=== PATIENT | male | born 1965 | race Caucasian/White ===

== ENCOUNTER 2016-12-14 00:31 | Emergency (ER) | payer OTHER ==
[~2016-12-14] VITALS: Ht 170.2 cm; Wt 64.7 kg
[2016-12-14 00:33] VITALS: BP 107/71; PULSE 71; TEMP 36.8; O2SAT 96; Ht 170.2 cm; Wt 64.7 kg
[2016-12-14] MEDS ORDERED: KETOROLAC TROMETHAMINE 60 MG/2 ML VIAL IM STA (00:43)
--- NOTE | 2016-12-14 01:30 | EMERGENCY ROOM VISIT NOTE ---
History First contact with patient: 00:35 Chief Complaint: BACK PAIN Stated Complaint: BACK MUSCLE History of Present Illness The patient is a 51 year old male who presents to the Emergency Room with complaints of low back pain described as aching, ranging in severity 8 out of 10 that radiates to his right side. He does a lot of lifting yesterday. Movement makes it worse, nothing makes it better. Patient does smoke and has COPD. Patient denies chest pain, dyspnea, fever, chills, nausea, vomiting, diarrhea, abdominal pain, leg pain or weakness, inability to walk, fever, chills , IV drug abuse. No trauma to the back. Review of Systems See HPI for pertinent positives & negatives. A total of 10 systems reviewed and were otherwise negative. Past Medical/Surgical History Medical Problems: (1) Asthma (2) Broken ribs (3) Low back pain (4) Lower back pain (5) Sacral contusion Surgical Problems: (1) History of hernia repair COPD Family History Diabetes mellitus Social History Smoking Status: Current Every Day Smoker Alcohol Use: occasionally Drug Use: none Marital Status: Housing Status: lives with significant other Occupation Status: unemployed Current/Historical Medications No Active Prescriptions or Reported Meds Allergies Coded Allergies: No Known Allergies (Unverified , 12/14/16) Physical Exam Vital Signs Date Time Temp Pulse Resp B/P Pulse Ox O2 Delivery O2 Flow Rate FiO2 12/14/16 00:33 36.8 71 18 107/71 96 Room Air Physical Exam VITALS: Vitals are noted on the nurse's note and reviewed by myself. Vital signs stable. GENERAL: Pleasant male, in no acute distress, nondiaphoretic, well-developed well-nourished. SKIN: Capillary reflex less than 2 seconds. HEENT: Normocephalic. PERRLA. EOMI. Nares patent. Mucous membranes moist. Neck is supple without nuchal rigidity. HEART: Regular rate and rhythm LUNGS: Mild diffuse end expiratory wheezes, without rales or rhonchi. No retractions or accessory muscle use. ABDOMEN: Positive bowel sounds x 4. Normal tympanic percussion. Soft, nontender, without masses or organomegaly. Leyva sign negative. No guarding or rebound tenderness. MUSCULOSKELETAL: No gross musculoskeletal defects. No thoracic tenderness on exam. Mid lumbar tenderness on exam easily reproducing symptoms. Straight leg raise. Patient can walk on toes and heels. 5 out of 5 strength throughout NEURO: Patient was alert and oriented to person place and time. Normal sensation to light and sharp touch. Deep tendon reflexes 2+, patella bilaterally. No focal neurological deficits. Medical Decision & Procedures Medications Administered Medications (Trade) Dose Ordered Sig/Jf Route Start Time Stop Time Status Last Admin Dose Admin Ketorolac Tromethamine (Toradol Inj) 60 mg NOW STAT IM 12/14/16 00:43 12/14/16 00:44 DC 12/14/16 00:43 60 MG ED Course Prior records/ancillary studies reviewed. Triage Nursing notes reviewed. Additional history obtained from []. The patient's history was concerning for back pain. Differential diagnosis: Etiologies such as musculoskeletal, disc herniation, fracture, aortic disease, metastatic disease, cord compression, discitis, infection, renal colic, gastrointestinal, acute exacerbation of chronic back pain, sciatica, cauda equina, as well as others were entertained. Physical findings: As above. No focal neurologic findings noted. [] ER treatment provided: [] On reassessment the patient felt better. Diagnostics interpreted by me: The labs revealed [] Imaging studies: CT L SPINE: No fracture or malalignment. Left far lateral disc protrusion (lateral aspect of the neural foramina) at L3- 4 with mild to moderate narrowing of the left neural foramen and may be touching the exiting nerve root. No significant central canal narrowing. Somewhat limited by motion. There may be may be trace left perinephric stranding. No renal obstruction. Radiologist: Km Mcpherson M.D. This appears to be consistent with []. The patient's physical examination and detailed history did not reveal any red flags for back pain such as those listed in the differential diagnosis. Therefore advanced diagnostics and consultations were felt to be unwarranted. By the evaluation outlined above emergent etiologies such as fracture, aortic disease, metastatic disease, infection, renal colic, gastrointestinal, cord compression, cauda equina, as well as others were deemed relatively unlikely. The pt informed about the findings as listed above. All questions were answered and pleased with the treatment. Return instructions were outlined and the patient was discharged in stable condition. Outpatient prescription management: Oxy IR 5mg 1-2 po Q4 hrs prn Referral: The patient was referred back to primary care physician for follow-up in 2 to 3 days for a recheck of the current condition. Medical Decision as above Impression Primary Impression: Lumbar strain Departure Information Dispostion Home / Self-Care Condition GOOD Prescriptions No Active Prescriptions or Reported Meds Referrals No Doctor, Assigned (PCP) Patient Instructions My [facility] Additional Instructions DO NOT drive, drink alcohol, operate machinery, or perform dangerous activities today. You were given medications in the ER that can affect your ability to safely function or operate a vehicle. Oxycodone (OxyIR) 5mg: Take 1-2 pills every four hours for breakthrough pain. Avoid alcohol, operating machinery or dangerous equipment, working on ladders or roofs, DRIVING, or situations where being under the influence may be dangerous. It is recommended to use an btsb-qhc-tfkyrxv stool softener such as Colace, 100mg twice daily while taking this medication to avoid constipation. Ibuprofen(Motrin, Advil) may be used for fever or pain. Use 600mg every six hours as needed. Take with food. Avoid using more than 2400mg in a 24 hour period. Do not use 2400mg per day for more than three consecutive days without physician direction. Prolonged inappropriate use can lead to stomach upset or ulcers. This medication can be taken if you need to drive, work, or perform activities which may be dangerous when taking narcotic pain medication. (AND/OR) Acetaminophen(Tylenol) may be used for fever or pain. Use 1000mg every six hours as needed. Avoid using more than 3000mg in a 24 hour period. This medication can be taken if you need to drive, work, or perform activities which may be dangerous when taking narcotic pain medication. Rest and avoid heavy lifting until your symptoms resolve and then gradually return to full activity. A good rule of thumb is if it hurts your back to perform a certain activity, then it should be avoided until you are healthy again. A heating pad, warm compresses, or a hot shower may help with tight muscles and can be done several times a day as needed. Continue current medications. Return to the ER immediately for any numbness, tingling, severe pain, loss of control of your bowels or bladder, inability to walk, or as needed. Follow up with your primary care physician/orthopedics spine within 3-5 days for a recheck of your current condition. Problem Qualifiers Primary Impression: Lumbar strain Encounter type: initial encounter Qualified Codes: S39.012A - Strain of muscle, fascia and tendon of lower back, initial encounter
[2016-12-14] MEDS ORDERED: OXYC1TAB3 PO (01:32)
[2016-12-14] MEDS ORDERED: OXYCODONE IR HOME PACK PO ONE (01:45)
--- NOTE | 2016-12-14 07:30 | DIAGNOSTIC IMAGING REPORT ---
CT SCAN OF THE LUMBAR SPINE WITHOUT IV CONTRAST CLINICAL HISTORY: Low back pain. Lifting injury. COMPARISON STUDY: Radiographs of lumbar spine dated 05/22/2016. TECHNIQUE: CT scan of lumbar spine is performed from the lower thoracic spine to the sacrum. Images are reviewed in the axial, sagittal, and coronal planes. IV contrast was not administered for this examination. CT DOSE: 618.77 mGy.cm FINDINGS: The skeletal structures are well mineralized. There is no evidence of fracture or malalignment. Vertebral body height and alignment are maintained. The transverse and spinous processes are intact. There is no spondylolysis. No lytic or blastic lesions are seen. Small anterior osteophytes are seen throughout. The disc spaces are preserved. The central canal appears patent. No large disc herniation is seen. Minimal disc bulge is noted at L4-L5 and L5-S1. There is left lateral disc bulge at L3-L4 which causes mild subarticular stenosis. No significant neural foraminal stenosis is appreciated. The paraspinous soft tissues are within normal limits. There is minimal atherosclerotic calcification of the abdominal aorta. The visualized sacrum and bony pelvis are intact. IMPRESSION: No acute bony abnormality is seen involving the lumbar spine. Electronically signed by: Chris Soni M.D. 12/14/2016 7:29 AM Dictated Date/Time: 12/14/2016 7:23 AM
== END 2016-12-14 01:39 | disposition home or self-care (01) ==
LOC: C.EDB 00:31
DX: S39.012A Strain of muscle, fascia and tendon of lower back, initial encounter (principal); J44.9 Chronic obstructive pulmonary disease, unspecified; J45.909 Unspecified asthma, uncomplicated; F17.200 Nicotine dependence, unspecified, uncomplicated; Z83.3 Family history of diabetes mellitus; X50.0XXA Overexertion from strenuous movement or load, initial encounter; Y99.8 Other external cause status

== ENCOUNTER 2017-02-12 22:41 | Emergency (ER) | payer OTHER ==
[~2017-02-12] VITALS: Ht 170.2 cm; Wt 63.7 kg
[~2017-02-12 22:41] MED LIST: OXYC1TAB3 PO
[2017-02-12 22:51] VITALS: TEMP 36.4; Ht 170.2 cm; Wt 63.7 kg
[2017-02-12] MEDS ORDERED: TRAMADOL HCL 50 MG HOME PACK PO ONE (23:45)
[2017-02-12] MEDS ORDERED: TRAM-10 PO (23:53)
[2017-02-12] MEDS ORDERED: PRED50TA PO (23:53)
--- NOTE | 2017-02-12 23:54 | EMERGENCY ROOM VISIT NOTE ---
ED Visit Note First contact with patient: 23:04 Chief Complaint: Low Back Pain, Fell on LEFT Hip/Tailbone History of Present Illness: Patient is a 51-year-old male who presents to the emergency Department this evening for evaluation of his low back pain. He reports a history of chronic low back pain issues. He reports that while outside in his yard, he slipped in the grass causing him to fall and landing on a rock. He reports immediate pain. He is tried ibuprofen and Tylenol without relief of symptoms. He denies any numbness or tingling into the distal tremor. He reports no loss of control bowel/bladder saddle anesthesia. The patient rates his current discomfort as an 8/10. He denies abdominal pain, hematuria, or dysuria. Medications: Reviewed and discussed with the patient. Allergies: No known allergies. PMH: No pertinent past medical history. SHx: Patient is a 51-year-old male who lives locally. ROS: All pertinent positive and negative review of systems are appropriately documented in the History of Present Illness. Physical Exam: VITAL SIGNS - Vital signs and nursing notes were reviewed. GENERAL - 51-year-old male appearing his stated age and in noticeable discomfort throughout the exam. NECK - FROM of the cervical spine. ABDOMEN - Abdominal contour flat without pulsations or visible masses. BS normoactive all four quadrants. No tenderness, palpable masses, hepatosplenomegaly, or ascites noted. MUSCULOSKELETAL - ROM of the lumbar spine region was subjectively limited secondary to patient discomfort. Pt was seated on the exam table. Pt made semi- guarded movements when asked to change position. No step-off deformities were palpated down the thoracolumbar spines. Moderate subjective Tenderness to Palpation experienced at the level of the LEFT sided lumbar paraspinal muscle distribution. No reproducible tenderness to palpation across the iliac spine. NEUROLOGIC - REFLEXES: +3/4 patellar reflexes B/L. SENSORY: Spinothalamic tract was found to be intact with ability to discriminate sharp versus dull sensation at the level of hip joint down do the great toe. No sensory defects of the dorsal column were appreciated utilizing light touch for evaluation. CEREBELLAR: Pt able to perform rapid alternating movements of the feet. EXTREMITIES - Range of Motion - No tremors, ticks, or fasciculations of the lower extremities noticed during inspection. Pt had +5/5 strength appreciated bilaterally in the lower extremities against examiner's resistance. VASCULAR - Capillary refill of the great toe was brisk. No mottling or blanching of the extremities present. +3/5 dorsalis pedis pulses palpated bilaterally. IMAGING: X-ray of the lumbar spine was obtained and reviewed by myself. No acute fractures, dislocations, or subluxations appreciated per my interpretation. Radiologist's impression unavailable at the time of dictation. ED Course: Patient was seen and evaluate by myself. Previous emergency department visit notes were reviewed. The patient has been seen in multiple occasions for pain related complaints, particularly of his lumbar spine. He does complain a recent fall, however his exam is not consistent with any new or recent trauma. X-ray demonstrates no acute fractures. The patient was provided Ultram for home as well as prednisone. He'll follow-up with his primary care provider for continued management. He will return for any changing/worsening symptoms. Patient discharged home in good condition. In the evaluation and treatment of this patient the following differential diagnoses were considered: Cauda equina syndrome, discitis, HNP, sciatica, epidural abscess, psoas abscess, musculoskeletal strain, lumbar fracture, lumbar dislocation, lumbar subluxation, spondylolisthesis, spondylosis, or compression fracture. Impression: Fall, Lumbar Contusion Discharge Instructions: You have been treated in the Emergency Department for Back Pain. You have received pain medicine in the emergency department which impairs your ability to operate a vehicle. It is illegal for you to drive after receiving these medicines. You have been prescribed Ultram to be used for pain control. You cannot drive or consume alcohol while on this medicine. This medicine should only be used for pain that cannot be controlled with evwd-jhd-cpuhbbt pain medicines. You have been prescribed Prednisone 50 mg to be taken orally once a day for the next 4 days. This is an anti-inflammatory medicine to be used to help minimize your symptoms. You should take the COMPLETE course of the medication. For pain control, you can use the following hzjw-cqt-jpysgrb medicines (if >12 yo): - Regular strength (325mg/tab) Tylenol (acetaminophen) 2 tabs every 4-6 hours as needed. Do not exceed 12 tablets in a 24 hour period. Avoid taking more than 4 grams (4000 mg) of Tylenol per day. This includes any other sources of acetaminophen you may take on a regular basis. - Regular strength (200 mg/tab) Advil (ibuprofen) 1-2 tabs every 4-6 hours as needed. Do not exceed a dose of 3200 mg per day. If this is an acute injury, ice can be applied to the area of pain for the first 3 days to help decrease pain and inflammation. After the first 3 days, a heating pad can be used over the area for continued soothing relief. You should schedule a follow-up appointment in 2-3 days with your Primary Care Provider for further evaluation and treatment of your back pain. Return to the Emergency Department if your current symptoms worsen despite treatment course outlined above, or if you develop any of the following symptoms : intractable pain despite aforementioned treatment course, loss of control of your bowel or bladder, numbness or tingling in your groin, or development of a fever. Problem List Medical Problems: (1) Asthma Status: Chronic (2) Broken ribs Status: Resolved (3) Low back pain Status: Resolved (4) Lower back pain Status: Resolved (5) Sacral contusion Status: Resolved Surgical Problems: (1) History of hernia repair Status: Resolved Current/Historical Medications Scheduled Prednisone (Prednisone), 50 MG PO DAILY Scheduled PRN Tramadol (Ultram), 1-2 TAB PO Q4H PRN for Pain Allergies Coded Allergies: No Known Allergies (Unverified , 02/12/17) Vital Signs Date Time Temp Pulse Resp B/P Pulse Ox O2 Delivery O2 Flow Rate FiO2 02/13/17 00:02 75 18 114/81 95 02/12/17 22:51 36.4 79 19 112/63 96 Room Air Medications Administered Medications (Trade) Dose Ordered Sig/Jf Route Start Time Stop Time Status Last Admin Dose Admin Prednisone (PredniSONE TAB) 60 mg NOW STAT PO 02/12/17 23:45 02/12/17 23:46 DC 02/12/17 23:51 60 MG Tramadol HCl (Ultram Home Pack) 1 homepack UD ONCE PO 02/12/17 23:45 02/12/17 23:46 DC 02/12/17 23:51 1 HOMEPACK Departure Information Impression Primary Impression: Low back pain Additional Impression: Lumbar contusion Dispostion Home / Self-Care Condition GOOD Prescriptions Tramadol (Ultram) 50 Mg Tab 1-2 TAB PO Q4H Y for Pain, #10 TAB For Initial Treatment Prov: Pablo ShafferNIKKIE 02/12/17 Prednisone (Prednisone) 50 Mg Tab 50 MG PO DAILY for 4 Days, #4 TAB Prov: Pablo Shaffer PA-C 02/12/17 Referrals No Doctor, Assigned (PCP) Patient Instructions My [facility] Additional Instructions You have been treated in the Emergency Department for Back Pain. You have received pain medicine in the emergency department which impairs your ability to operate a vehicle. It is illegal for you to drive after receiving these medicines. You have been prescribed Ultram to be used for pain control. You cannot drive or consume alcohol while on this medicine. This medicine should only be used for pain that cannot be controlled with rkpe-nze-pqnvifz pain medicines. You have been prescribed Prednisone 50 mg to be taken orally once a day for the next 4 days. This is an anti-inflammatory medicine to be used to help minimize your symptoms. You should take the COMPLETE course of the medication. For pain control, you can use the following sxzc-lrw-srbuhvh medicines (if >12 yo): - Regular strength (325mg/tab) Tylenol (acetaminophen) 2 tabs every 4-6 hours as needed. Do not exceed 12 tablets in a 24 hour period. Avoid taking more than 4 grams (4000 mg) of Tylenol per day. This includes any other sources of acetaminophen you may take on a regular basis. - Regular strength (200 mg/tab) Advil (ibuprofen) 1-2 tabs every 4-6 hours as needed. Do not exceed a dose of 3200 mg per day. If this is an acute injury, ice can be applied to the area of pain for the first 3 days to help decrease pain and inflammation. After the first 3 days, a heating pad can be used over the area for continued soothing relief. You should schedule a follow-up appointment in 2-3 days with your Primary Care Provider for further evaluation and treatment of your back pain. Return to the Emergency Department if your current symptoms worsen despite treatment course outlined above, or if you develop any of the following symptoms : intractable pain despite aforementioned treatment course, loss of control of your bowel or bladder, numbness or tingling in your groin, or development of a fever. Problem Qualifiers Primary Impression: Low back pain Chronicity: acute Back pain laterality: left Sciatica presence: without sciatica Qualified Codes: M54.5 - Low back pain Additional Impression: Lumbar contusion Encounter type: initial encounter Qualified Codes: S30.0XXA - Contusion of lower back and pelvis, initial encounter
[2017-02-13 00:02] VITALS: BP 114/81; PULSE 75; O2SAT 95
--- NOTE | 2017-02-13 07:21 | DIAGNOSTIC IMAGING REPORT ---
LUMBAR SPINE 5 VIEWS CLINICAL HISTORY: Chronic low back pain. FINDINGS: 5 views of the lumbar spine are compared to study dated 05/22/2016. The skeletal structures are well mineralized. There is no radiographic evidence of fracture or malalignment. Vertebral body height and alignment are maintained. Small anterior osteophytes are seen throughout. Mild spinal curvature is positional. The transverse and spinous processes are intact. There is no evidence of spondylolysis. The intervertebral disc spaces are well-maintained. Mild degenerative endplate sclerosis seen at L1-L2. The visualized bony pelvis appears intact. There is a nonobstructed abdominal bowel gas pattern. IMPRESSION: No acute bony abnormality is seen involving the lumbosacral spine. Electronically signed by: Chris Soni M.D. 02/13/2017 7:19 AM Dictated Date/Time: 02/13/2017 7:18 AM
== END 2017-02-13 00:03 | disposition home or self-care (01) ==
LOC: C.EDB 22:43 → C.EDC 02-13 00:03
DX: S30.0XXA Contusion of lower back and pelvis, initial encounter (principal); W01.0XXA Fall on same level from slipping, tripping and stumbling without subsequent striking against object, initial encounter

== ENCOUNTER 2017-02-20 21:02 | Emergency (ER) | payer OTHER ==
[~2017-02-20] VITALS: Ht 170.2 cm; Wt 62.1 kg
[~2017-02-20 21:02] MED LIST changes: -OXYC1TAB3 PO; +TRAM-10 PO
[2017-02-20 21:14] VITALS: TEMP 36.5; Ht 170.2 cm; Wt 62.1 kg
--- NOTE | 2017-02-20 21:37 | EMERGENCY ROOM VISIT NOTE ---
ED Visit Note First contact with patient: 21:20 CHIEF COMPLAINT: Tick in the left axilla HISTORY OF PRESENT ILLNESS: 51-year-old white male who noticed a tick embedded in the left axillary area this afternoon. They did not attempt to remove it. He believes that has been on for less than 24 hours. REVIEW OF SYSTEMS: Review of systems as per HPI. All other systems reviewed were negative. At least 6 systems reviewed. PMH: Electronic medical records are reviewed and summarized as above/below. See Problem List. SOCIAL HISTORY: Patient lives at home. Smoker. PHYSICAL EXAM: Vital signs are stable. There is an intact tick in the left axilla. There is a small zone of inflammation around it. EMERGENCY DEPARTMENT COURSE: The intact tick was removed with the Tick Twister device. Bacitracin was applied. Patient was instructed as below. There is no indication for antibiotic prophylaxis for Lyme testing. DISCHARGE INSTRUCTIONS & TREATMENT: Keep antibiotic ointment on bite site for 2 days. Use Ibuprofen or Tylenol as needed for pain/discomfort. Watch for signs of infection; increasing redness and swelling, pus like drainage or fevers. Follow up with family physician for continued care and treatment; rashes, bullet lesion, muscle or joint pain or any signs of infection. Problem List Medical Problems: (1) Asthma Status: Chronic (2) Back strain Status: Resolved (3) Broken ribs Status: Resolved (4) Chronic Obstructive Pulmonary Disease, Unspecified Status: Chronic (5) Exacerbation of chronic back pain Status: Chronic (6) Heart disease Status: Chronic (7) Hypertension Status: Chronic (8) Low back pain Status: Resolved (9) Lower back pain Status: Resolved (10) Lumbago Status: Chronic (11) Lumbar contusion Status: Resolved (12) Lumbar strain Status: Resolved (13) Lumbar strain Status: Resolved (14) Sacral contusion Status: Resolved (15) Strain of shoulder, right Status: Resolved Surgical Problems: (1) History of hernia repair Status: Resolved Current/Historical Medications No Active Prescriptions or Reported Meds Allergies Coded Allergies: No Known Allergies (Unverified , 02/12/17) Vital Signs Date Time Temp Pulse Resp B/P Pulse Ox O2 Delivery O2 Flow Rate FiO2 02/20/17 21:47 80 20 107/64 93 02/20/17 21:14 36.5 75 16 99/62 94 Room Air Departure Information Impression Primary Impression: Tick bite Prescriptions No Active Prescriptions or Reported Meds Referrals No Doctor, Assigned (PCP) Patient Instructions My [facility] Additional Instructions Use Ibuprofen or Tylenol as needed for pain/discomfort. Follow up with family physician for continued care and treatment; rashes, bullet lesion, muscle or joint pain. Watch for signs of infection; increasing redness and swelling, pus like drainage or fevers. Keep antibiotic ointment on the site for 2-3 days. Return to the ED for signs of infection.
[2017-02-20 21:47] VITALS: BP 107/64; PULSE 80; O2SAT 93
== END 2017-02-20 21:48 | disposition home or self-care (01) ==
LOC: C.EDB 21:05 → C.EDD 21:48
DX: S40.862A Insect bite (nonvenomous) of left upper arm, initial encounter (principal); W57.XXXA Bitten or stung by nonvenomous insect and other nonvenomous arthropods, initial encounter; J45.909 Unspecified asthma, uncomplicated; J44.9 Chronic obstructive pulmonary disease, unspecified; M54.5 Low back pain; G89.29 Other chronic pain; I10 Essential (primary) hypertension; F17.210 Nicotine dependence, cigarettes, uncomplicated; I51.9 Heart disease, unspecified

== ENCOUNTER 2017-02-26 12:56 | Emergency (ER) | payer OTHER ==
[~2017-02-26] VITALS: Ht 170.2 cm; Wt 65.0 kg
[2017-02-26 12:59] VITALS: TEMP 36.5; Ht 170.2 cm; Wt 65.0 kg
[2017-02-26] MEDS ORDERED: ONDANSETRON 4MG OD TAB PO STA (13:43)
[2017-02-26] MEDS ORDERED: KETOROLAC TROMETHAMINE 60 MG/2 ML VIAL IM STA (13:43)
[2017-02-26] MEDS ORDERED: HYDROmorphone INJ 1 MG/ML SYR IM STA (13:43)
[2017-02-26] MEDS ORDERED: CYCLOBENZAPRINE HCL 10 MG TAB PO STA (13:43)
[2017-02-26] MEDS ORDERED: CYCL10TA6 PO (14:39)
[2017-02-26] MEDS ORDERED: OXYC1TAB3 PO (14:39)
--- NOTE | 2017-02-26 14:40 | EMERGENCY ROOM VISIT NOTE ---
ED Visit Note First contact with patient: 13:21 CHIEF COMPLAINT: Left low back pain 2 days HISTORY OF PRESENT ILLNESS: Patient is a 51-year-old white male who presents emergency department for evaluation of left low back pain. He states his symptoms started yesterday after he had been shoveling stone at work the day prior. He does have a history of low back pain. He complains of pain in the left low back that radiates toward the buttocks. It is worse with movement. He is having difficulty getting comfortable. He is unable to stand upright due to the discomfort. He states that the pain was tolerable yesterday, but worsened today and he presently rates it a 10/10. He took Tylenol for his discomfort yesterday without relief. He denies any bowel or bladder incontinence or saddle anesthesias. No numbness, tingling or weakness radiating into the legs. Patient reportedly sustained a fall a couple weeks ago for which she was evaluated here and had negative x-rays, otherwise denies any recent direct trauma. REVIEW OF SYSTEMS: Review of systems as per HPI. All other systems reviewed were negative. At least 6 systems reviewed. PMH: Electronic medical records are reviewed and summarized as above/below. See Problem List. Patient was seen by myself. Therefore a tick removal. SOCIAL HISTORY: Patient lives at home with his . Employed.. PHYSICAL EXAM: Vital Signs: Reviewed Nurse's notes. CONSTITUTIONAL: Patient is a and uncomfortable-appearing 61-year-old white male who is awake and alert and sitting upright on the gurney, leaning to the right on a pillow. There is significant discomfort with position changes. CARDIOVASCULAR: Regular rate and rhythm, with normal S1 and S2, no murmur or gallop or rub is heard. No carotid bruits auscultated. No JVD. Peripheral pulses easily palpable. RESPIRATORY: Breath sounds equal and clear to auscultation without wheezes, rales, or rhonchi heard. Full and equal chest expansion without accessory muscle use or retractions. ABDOMEN: Bowel sounds are present. Abdomen is soft, nontender and nondistended. INTEGUMENTARY: No lesions or rash, normal skin turgor. LYMPH: No lymphadenopathy. SPINE: Examination of the patient's back does not demonstrate any ecchymosis, abrasions or outward signs of trauma. No erythema, increased warmth or induration. Patient has no midline discomfort to palpation over the lumbar spinous processes, has reproducible discomfort in the left paraspinous musculature. There is no pain over the SI joint or the sciatic notch. He has increased pain with range of motion including rotation and flexion. EXTREMITIES: Leg lengths are symmetrical. Negative logroll bilaterally. Normal strength including dorsi-flexion and plantar flexion of the great toes and ankles and flexion and extension of the knees and flexion of the hips. Negative bilateral straight leg raise testing. Lower extremity DTRs are equal and symmetrical bilaterally. Distal pulses are easily palpable. Sensation light touch is intact over the lower extremities bilaterally. EMERGENCY DEPARTMENT COURSE: The patient was seen and evaluated as above. Old records are reviewed. Patient was here for a back injury at the beginning of month when he had fallen. He had radiographs at that time. Patient's mechanism of injury is not consistent with trauma and therefore was not felt that any additional radiographs were indicated at this time. Patient was medicated with Zofran 4 mg ODT, Flexeril 10 mg orally, Dilaudid 1 mg IM and Toradol 60 mg IM. He was observed for over 30 minutes, and reassess. He felt more comfortable, still rated his pain a 6 out of 10. He felt well enough to be discharged home. He was given a short course of Flexeril and oxycodone to use for pain. His is driving. He was encouraged to follow-up with his primary care provider for further care and evaluation of his back pain if his symptoms are not improving. MEDICAL DECISION MAKING: I do not suspect acute compression syndrome, cauda equina, diskitis, epidural abscess, hematoma or neurovascular compromise. Patient was reviewed in the [facility] Prescription Drug Monitoring Program, and there were no red flags noted. Problem List Medical Problems: (1) Asthma Status: Chronic (2) Back strain Status: Resolved (3) Broken ribs Status: Resolved (4) Chronic Obstructive Pulmonary Disease, Unspecified Status: Chronic (5) Exacerbation of chronic back pain Status: Chronic (6) Heart disease Status: Chronic (7) Hypertension Status: Chronic (8) Low back pain Status: Resolved (9) Lower back pain Status: Resolved (10) Lumbago Status: Chronic (11) Lumbar contusion Status: Resolved (12) Lumbar strain Status: Resolved (13) Lumbar strain Status: Resolved (14) Sacral contusion Status: Resolved (15) Strain of shoulder, right Status: Resolved (16) Tick bite Status: Resolved Surgical Problems: (1) History of hernia repair Status: Resolved Current/Historical Medications Scheduled PRN Cyclobenzaprine Hcl (Flexeril), 10 MG PO TID PRN for Muscle Spasms Oxycodone Immediate Rel Tab (Roxicodone Ir), 1-2 TAB PO Q4H PRN for Severe Pain Allergies Coded Allergies: No Known Allergies (Unverified , 02/26/17) Vital Signs Date Time Temp Pulse Resp B/P Pulse Ox O2 Delivery O2 Flow Rate FiO2 02/26/17 14:55 50 18 103/66 98 Room Air 02/26/17 12:59 36.5 90 18 113/69 94 Room Air Medications Administered Medications (Trade) Dose Ordered Sig/Jf Route Start Time Stop Time Status Last Admin Dose Admin Ketorolac Tromethamine (Toradol Inj) 60 mg NOW STAT IM 02/26/17 13:43 02/26/17 13:44 DC 02/26/17 14:00 60 MG Hydromorphone HCl (Dilaudid Inj) 1 mg NOW STAT IM 02/26/17 13:43 02/26/17 13:44 DC 02/26/17 14:00 1 MG Ondansetron HCl (Zofran Odt) 4 mg NOW STAT PO 02/26/17 13:43 02/26/17 13:44 DC 02/26/17 14:00 4 MG Cyclobenzaprine HCl (Flexeril Tab) 10 mg NOW STAT PO 02/26/17 13:43 02/26/17 13:44 DC 02/26/17 14:00 10 MG Departure Information Impression Primary Impression: Lumbar strain Prescriptions Cyclobenzaprine Hcl (FLEXERIL) 10 Mg Tab 10 MG PO TID Y for Muscle Spasms, #30 TAB Prov: Yaquelin Green PA 02/26/17 Oxycodone Immediate Rel Tab (ROXICODONE IR) 5 Mg Tab 1-2 TAB PO Q4H Y for Severe Pain, #25 TAB For Initial Treatment Prov: Yaquelin Green PA 02/26/17 Referrals No Doctor, Assigned (PCP) Patient Instructions My [facility] Additional Instructions DO NOT drive, drink alcohol, operate machinery, or perform dangerous activities today. You were given medications in the ER that can affect your ability to safely function or operate a vehicle. Oxycodone (OxyIR) 5mg: Take 1-2 pills every four hours for breakthrough pain. Avoid alcohol, operating machinery or dangerous equipment, working on ladders or roofs, DRIVING, or situations where being under the influence may be dangerous. It is recommended to use an [id number] stool softener such as Colace, 100mg twice daily while taking this medication to avoid constipation. Cyclobenzaprine (Flexeril) 10 mg: Take 1 pills 3 times daily as needed for muscle spasms.. Avoid alcohol, operating machinery or dangerous equipment, working on ladders or roofs, DRIVING, or situations where being under the influence may be dangerous. Ibuprofen(Motrin, Advil) may be used for fever or pain. Use 600mg every six hours as needed. Take with food. Avoid using more than 2400mg in a 24 hour period. Do not use 2400mg per day for more than three consecutive days without physician direction. Prolonged inappropriate use can lead to stomach upset or ulcers. This medication can be taken if you need to drive, work, or perform activities which may be dangerous when taking narcotic pain medication. (AND/OR) Acetaminophen(Tylenol) may be used for fever or pain. Use 1000mg every six hours as needed. Avoid using more than 3000mg in a 24 hour period. This medication can be taken if you need to drive, work, or perform activities which may be dangerous when taking narcotic pain medication. Rest and avoid heavy lifting until your symptoms resolve and then gradually return to full activity. A good rule of thumb is if it hurts your back to perform a certain activity, then it should be avoided until you are healthy again. A heating pad, warm compresses, or a hot shower may help with tight muscles and can be done several times a day as needed. Continue current medications. Return to the ER immediately for any numbness, tingling, severe pain, loss of control of your bowels or bladder, inability to walk, or as needed. Follow up with your primary care physician within 3-5 days for a recheck of your current condition.
[2017-02-26 14:55] VITALS: BP 103/66; PULSE 50; O2SAT 98
== END 2017-02-26 14:55 | disposition home or self-care (01) ==
LOC: C.EDB 12:57 → C.EDC 14:55
DX: S39.012A Strain of muscle, fascia and tendon of lower back, initial encounter (principal); X50.9XXA Other and unspecified overexertion or strenuous movements or postures, initial encounter; G89.29 Other chronic pain; M54.5 Low back pain; J45.909 Unspecified asthma, uncomplicated; J44.9 Chronic obstructive pulmonary disease, unspecified; I10 Essential (primary) hypertension

== ENCOUNTER 2017-06-08 14:52 | Emergency (ER) | payer OTHER ==
[~2017-06-08] VITALS: Ht 170.2 cm; Wt 65.7 kg
[~2017-06-08 14:52] MED LIST changes: +OXYC1TAB3 PO; -TRAM-10 PO
[2017-06-08 14:56] VITALS: TEMP 36.5; Ht 170.2 cm; Wt 65.7 kg
[2017-06-08] MEDS ORDERED: HYDROCODONE/ACETAMOPHEN 5/325MG TAB PO STA (15:08)
[2017-06-08] MEDS ORDERED: HYDR-4383 PO (15:23)
--- NOTE | 2017-06-08 15:24 | EMERGENCY ROOM VISIT NOTE ---
History Report prepared by Brayan: Melissa Noyola Under the Supervision of: Dr. Aramis Williamson M.D. First contact with patient: 14:59 Chief Complaint: BACK PAIN Stated Complaint: BACK PAIN History of Present Illness The patient is a 51 year old male who presents to the Emergency Room with complaints of worsening back pain starting last week. He has had an MRI which showed that he has a pinched nerve in his spine and a disc. He ran out of his Vicodin 10 mg last week and is having a lot of pain. He was taking 1 Vicodin a day. He is following with pain management next week for more pain medications. He was sent to the ED for pain medications in the meantime. He denies getting any prescriptions recently. He denies any new back injury, loss of bladder or bowel control, or weakness in the legs. The patient is on steroids. Source of History: patient Onset: last week Position: back Quality: other (pain) Timing: worsening Modifying Factors (Relieving): narcotics Associated Symptoms: No weakness Note: Pt denies back injury, loss of bowel or bladder control. Review of Systems See HPI for pertinent positives & negatives. A total of 6 systems reviewed and were otherwise negative. Past Medical & Surgical Medical Problems: (1) Asthma (2) Back strain (3) Broken ribs (4) Chronic Obstructive Pulmonary Disease, Unspecified (5) Exacerbation of chronic back pain (6) Heart disease (7) Hypertension (8) Low back pain (9) Lower back pain (10) Lumbago (11) Lumbar contusion (12) Lumbar strain (13) Lumbar strain (14) Sacral contusion (15) Strain of shoulder, right (16) Tick bite Surgical Problems: (1) History of hernia repair Family History Diabetes mellitus Social History Smoking Status: Current Every Day Smoker Alcohol Use: occasionally Drug Use: none Marital Status: Housing Status: lives with significant other Occupation Status: unemployed Current/Historical Medications Scheduled PRN Hydrocodone/Acetaminophen ([place] 10/325 Tab), 1 TAB PO Q6H PRN for Pain Allergies Coded Allergies: No Known Allergies (Unverified , 06/08/17) Physical Exam Vital Signs Date Time Temp Pulse Resp B/P (MAP) Pulse Ox O2 Delivery O2 Flow Rate FiO2 06/08/17 15:31 63 18 103/63 97 06/08/17 14:56 36.5 70 18 117/68 99 Room Air Physical Exam GENERAL: Patient is uncomfortable appearing and in mild distress. HEENT: No acute trauma, normocephalic atraumatic, mucous membranes moist, no nasal congestion, no scleral icterus. NECK: No stridor, no adenopathy, no meningismus, trachea is midline. LUNGS: No dyspnea. Clear to auscultation and equal bilaterally. No wheeze, no rhonchi. HEART: Regular rate and rhythm. No murmurs, rubs, gallops appreciated. BACK: No midline tenderness, no CVA tenderness EXTREMITIES: Normal motion all extremities, no cyanosis, no edema. NEUROLOGIC: Alert and oriented, no acute motor or sensory deficits, no focal weakness, cranial nerves grossly intact. SKIN: No rash, no jaundice, no diaphoresis. Medical Decision & Procedures Medications Administered Medications (Trade) Dose Ordered Sig/Jf Route Start Time Stop Time Status Last Admin Dose Admin Acetaminophen/ Hydrocodone Bitart ([place] 5/325 Tab) 2 tab NOW STAT PO 06/08/17 15:08 06/08/17 15:09 DC 06/08/17 15:30 2 TAB ED Course 1502: The patient was evaluated in room A12B. A complete history and physical exam was performed. 1508: Hydrocodone Bitart/Acetaminophen 2 tab PO. 1510: I reevaluated the patient. I discussed results and discharge instructions : He verbalized understanding and agreement. The patient is ready for discharge. Medical Decision Differential: Musculoskeletal, Disc Herniation, Fracture, Cord Compression, Discitis, Infectious, Aortic Pathology, Renal Colic, UTI/Pyelonephritis, Acute Exacerbation of Chronic Pain, Sciatica, Cauda Equina, amongst other pathologies entertained. 51 yr old male with low back pain s/p injury a few months ago. Pain worsened since running out of pain medications recently. No-one will write him them until seen by pain management per patient. Exam consistent with uncomfortable male though no acute neuro deficits. Already with MRI imaging as outpatient. He is only using one norco daily and I think in this case it is reasonable to take him at his word and treat his discomfort. Reviewed need to in future discuss pain medications with pcp/spine/painmanagement. RTED at any time if worsening or other concerns. [place] Drug [place] Search Results: patient reviewed within database Drug Monitoring Findings: Patient had a prescription for 30 tabs of Vicodin 10 mg filled on April 25. Medication Reconcilliation Current Medication List: was personally reviewed by me Blood Pressure Screening Patient's blood pressure: Normal blood pressure Blood pressure disposition: Did not require urgent referral Impression Primary Impression: Lumbar back pain Scribe Attestation The scribe's documentation has been prepared under my direction and personally reviewed by me in its entirety. I confirm that the note above accurately reflects all work, treatment, procedures, and medical decision making performed by me. Departure Information Dispostion Home / Self-Care Prescriptions Hydrocodone/Acetaminophen ([place] 10/325 Tab) 1 Tab Tab 1 TAB PO Q6H Y for Pain, #20 TAB Prov: Aramis Williamson M.D. 06/08/17 Referrals Primary Care Provider Patient Instructions ED Low Back Pain Injury, My [facility] Additional Instructions You have received a narcotic pain medication prescription. These medications may cause drowsiness and should not be used with other sedative medications. Do not drive, drink alcohol, perform dangerous activities, nor make important decisions after taking these medications. penitentiary use or inappropriate use may lead to addiction. You must follow up with your Primary Provider, Back Specialists or Pain management for further pain control. Return immediately if leg weakness, loss of bowel/bladder control or other concerns. Problem Qualifiers Primary Impression: Lumbar back pain Chronicity: acute Back pain laterality: bilateral Sciatica presence: without sciatica Qualified Codes: M54.5 - Low back pain
[2017-06-08 15:31] VITALS: BP 103/63; PULSE 63; O2SAT 97
== END 2017-06-08 15:34 | disposition home or self-care (01) ==
LOC: C.EDB 14:53 → C.EDA 15:34
DX: M54.5 Low back pain (principal); J45.909 Unspecified asthma, uncomplicated; J44.9 Chronic obstructive pulmonary disease, unspecified; I11.9 Hypertensive heart disease without heart failure; Z83.3 Family history of diabetes mellitus; F17.210 Nicotine dependence, cigarettes, uncomplicated; Z79.52 Long term (current) use of systemic steroids

== ENCOUNTER 2017-06-30 20:59 | Emergency (ER) | payer OTHER ==
[~2017-06-30] VITALS: Ht 170.2 cm; Wt 63.1 kg
[~2017-06-30 20:59] MED LIST changes: +HYDR-4383 PO; -OXYC1TAB3 PO
[2017-06-30 21:07] VITALS: BP 118/78; PULSE 65; TEMP 36.7; O2SAT 95; Ht 170.2 cm; Wt 63.1 kg
[2017-06-30] MEDS ORDERED: VNTHFA/IN INH (21:25)
[2017-06-30] MEDS ORDERED: ACET-1256 PO (21:25)
[2017-06-30] MEDS ORDERED: OXYCODONE IR HOME PACK PO STA (21:43)
[2017-06-30] MEDS ORDERED: FLEXERIL HOME PACK 10 MG VIAL PO STA (21:43)
[2017-06-30] MEDS ORDERED: OXYC1TAB3 PO (21:45)
--- NOTE | 2017-06-30 21:46 | EMERGENCY ROOM VISIT NOTE ---
History First contact with patient: 21:27 Chief Complaint: GROIN PAIN Stated Complaint: STRETCHED GROIN History of Present Illness The patient is a 51 year old male who presents to the Emergency Room via private vehicle with complaints of "stretch groin". The patient states that earlier today he was exiting his truck, when he stepped down and his foot started to slip causing him to do essentially a split. He states that since then he has had pain in the groin region. He points to the space between the scrotum and the thigh as a location of pain on the bilateral legs that he rates as an 8/10. He states it's worse with movement or standing. Pain is better with sitting. He denies any abdominal pain, testicular or penile pain. He has urinated since the event without difficulty. No blood. Review of Systems A complete 6-point Review of Systems was discussed with the patient, with pertinent positives and negatives listed in the History of Present Illness. All remaining Review of Systems questions can be considered negative unless otherwise specified. Past Medical/Surgical History Medical Problems: (1) Asthma (2) Back strain (3) Broken ribs (4) Chronic Obstructive Pulmonary Disease, Unspecified (5) Exacerbation of chronic back pain (6) Heart disease (7) Hypertension (8) Low back pain (9) Lower back pain (10) Lumbago (11) Lumbar contusion (12) Lumbar strain (13) Lumbar strain (14) Sacral contusion (15) Strain of shoulder, right (16) Tick bite Surgical Problems: (1) History of hernia repair Family History Diabetes mellitus Social History Smoking Status: Current Every Day Smoker Alcohol Use: occasionally Drug Use: none Marital Status: Housing Status: lives with significant other Occupation Status: unemployed Current/Historical Medications Scheduled PRN Acetaminophen (Tylenol), 1,000 MG PO Q6 PRN for Pain Albuterol Hfa (Ventolin Hfa), 2 PUFFS INH Q6H PRN for SOB/Wheezing Oxycodone Ir (Roxicodone Ir), 1-2 TAB PO Q4H PRN for Pain Physical Exam Vital Signs Date Time Temp Pulse Resp B/P (MAP) Pulse Ox O2 Delivery O2 Flow Rate FiO2 06/30/17 21:07 36.7 65 18 118/78 95 Room Air Physical Exam VITAL SIGNS - Vital signs and nursing notes were reviewed. Patient is afebrile , normotensive, non-tachycardic and saturating well on room air 95%. GENERAL -51-year-old male appearing older than his stated age who is in no acute distress. Communicates well with provider and answers questions appropriately. SKIN - Without rashes. No petechial rashes. The skin between the scrotum and the thighs unremarkable. The integument is intact. ABDOMEN - Abdominal contour without pulsations or visible masses. BS normoactive all four quadrants. No tenderness, palpable masses, hepatosplenomegaly, or ascites noted. EXTREMITIES - No clubbing or peripheral cyanosis. No pretibial edema present. The groin region is tender to palpation at the aspect of the thighs but not in the testicular or genital region. This is consistent with a groin strain. +5/ 5 strength noted in UE/LE bilaterally. Medical Decision & Procedures Medications Administered Medications (Trade) Dose Ordered Sig/Jf Route Start Time Stop Time Status Last Admin Dose Admin Cyclobenzaprine HCl (FLEXERIL 10MG Home Pack) 1 homepack UD STAT PO 06/30/17 21:43 06/30/17 21:46 DC 06/30/17 21:43 1 HOMEPACK Oxycodone HCl (Roxicodone Immediate Rel 5MG Home Pack) 1 homepack UD STAT PO 06/30/17 21:43 06/30/17 21:47 DC 06/30/17 21:43 1 HOMEPACK Medical Decision Patient was seen and evaluated as above. He presents to us today with groin pain. On examination it is been identified that there appears to be no emergent process, there is no abdominal pain, testicular or genital pain. The pain is at the medial and superior aspects of each thigh at the location of the groin. I suspect a strain/sprain of this region and believe that follow-up with a family doctor is appropriate. I do not suspect or palpate any rolled muscle or evidence of detachment. No evidence of scrotal involvement. He'll be given a short course of pain medication and a home pack for muscle relaxers. He is to return with worsening. He was educated upon worrisome symptoms which to return, had questions answered prior to discharge, and was discharged home in good condition. In evaluation treatment this patient following differential diagnoses were entertained: Strain, sprain, testicular disruption, penile disruption, among others. [place] Search Results: patient reviewed within database, no issues identified Impression Primary Impression: Strain of groin Departure Information Dispostion Home / Self-Care Condition GOOD Prescriptions Oxycodone Ir (Roxicodone Ir) 5 Mg Tab 1-2 TAB PO Q4H Y for Pain, #15 TAB For Initial Treatment Prov: Benton Rodas PA-C 06/30/17 Referrals No Doctor, Assigned (PCP) Patient Instructions My [facility] Additional Instructions You have been treated in the Emergency Department for groin pain. You have received pain medicine in the emergency department which impairs your ability to operate a vehicle. It is illegal for you to drive after receiving these medicines. You have been prescribed Oxy IR to be used for pain control. This is a narcotic medication. You cannot drive or consume alcohol while on this medicine. This medicine should only be used for pain that cannot be controlled with over-the- counter pain medicines. If this is a recent injury (<24 hrs), ice can be applied to the area of pain for the first 3 days to help decrease pain and inflammation. Ice massages can be performed by freezing water in a paper cup, peeling back the cup to expose the ice and then massaging over the affected area. Please call your family doctor to schedule follow-up as soon as possible. Be cautious with your movements until resolution of your pain. Return to the Emergency Department if your current symptoms worsen despite treatment course outlined above.
== END 2017-06-30 21:55 | disposition home or self-care (01) ==
LOC: C.EDB 21:00 → C.EDD 21:55
DX: S76.219A Strain of adductor muscle, fascia and tendon of unspecified thigh, initial encounter (principal); X58.XXXA Exposure to other specified factors, initial encounter; J45.909 Unspecified asthma, uncomplicated; J44.9 Chronic obstructive pulmonary disease, unspecified; I51.9 Heart disease, unspecified; I10 Essential (primary) hypertension; Z83.3 Family history of diabetes mellitus; F17.200 Nicotine dependence, unspecified, uncomplicated

== ENCOUNTER 2017-07-24 12:39 | Emergency (ER) | payer OTHER ==
[~2017-07-24] VITALS: Ht 170.2 cm; Wt 60.3 kg
[~2017-07-24 12:39] MED LIST changes: +ACET-1256 PO; -HYDR-4383 PO; +OXYC1TAB3 PO; +VNTHFA/IN INH
[2017-07-24 12:53] VITALS: TEMP 36.6; Ht 170.2 cm; Wt 60.3 kg
[2017-07-24] MEDS ORDERED: METHYLPREDNISOLONE 125 MG VIAL IV STA (13:11)
[2017-07-24] MEDS ORDERED: ALBUT/IPRATROP 3MG/0.5MG NEB 3 ML VIAL INH ONE (13:15)
[2017-07-24 13:51] LABS: BASO % 0.4 %; BASO ABS # 0.04 K/uL (0-0.2); COMPLETE YES; EOS % 0.9 %; HEMATOCRIT 47.2 % (42-52); IG% 0.2 %; LYMPH % 19.9 %; LYMPH ABS # 2.03 K/uL (1.2-3.4); MEAN CELL VOLUME 90.6 fL (80-100); MEAN CORPUSCULAR HEMOGLOBIN 31.7 pg (25-34); MEAN PLATELET VOLUME 10.5 fL (7.4-10.4); MONO % 6.9 %; NEUT % 71.7 %; PLATELET COUNT 334 K/uL (130-400); RED BLOOD COUNT 5.21 M/uL (4.7-6.1)
--- NOTE | 2017-07-24 13:52 | DIAGNOSTIC IMAGING REPORT ---
CHEST 2 VIEWS ROUTINE CLINICAL HISTORY: SOB, cough dyspnea COMPARISON STUDY: No previous studies for comparison. FINDINGS: Mild emphysematous change. No acute infiltrate. Also old right-sided rib fractures. IMPRESSION: Emphysematous change. No acute infiltrate. The above report was generated using voice recognition software. It may contain grammatical, syntax or spelling errors. Electronically signed by: Tim Leroy M.D. 07/24/2017 1:50 PM Dictated Date/Time: 07/24/2017 1:50 PM
[2017-07-24 14:09] LABS: ALT/SGPT 19 U/L (12-78); AST/SGOT 18 U/L (15-37); BLOOD UREA NITROGEN 12 mg/dl (7-18); BUN/CREATININE RATIO 14.3 (10-20); CALCIUM 9.5 mg/dl (8.5-10.1); CARBON DIOXIDE 28 mmol/L (21-32); CHLORIDE 105 mmol/L (98-107); CREATININE 0.81 mg/dl (0.60-1.40); GLUCOSE 111 mg/dl (70-99); SODIUM 141 mmol/L (136-145)
[2017-07-24 14:13] LABS: ALB/GLOB RATIO 1.1 (0.9-2); ALKALINE PHOSPHATASE 75 U/L (45-117)
[2017-07-24] MEDS ORDERED: PRED50TA PO (14:28)
[2017-07-24 14:41] VITALS: BP 144/74; PULSE 76; O2SAT 96
--- NOTE | 2017-07-24 15:42 | EMERGENCY ROOM VISIT NOTE ---
History First contact with patient: 13:06 Chief Complaint: SHORTNESS OF BREATH Stated Complaint: CANT BREATHE RIGHT Nursing Triage Summary: Patient reports cough for a week with increasing shortness of breath that is worsening over the past few days History of Present Illness The patient is a 51 year old male who presents to the Emergency Room with complaints of persistent cough over the past week. The patient states that he has not had fever or chills. He does not have distinct chest pain. He states that activity worsens his cough. The patient is a chronic tobacco user, smoking greater than one pack per day. He is not having lightheadedness, dizziness, abdominal pain, or dyspnea on exertion. His cough does make him short of breath. No recent travel history. He rates his discomfort a 9/10. Review of Systems More than 10 systems were reviewed and otherwise negative with the exception of history of present illness. Past Medical/Surgical History Medical Problems: (1) Asthma (2) Back strain (3) Broken ribs (4) Chronic Obstructive Pulmonary Disease, Unspecified (5) Exacerbation of chronic back pain (6) Heart disease (7) Hypertension (8) Low back pain (9) Lower back pain (10) Lumbago (11) Lumbar contusion (12) Lumbar strain (13) Lumbar strain (14) Sacral contusion (15) Strain of shoulder, right (16) Tick bite Surgical Problems: (1) History of hernia repair Family History Diabetes mellitus Social History Smoking Status: Current Every Day Smoker Alcohol Use: occasionally Drug Use: none Marital Status: Housing Status: lives with significant other Occupation Status: unemployed Current/Historical Medications Scheduled Prednisone (Prednisone), 1 TAB PO DAILY Scheduled PRN Acetaminophen (Tylenol), 1,000 MG PO Q6 PRN for Pain Albuterol Hfa (Ventolin Hfa), 2 PUFFS INH Q6H PRN for SOB/Wheezing Physical Exam Vital Signs Date Time Temp Pulse Resp B/P (MAP) Pulse Ox O2 Delivery O2 Flow Rate FiO2 07/24/17 14:41 76 20 144/74 96 Room Air 07/24/17 14:40 79 20 144/71 97 07/24/17 13:15 98 Room Air 07/24/17 12:53 36.6 72 22 105/70 97 Room Air Pain Rating (0-10): 4.0 Physical Exam VITALS: Vitals are noted on the nurse's note and reviewed by myself. Vital signs stable. GENERAL: Well-developed, well-nourished, white male, who is in no acute distress and resting comfortably. Patient is cooperative with the examination. NECK: Supple without nuchal rigidity. No lymphadenopathy. No thyromegaly. Cervical spine is nontender. HEART: Regular rate and rhythm without murmurs gallops or rubs. LUNGS: Distant and coarse breath sounds bilateral without distinct wheezing, rhonchi, or crackles. ABDOMEN: Positive normal bowel sounds x 4. Soft, nontender, without masses or organomegaly. No guarding or rebound tenderness. MUSCULOSKELETAL: No muscle atrophy, erythema, or edema noted. Full range of motion without joint tenderness in all extremities. Medical Decision & Procedures ER Provider Diagnostic Interpretation: CHEST 2 VIEWS ROUTINE CLINICAL HISTORY: SOB, cough dyspnea COMPARISON STUDY: No previous studies for comparison. FINDINGS: Mild emphysematous change. No acute infiltrate. Also old right-sided rib fractures. IMPRESSION: Emphysematous change. No acute infiltrate. Laboratory Results 07/24/17 13:25 Red Blood Count 5.21, Mean Corpuscular Volume 90.6, Mean Corpuscular Hemoglobin 31.7, Mean Corpuscular Hemoglobin Concent 35.0, Mean Platelet Volume 10.5, Neutrophils (%) (Auto) 71.7, Lymphocytes (%) (Auto) 19.9, Monocytes (%) (Auto) 6.9, Eosinophils (%) (Auto) 0.9, Basophils (%) (Auto) 0.4, Neutrophils # (Auto) 7.32, Lymphocytes # (Auto) 2.03, Monocytes # (Auto) 0.70, Eosinophils # (Auto) 0.09, Basophils # (Auto) 0.04 07/24/17 13:25 Test 07/24/17 13:25 White Blood Count 10.20 K/uL (4.8-10.8) Red Blood Count 5.21 M/uL (4.7-6.1) Hemoglobin 16.5 g/dL (14.0-18.0) Hematocrit 47.2 % (42-52) Mean Corpuscular Volume 90.6 fL (80-100) Mean Corpuscular Hemoglobin 31.7 pg (25-34) Mean Corpuscular Hemoglobin Concent 35.0 g/dl (32-36) Platelet Count 334 K/uL (130-400) Mean Platelet Volume 10.5 fL (7.4-10.4) Neutrophils (%) (Auto) 71.7 % Lymphocytes (%) (Auto) 19.9 % Monocytes (%) (Auto) 6.9 % Eosinophils (%) (Auto) 0.9 % Basophils (%) (Auto) 0.4 % Neutrophils # (Auto) 7.32 K/uL (1.4-6.5) Lymphocytes # (Auto) 2.03 K/uL (1.2-3.4) Monocytes # (Auto) 0.70 K/uL (0.11-0.59) Eosinophils # (Auto) 0.09 K/uL (0-0.5) Basophils # (Auto) 0.04 K/uL (0-0.2) RDW Standard Deviation 44.5 fL (36.4-46.3) RDW Coefficient of Variation 13.4 % (11.5-14.5) Immature Granulocyte % (Auto) 0.2 % Immature Granulocyte # (Auto) 0.02 K/uL (0.00-0.02) Anion Gap 8.0 mmol/L (3-11) Est Creatinine Clear Calc Drug Dose 93.1 ml/min Estimated GFR () 120.1 Estimated GFR (Non- 103.6 BUN/Creatinine Ratio 14.3 (10-20) Calcium Level 9.5 mg/dl (8.5-10.1) Total Bilirubin 0.9 mg/dl (0.2-1) Aspartate Amino Transf (AST/SGOT) 18 U/L (15-37) Alanine Aminotransferase (ALT/SGPT) 19 U/L (12-78) Alkaline Phosphatase 75 U/L (45-117) Troponin I < 0.015 ng/ml (0-0.045) Total Protein 8.1 gm/dl (6.4-8.2) Albumin 4.2 gm/dl (3.4-5.0) Globulin 3.9 gm/dl (2.5-4.0) Albumin/Globulin Ratio 1.1 (0.9-2) Lipase 112 U/L (73-393) Medications Administered Medications (Trade) Dose Ordered Sig/Jf Route Start Time Stop Time Status Last Admin Dose Admin Methylprednisolone Sodium Succinate (Solu-Medrol IV) 125 mg NOW STAT IV 07/24/17 13:11 07/24/17 13:16 DC 07/24/17 13:53 125 MG Albuterol/ Ipratropium (Duoneb) 3 ml NOW ONCE INH 07/24/17 13:15 07/24/17 13:16 DC 07/24/17 13:53 3 ML ECG Change: Sinus bradycardia with short AK @50bpm Otherwise normal ECG No previous ECGs available Confirmed by ZION MCCLOUD ([id number]) on 07/24/2017 2:56:27 PM ED Course Physical exam and history were performed. Nursing notes, EMR, and Medication List were personally reviewed. Patient appears to have persistent symptoms for the past week. Patient is a significant tobacco user and his breath sounds are distant on exam. IV access was established and labs were obtained. EKG was sinus bradycardia without acute ST elevation or ischemia. Chest x-ray was performed. The patient was treated with Solu-Medrol here in the department and given a DuoNeb treatment. He was placed on a awake overnight monitor. The patient's blood work is as above and was reviewed. He does not have a significantly elevated white blood cell count, gross anemia, bandemia, or significant electrolyte imbalance. Troponin 1 is negative. Chest x-ray shows emphysematous changes but no acute infiltrate. Overall the patient appears well for discharge home. I suspect his symptoms are related to a bronchitis or possible COPD exacerbation, although the patient does not have this diagnosis at this time. The patient will be given a course of steroids and instructed to follow with his primary care physician none short interval for a recheck. He was certainly invited back to the emergency department with any new, worsening, or concerning symptoms. The chart was completed utilizing [employer] Speech Voice Recognition Software. Grammatical errors, random word insertions, pronoun errors, and incomplete sentences are an occasional consequence of this system due to software limitations, ambient noise, and hardware issues. Any formal questions or concerns about the content, text, or information contained within the body of this dictation should be directly addressed to the provider for clarification. . Medical Decision Differential diagnosis: Etiologies such as infections, reactive airway disease, pneumonia, pneumothorax , COPD, CHF, cardiac ischemia, pulmonary embolism, musculoskeletal, gastrointestinal, as well as others were entertained. Medication Reconcilliation Current Medication List: was personally reviewed by me Blood Pressure Screening Blood pressure disposition: Did not require urgent referral Impression Primary Impression: Acute bronchitis Departure Information Dispostion Home / Self-Care Condition GOOD Prescriptions Prednisone (Prednisone) 50 Mg Tab 1 TAB PO DAILY for 5 Days, #5 TAB Prov: Marcello Smith PA-C 07/24/17 Referrals No Doctor, Assigned (PCP) Forms HOME CARE DOCUMENTATION FORM, IMPORTANT VISIT INFORMATION Patient Instructions My [facility], ED Smoking Cessation Additional Instructions You were seen and evaluated today on an emergency basis only. This is not a substitute for, or an effort to provide, complete comprehensive medical care. It is not possible to recognize and treat all injuries or illnesses in a single emergency department visit. For this reason it is recommended that you followup with your primary care physician this week for ongoing care and evaluation. Take prednisone 50 mg daily for the next 5 days. You are welcome to return to the emergency department anytime with new, worsening, or concerning symptoms.
== END 2017-07-24 14:40 | disposition home or self-care (01) ==
LOC: C.EDB 12:41 → C.EDC 14:40
DX: J20.9 Acute bronchitis, unspecified (principal); J44.9 Chronic obstructive pulmonary disease, unspecified; R06.02 Shortness of breath; I51.9 Heart disease, unspecified; I10 Essential (primary) hypertension; F17.200 Nicotine dependence, unspecified, uncomplicated

== ENCOUNTER 2017-09-17 12:17 | Emergency (ER) | payer OTHER ==
[~2017-09-17] VITALS: Ht 170.2 cm; Wt 62.1 kg
[~2017-09-17 12:17] MED LIST changes: -OXYC1TAB3 PO
[2017-09-17 12:22] VITALS: TEMP 36.6; Ht 170.2 cm; Wt 62.1 kg
--- NOTE | 2017-09-17 12:53 | DIAGNOSTIC IMAGING REPORT ---
L SHOULDER MIN 2 VIEWS ROUTINE HISTORY: 51 years-old Male L shoulder pain acute left-sided shoulder pain status post lifting injury COMPARISON: Chest radiograph 07/25/2017 TECHNIQUE: 3 views of the left shoulder FINDINGS: Mild glenohumeral and acromioclavicular degenerative changes without acute fracture or dislocation. Soft tissues and imaged lung mosqueda are unremarkable. IMPRESSION: Mild degenerative changes without acute fracture or dislocation. The above report was generated using voice recognition software. It may contain grammatical, syntax or spelling errors. Electronically signed by: Santy Goldsmith M.D. 09/17/2017 12:52 PM Dictated Date/Time: 09/17/2017 12:51 PM
[2017-09-17] MEDS ORDERED: IBUPROFEN 600 MG TAB PO STA (13:10)
[2017-09-17] MEDS ORDERED: TRAMADOL HCL 50 MG TAB PO STA (13:10)
[2017-09-17] MEDS ORDERED: TRAM-10 PO (13:12)
[2017-09-17 13:27] VITALS: BP 134/83; PULSE 65; O2SAT 96
--- NOTE | 2017-09-17 16:39 | EMERGENCY ROOM VISIT NOTE ---
History First contact with patient: 12:29 Chief Complaint: SHOULDER PAIN Stated Complaint: POPPED LT SHOULDER WHILE LIFTING History of Present Illness The patient is a 51 year old male who presents to the Emergency Room with complaints of shoulder pain that he injured while moving a heavy cabinet this morning around 9:30 AM. The patient reports that he was helping a friend unload this cabinet when his friend dropped the cabinet, jarring his left shoulder. The patient reports persistent pain rated an 8 out of 10. He denies any history of left shoulder injuries, but does report a prior history of right shoulder injury. He currently denies any pain extending into the neck, and also denies any paresthesias or numbness of the left hand or fingers. Range of motion worsens his pain. The patient is [id number]. Review of Systems 10 system review was performed and was negative except for pertinent positives and negatives as indicated in history of present illness Past Medical/Surgical History Medical Problems: (1) Asthma (2) Back strain (3) Broken ribs (4) Chronic Obstructive Pulmonary Disease, Unspecified (5) Exacerbation of chronic back pain (6) Heart disease (7) Hypertension (8) Low back pain (9) Lower back pain (10) Lumbago (11) Lumbar contusion (12) Lumbar strain (13) Lumbar strain (14) Sacral contusion (15) Strain of shoulder, right (16) Tick bite Surgical Problems: (1) History of hernia repair Family History Diabetes mellitus Social History Smoking Status: Current Every Day Smoker Alcohol Use: occasionally Drug Use: none Marital Status: Housing Status: lives with significant other Occupation Status: unemployed Current/Historical Medications Scheduled PRN Tramadol (Ultram), 1-2 TAB PO Q4H PRN for Pain Allergies Coded Allergies: No Known Allergies (Unverified , 09/17/17) Physical Exam Vital Signs Date Time Temp Pulse Resp B/P (MAP) Pulse Ox O2 Delivery O2 Flow Rate FiO2 09/17/17 13:27 65 18 134/83 96 09/17/17 12:22 36.6 81 20 126/86 97 Room Air Physical Exam CONSTITUTIONAL: Healthy and well nourished. Alert and oriented X 3 with positive affect. HEENT: Normocephalic, atraumatic. Pupils equal, round and reactive. NECK: Full active range of motion without discomfort. MUSCULOSKELETAL: Examination of the left shoulder was limited secondary to discomfort. He has limited range of motion. Mild tenderness to palpation of the distal clavicle and acromioclavicular joint. Gentle internal next and rotation is not suggestive of dislocation. He has no tenderness to palpation through the biceps muscle or antecubital space. No ecchymosis noted. Patient refused range of motion of the shoulder. INTEGUMENTARY: No rash or other significant dermatologic conditions noted. NEUROLOGIC: No focal neurologic deficits noted. Left deltoid sensation is intact. Medical Decision & Procedures ER Provider Diagnostic Interpretation: My interpretation of left shoulder x-rays does not show any obvious fractures or dislocation. Radiologist report is as follows: Medications Administered Medications (Trade) Dose Ordered Sig/Jf Route Start Time Stop Time Status Last Admin Dose Admin Ibuprofen (Motrin Tab) 600 mg NOW STAT PO 09/17/17 13:10 09/17/17 13:11 DC 09/17/17 13:18 600 MG Tramadol HCl (Ultram Tab) 50 mg NOW STAT PO 09/17/17 13:10 09/17/17 13:11 DC 09/17/17 13:19 50 MG ED Course Patient history and physical exam were performed. Nurse's notes were reviewed. Vital signs were reviewed and were normal. The patient was sent to x-ray prior to my exam, with x-ray findings showing mild degenerative changes without signs of fracture or dislocation. The patient was advised of his normal x-ray findings. He was encouraged to intermittently apply ice to the shoulder. Ibuprofen and Tylenol in alternating fashion as needed for baseline pain relief. The patient was provided a prescription for Ultram as needed for breakthrough pain. He was administered ibuprofen and Ultram prior to discharge , was happy with plan of care, and rated his discomfort a 7 out of 10 right after medications. I did encourage the patient to follow-up with orthopedics for further reevaluation and management. He was also instructed to contact his PCP as he will likely need a referral with his insurance. Medical Decision Impression Primary Impression: Left shoulder strain Departure Information Dispostion Home / Self-Care Condition GOOD Prescriptions Tramadol (Ultram) 50 Mg Tab 1-2 TAB PO Q4H Y for Pain, #20 TAB For Initial Treatment Prov: Toribio James PA 09/17/17 Forms HOME CARE DOCUMENTATION FORM, IMPORTANT VISIT INFORMATION Patient Instructions My [facility] Additional Instructions Intermittently apply ice to shoulder for swelling and pain. Perform range of motion exercises to prevent stiffness. Ibuprofen 800 mg and/or Tylenol 1000 mg every 8 hours. You may also alternate these medications for more effective pain relief: Ibuprofen --4 HRS--> Tylenol --4 HRS--> ibuprofen --4 HRS--> Tylenol .... Ultram if needed for worse pain. Follow-up with your family doctor or orthopedics for further reevaluation and management. You will likely need a referral from your family doctor to see an orthopedic surgeon. Problem Qualifiers Primary Impression: Left shoulder strain Encounter type: initial encounter Qualified Codes: S46.912A - Strain of unspecified muscle, fascia and tendon at shoulder and upper arm level, left arm , initial encounter
== END 2017-09-17 13:20 | disposition home or self-care (01) ==
LOC: C.EDB 12:18 → C.EDD 13:20
DX: S46.912A Strain of unspecified muscle, fascia and tendon at shoulder and upper arm level, left arm, initial encounter (principal); X50.0XXA Overexertion from strenuous movement or load, initial encounter; J45.909 Unspecified asthma, uncomplicated; J44.9 Chronic obstructive pulmonary disease, unspecified; M54.5 Low back pain; G89.29 Other chronic pain; I10 Essential (primary) hypertension; F17.200 Nicotine dependence, unspecified, uncomplicated; Z83.3 Family history of diabetes mellitus

== ENCOUNTER 2024-08-15 09:08 | Inpatient (IN) ==
[2024-08-15] MEDS: methylPREDNISolone 125 MG/2 ML VIAL IV STA (09:15)
--- NOTE | 2024-08-15 09:20 | Emergency Department Note ---
Impression & Plan Respiratory distress, Respiratory acidosis, COPD exacerbation, Leukocytosis, Rhinovirus infection, Elevated troponin ED Provider Note NAME: DALLIN MOISE AGE: 58 SEX: M : 1965 ARRIVES VIA: Ambulance INFORMANT: [Patient][ems, nursing] ED PROVIDER(S): [Chris Arce MD] CHIEF COMPLAINT: Shortness of breath HISTORY OF PRESENT ILLNESS: The patient is a 58-year-old male who presents to the ER by ambulance. He is short of breath and has been so for 2 days. His cough is sometimes productive. The patient does have a nebulizer and albuterol inhaler at home, this really has not helped. The patient has not had fever. He states that he does have COPD. As per EMS, his O2 saturation was in the upper 80s, he was given a DuoNeb in route which really has not helped significantly. The patient denies any obvious sick contacts. PMHx/PSHx/Social Hx: See Below PHYSICAL EXAM: GENERAL: Patient is in significant respiratory distress. HEENT: No acute trauma, normocephalic atraumatic, mucous membranes moist, no nasal congestion. NECK: No stridor, no adenopathy, no meningismus, trachea is midline. LUNGS: Accessory muscle usage noted. Wheezing bilaterally with markedly diminished breath sounds bilaterally. Significant respiratory distress noted. HEART: Cannot be heard because of overriding lung sounds. ABDOMEN: Soft, nontender, no peritonitis. EXTREMITIES: No cyanosis, full range of motion of all the joints without pain or difficulty. NEUROLOGIC: Oriented x 3, no acute motor or sensory deficits, no focal weakness. SKIN: No jaundice, mild diaphoresis. DIFFERENTIAL DIAGNOSIS: Pneumothorax, exacerbation of COPD, CHF, pneumonia, viral illness, VA, among others. EMERGENCY DEPARTMENT PROCEDURES: MEDICAL DECISION MAKING: There is a significant leukocytosis at 22,000. This could be consistent with infection or the stress of his situation. There is a normal hemoglobin and platelet count. VBG does show a respiratory acidosis with a pH of 7.27. There was no renal failure or significant electrolyte abnormality. No concerning liver enzyme elevation. BNP was not elevated making CHF less likely. Lactic acid level is not elevated making severe sepsis less likely. ECG shows baseline artifact but no obvious acute ST elevation. Cardiac enzyme testing x 1 is slightly elevated. This troponin elevation is potentially from cardiac injury or more so mismatch given his hypoxia. Respiratory bio fire was positive for rhinovirus. Chest x-ray did not show pneumonia, CHF or pneumothorax. On exam, the patient was quite dyspneic and in respiratory distress. He had minimal air movement. Patient was aggressively and rapidly managed. He was given a 1 hour DuoNeb, he was placed on BiPAP. He received IV ceftriaxone and IV Solu-Medrol. With the above measures, the patient has made significant improvement. He looks much more comfortable and is breathing easier. His breath sounds are more full. The patient is in need of a hospital stay. He appears to have rhinovirus which has caused an exacerbation of his COPD. Admission is warranted. I spoke with the patient and case management. The on-call hospitalist was consulted. Prior/Outside records/notes reviewed: Today's EMS notes describing his presentation and transport to this hospital. ECG per my interpretation: Indication was shortness of breath. The ECG shows a normal sinus rhythm with a rate of 99. There is significant baseline artifact. There is potential old septal infarct. There is no obvious ST elevation. No PVCs. The QTc is 400. Continuous Cardiac Monitoring per my interpretation: An order was placed for continuous cardiac monitoring. The monitor shows a rate of 89 with normal sinus rhythm. Imaging/x-ray results per my interpretation: Chest x-ray shows findings of COPD. I see no pneumonia or pneumothorax. Chronic Medical/Social conditions affecting care: History of COPD. Care/Management discussed with: Case management, the on-call hospitalist. Level of care consideration(s): After review of the information above and other included data: --I feel the patient can be managed safely as an outpatient Critical Care Note: I have personally spent 49 minutes of critical care time in the direct management of this patient. This includes bedside care, interpretation of diagnostic studies, and testing, discussion with consultants, patient, and family members, and other required patient management activities. This 49 minutes is in excess of all separately billable procedures. DISPOSITION: Discharged Past Med/Surg History Problem List (Updated 08/15/24 @ 11:11 by Chris Arce MD) Elevated troponin (Acute) Rhinovirus infection (Acute) Leukocytosis (Acute) COPD exacerbation (Acute) Respiratory acidosis (Acute) Respiratory distress (Acute) Acute hypoxic respiratory failure Abnormal CT of the abdomen Abdominal pain (Acute) Colonic diverticular abscess (Acute) Sepsis (Acute) Sigmoid diverticulitis (Acute) Medical History HLD (hyperlipidemia) GERD (gastroesophageal reflux disease) Tobacco use disorder Chronic obstructive pulmonary disease, unspecified Low back pain Surgical History H/O inguinal hernia repair Family History Other Diabetes Diverticulitis large intestine Heart disease Social History Smoking Status: Current every day smoker Tobacco Type: Cigarettes packs per day: 1.5; Second Hand Exposure: Yes; Do You Dip or Chew Tobacco: No; Hx Alcohol Use: Yes Alcohol type: hard liquor Alcohol Intake Frequency: 2-4 x/Month Hx Substance Use: No Preferred Language: Moroccan Communication Ability: Effective Platform Supervisor Required: No Beliefs That Will Affect Care: None Current Living Situation: Spouse Feels Safe at Home: Yes Assistive Devices: None Allergies Allergies Allergy/AdvReac Type Severity Reaction Status Date / Time No Known Allergies Allergy Verified 06/27/24 13:11 Home Meds Home Medications Medication Instructions Recorded Confirmed gabapentin 300 mg capsule 300 mg PO TID 06/09/21 08/15/24 albuterol sulfate 2.5 mg/3 mL 2.5 mg inhalation QID PRN Wheezing 03/05/24 08/15/24 (0.083 %) solution for nebulization albuterol sulfate 90 mcg/actuation 2 puff inhalation Q4H PRN Dyspnea 03/05/24 08/15/24 aerosol inhaler fluticasone fur. 200 mcg-umeclid 1 inh inhalation DAILY 03/05/24 08/15/24 62.5 mcg-vilant 25 mcg inhalat.powder (Trelegy Ellipta) omeprazole 20 mg capsule,delayed 40 mg PO QAM 03/05/24 08/15/24 release rosuvastatin 10 mg tablet 10 mg PO DAILY 03/05/24 08/15/24 loratadine 10 mg tablet (Claritin) 10 mg PO DAILY PRN allergies 06/27/24 08/15/24 Results & Data (ED) Vital Signs Vital Signs - 24 hr 08/15/24 09:09 08/15/24 09:09 08/15/24 09:30 Temperature 37.3 C Temperature Source Oral Pulse Rate 100 H Pulse Rate [Right Finger] 106 H Respiratory Rate 26 H 23 Respiratory Effort / Characteristics Accessory Muscle Use Grunting Labored Non-Labored Spontaneous Respiratory Depth Deep Respiratory Pattern Grunting Blood Pressure 121/90 Blood Pressure Mean 100 Pulse Oximetry 88 L 88 L 98 Oxygen Delivery Method Room Air Room Air BiPAP Fraction of Inspired Oxygen 21 Sepsis Recent Fever Within 48 Hours No Sepsis New/Unexplained Change in Mental Status No Sepsis Action Taken by Nursing No Action Required Fraction of Inspired Oxygen - Titration 50 Pulse Oximetry Post Tiitration 87 L 08/15/24 09:30 Temperature Temperature Source Pulse Rate 106 H Pulse Rate [Right Finger] Respiratory Rate 23 Respiratory Effort / Characteristics Spontaneous Respiratory Depth Respiratory Pattern Regular Blood Pressure Blood Pressure Mean Pulse Oximetry 97 Oxygen Delivery Method Fraction of Inspired Oxygen 21 Sepsis Recent Fever Within 48 Hours Sepsis New/Unexplained Change in Mental Status Sepsis Action Taken by Nursing Fraction of Inspired Oxygen - Titration Pulse Oximetry Post Tiitration Home Medications Current Medication List: was personally reviewed by me Laboratory Data Attestation: I reviewed the patient's lab results. 08/15/24 09:12 08/15/24 09:12 Lab Results 08/15/24 08/15/24 08/15/24 Range/Units 09:11 09:12 09:38 WBC 22.77 H (4.8-10.8) K/ul RBC 5.14 (4.70-6.10) M/uL Hgb 15.9 (14.0-18.0) g/dl Hct 47.5 (42.0-52.0) % MCV 92.4 (80.0-100.0) fL MCH 30.9 (25.0-34.0) pg MCHC 33.5 (32.0-36.0) g/dL RDW Std Deviation 47.2 H (36.4-46.3) fL RDW Coeff of Mirtha 13.8 (11.5-14.5) % Plt Count 319 (130-400) K/uL MPV 10.3 (9.4-12.4) fL Immature Gran % (Auto) 0.6 % Neut % (Auto) 80.1 % Lymph % (Auto) 12.9 % Briscoe % (Auto) 6.0 % Eos % (Auto) 0.2 % Baso % (Auto) 0.2 % Neut # (Auto) 18.26 H (1.40-6.50) K/uL Lymph # (Auto) 2.93 (1.20-3.40) K/uL [place]iscoe # (Auto) 1.36 H (0.11-0.59) K/uL Eos # (Auto) 0.05 (0.00-0.50) K/uL Baso # (Auto) 0.04 (0.00-0.20) K/uL Immature Gran # (Auto) 0.13 (0.01-0.20) K/uL PT Cancelled INR Cancelled APTT Cancelled PTT Ratio Cancelled VBG pH 7.27 L (7.36-7.41) VBG pCO2 71 H (38-50) mmHg VBG pO2 50 mmHg VBG HCO3 33 mmol/L VBG O2 Saturation 79.4 % VBG Base Excess 3.5 mEq/L Sodium 141 (136-145) mmol/L Potassium 3.8 (3.5-5.1) mmol/L Chloride 101 (98-107) mmol/L Carbon Dioxide 31 (21-32) mmol/L Anion Gap 9 (3-11) BUN 17 (6-23) mg/dl Creatinine 0.77 (0.6-1.4) mg/dl Est Cr Clr Drug Dosing 102.4 ml/min eGFR 104.42 BUN/Creatinine Ratio 22.1 H (10-20) Glucose 145 H (70-99(Fasting)) mg/dl Lactate (0.4-2.0) mmol/L Calcium 9.2 (8.6-10.3) mg/dl Magnesium 1.9 (1.7-2.4) mg/dl Total Bilirubin 1.0 (0.2-1.0) mg/dl AST 28 (13-39) U/L ALT 46 (7-52) U/L Alkaline Phosphatase 64 (34-104) U/L Troponin I High Sens 44.8 H (0-20) pg/ml B-Natriuretic Peptide 91 (0-100) pg/ml Total Protein 7.6 (6.0-8.3) gm/dl Albumin 4.8 (3.4-5.0) gm/dl Globulin 2.8 (2.5-4.0) gm/dl Albumin/Globulin Ratio 1.7 (0.9-2) Adenovirus (PCR) Not Detected (NotDetected) B. pertussis DNA (PCR) Not Detected (NotDetected) B.parapertussis DNA PCR Not Detected (NotDetected) C. pneumoniae DNA (PCR) Not Detected (NotDetected) Coronavirus OC43 (PCR) Not Detected (NotDetected) Coronavirus HKU1 (PCR) Not Detected (NotDetected) Coronavirus 229E (PCR) Not Detected (NotDetected) SARS-CoV-2 (PCR) Not Detected (NotDetected) Coronavirus NL63 (PCR) Not Detected (NotDetected) Human Metapneumovir PCR Not Detected (NotDetected) Influenza Type A (PCR) Not Detected (NotDetected) Influenza Type B (PCR) Not Detected (NotDetected) M. pneumoniae (PCR) Not Detected (NotDetected) Parainfluenza 1 (PCR) Not Detected (NotDetected) Parainfluenza 2 (PCR) Not Detected (NotDetected) Parainfluenza 3 (PCR) Not Detected (NotDetected) Parainfluenza 4 (PCR) Not Detected (NotDetected) RSV (PCR) Not Detected (NotDetected) Entero/Rhino (PCR) DETECTED A (NotDetected) 08/15/24 Range/Units 10:29 WBC (4.8-10.8) K/ul RBC (4.70-6.10) M/uL Hgb (14.0-18.0) g/dl Hct (42.0-52.0) % MCV (80.0-100.0) fL MCH (25.0-34.0) pg MCHC (32.0-36.0) g/dL RDW Std Deviation (36.4-46.3) fL RDW Coeff of Mirtha (11.5-14.5) % Plt Count (130-400) K/uL MPV (9.4-12.4) fL Immature Gran % (Auto) % Neut % (Auto) % Lymph % (Auto) % Briscoe % (Auto) % Eos % (Auto) % Baso % (Auto) % Neut # (Auto) (1.40-6.50) K/uL Lymph # (Auto) (1.20-3.40) K/uL [place]iscoe # (Auto) (0.11-0.59) K/uL Eos # (Auto) (0.00-0.50) K/uL Baso # (Auto) (0.00-0.20) K/uL Immature Gran # (Auto) (0.01-0.20) K/uL PT INR APTT PTT Ratio VBG pH (7.36-7.41) VBG pCO2 (38-50) mmHg VBG pO2 mmHg VBG HCO3 mmol/L VBG O2 Saturation % VBG Base Excess mEq/L Sodium (136-145) mmol/L Potassium (3.5-5.1) mmol/L Chloride (98-107) mmol/L Carbon Dioxide (21-32) mmol/L Anion Gap (3-11) BUN (6-23) mg/dl Creatinine (0.6-1.4) mg/dl Est Cr Clr Drug Dosing ml/min eGFR BUN/Creatinine Ratio (10-20) Glucose (70-99(Fasting)) mg/dl Lactate 1.5 (0.4-2.0) mmol/L Calcium (8.6-10.3) mg/dl Magnesium (1.7-2.4) mg/dl Total Bilirubin (0.2-1.0) mg/dl AST (13-39) U/L ALT (7-52) U/L Alkaline Phosphatase (34-104) U/L Troponin I High Sens (0-20) pg/ml B-Natriuretic Peptide (0-100) pg/ml Total Protein (6.0-8.3) gm/dl Albumin (3.4-5.0) gm/dl Globulin (2.5-4.0) gm/dl Albumin/Globulin Ratio (0.9-2) Adenovirus (PCR) (NotDetected) B. pertussis DNA (PCR) (NotDetected) B.parapertussis DNA PCR (NotDetected) C. pneumoniae DNA (PCR) (NotDetected) Coronavirus OC43 (PCR) (NotDetected) Coronavirus HKU1 (PCR) (NotDetected) Coronavirus 229E (PCR) (NotDetected) SARS-CoV-2 (PCR) (NotDetected) Coronavirus NL63 (PCR) (NotDetected) Human Metapneumovir PCR (NotDetected) Influenza Type A (PCR) (NotDetected) Influenza Type B (PCR) (NotDetected) M. pneumoniae (PCR) (NotDetected) Parainfluenza 1 (PCR) (NotDetected) Parainfluenza 2 (PCR) (NotDetected) Parainfluenza 3 (PCR) (NotDetected) Parainfluenza 4 (PCR) (NotDetected) RSV (PCR) (NotDetected) Entero/Rhino (PCR) (NotDetected) Administered Medications Discontinued Medications Albuterol (Albut/Ipratrop 3mg/0.5mg Neb 3 Ml Vial) 12 ml NEB ONE ONE; Protocol Stop: 08/15/24 09:13 Last Admin: 08/15/24 09:29 Dose: 12 ml Documented By: KATHIE Ceftriaxone Sodium (Rocephin) 2,000 mg in 50 mls @ 100 mls/hr IV NOW STA Stop: 08/15/24 10:43 Last Admin: 08/15/24 10:31 Dose: 100 mls/hr Documented By: KRISH Methylprednisolone (Methylprednisolone 125 Mg/2 Ml Vial) 125 mg IV NOW STA Stop: 08/15/24 09:13 Last Admin: 08/15/24 09:15 Dose: 125 mg Documented By: KRISH Imaging Data Radiologist's Impression: Chest X-Ray 08/15/24 09:13 SINGLE VIEW CHEST CLINICAL HISTORY: Dyspnea FINDINGS: 2 AP, portable, upright chest radiographs are compared to study dated 03/05/2024. The cardiomediastinal silhouette is unremarkable. Advanced emphysema and chronic interstitial thickening is similar to previous. Scarring/atelectasis is noted at the lung bases. No airspace consolidation or pleural effusion is identified. No pneumothorax is seen. The skeletal structures are osteopenic. The bony thorax is grossly intact. IMPRESSION: Advanced emphysema with no active disease in the chest. ACT 112: Negative or not required by law. Electronically signed by: Chris Soni M.D. 08/15/2024 9:30 AM Discharge Plan Visit Data Chief Complaint: Shortness of Breath/Dyspnea ED Provider: Chris Arce Discharge Problem: Respiratory distress, Respiratory acidosis, COPD exacerbation, Leukocytosis, Rhinovirus infection, Elevated troponin Patient Disposition: Admitted As Inpatient Condition: Serious Forms Stand Alone Forms: My [facility] Prescriptions Prescriptions: No Action gabapentin 300 mg capsule 300 mg PO TID loratadine [Claritin] 10 mg Tablet 10 mg PO DAILY PRN (Reason: allergies ) albuterol sulfate 2.5 mg /3 mL (0.083 %) solution for nebulization 2.5 mg inhalation QID PRN (Reason: Wheezing) omeprazole 20 mg capsule,delayed release(DR/EC) 40 mg PO QAM albuterol sulfate 90 mcg/actuation HFA aerosol inhaler 2 puff inhalation Q4H PRN (Reason: Dyspnea) rosuvastatin 10 mg tablet 10 mg PO DAILY Trelegy Ellipta 200-62.5-25 mcg blister with device 1 inh INHALATION DAILY Referrals Referrals: Octavio Miller MD [Primary Care Provider] - Discharge Problem: Leukocytosis Qualifiers: Leukocytosis type: unspecified Qualified Code(s): D72.829 - Elevated white blood cell count, unspecified
[2024-08-15] MEDS: ALBUT/IPRATROP 3MG/0.5MG NEB 3 ML VIAL NEB ONE (09:29)
--- NOTE | 2024-08-15 09:32 | XRay Report ---
SINGLE VIEW CHEST CLINICAL HISTORY: Dyspnea FINDINGS: 2 AP, portable, upright chest radiographs are compared to study dated 03/05/2024. The cardio mediastinal silhouette is unremarkable. Advanced emphysema and chronic interstitial thickening is sim ilar to previous. Scarring/atelectasis is noted at the lung bases. No airspace consolidation or pleur al effusion is identified. No pneumothorax is seen. The skeletal structures are osteopenic. The bony thorax is grossly intact. IMPRESSION: Advanced emphysema with no active disease in the chest. ACT 112: Negative or not required by law. Electronically signed by: Chris Soni M.D. 08/15/2024 9:30 AM
[2024-08-15 09:35] LABS: Base Excess VBG 3.5 mEq/L; HCO3 VBG 33 mmol/L; Oxygen Saturation VBG 79.4 %; PCO2 VBG 71 mmHg (38-50); PO2 VBG 50 mmHg; pH VBG 7.27 (7.36-7.41)
[2024-08-15 09:46] LABS: Basophils # (auto) 0.04 K/uL (0.00-0.20); Basophils % (auto) 0.2 %; Eosinophils # (auto) 0.05 K/uL (0.00-0.50); Eosinophils % (auto) 0.2 %; Hematocrit (blood only) 47.5 % (42.0-52.0); Hemoglobin 15.9 g/dl (14.0-18.0); Immature Granulocytes # (auto) 0.13 K/uL (0.01-0.20); Immature Granulocytes % (auto) 0.6 %; Lymphocytes # (auto) 2.93 K/uL (1.20-3.40); Lymphocytes % (auto) 12.9 %; Mean Corpuscular Hemoglobin 30.9 pg (25.0-34.0); Mean Corpuscular Hgb Conc 33.5 g/dL (32.0-36.0); Mean Corpuscular Volume 92.4 fL (80.0-100.0); Mean Platelet Volume 10.3 fL (9.4-12.4); Monocytes # (auto) 1.36 K/uL (0.11-0.59); Neutrophils # (auto) 18.26 K/uL (1.40-6.50); Neutrophils % (auto) 80.1 %; Platelet Count 319 K/uL (130-400); RDW Coefficient of Variation 13.8 % (11.5-14.5); RDW Standard Deviation 47.2 fL (36.4-46.3); Red Blood Count 5.14 M/uL (4.70-6.10); White Blood Count 22.77 K/ul (4.8-10.8)
[2024-08-15 10:06] LABS: Albumin Globulin Ratio 1.7 (0.9-2); Albumin Level 4.8 gm/dl (3.4-5.0); BUN Creatinine Ratio 22.1 (10-20); Calcium 9.2 mg/dl (8.6-10.3); Creatinine Clr Calc Pharmacy 102.4 ml/min; Globulin 2.8 gm/dl (2.5-4.0); Magnesium 1.9 mg/dl (1.7-2.4); Potassium 3.8 mmol/L (3.5-5.1); Total Protein 7.6 gm/dl (6.0-8.3)
[2024-08-15 10:13] LABS: Troponin I High Sensitivity 44.8 pg/ml (0-20)
[2024-08-15 10:19] LABS: Adenovirus PCR Not Detected (NotDetected); Bordetella parapertussis PCR Not Detected (NotDetected); Bordetella pertussis PCR Not Detected (NotDetected); Chlamydia pneumoniae PCR Not Detected (NotDetected); Coronavirus 229E PCR Not Detected (NotDetected); Coronavirus CoV-2 (COVID19)PCR Not Detected (NotDetected); Coronavirus HKU1 PCR Not Detected (NotDetected); Coronavirus NL63 PCR Not Detected (NotDetected); Coronavirus OC43PCR Not Detected (NotDetected); Human Metapneumovirus PCR Not Detected (NotDetected); Influenza A PCR Not Detected (NotDetected); Influenza B PCR Not Detected (NotDetected); Mycoplasma pneumoniae PCR Not Detected (NotDetected); Parainfluenza Virus 1 PCR Not Detected (NotDetected); Parainfluenza Virus 2 PCR Not Detected (NotDetected); Parainfluenza Virus 3 PCR Not Detected (NotDetected); Parainfluenza Virus 4 PCR Not Detected (NotDetected); Respiratory Syncytial VirusPCR Not Detected (NotDetected); Rhinovirus/Enterovirus PCR DETECTED (NotDetected)
[2024-08-15] MEDS: cefTRIAXone SODIUM 2,000 MG/50 ML BAG IV STA (10:31)
--- NOTE | 2024-08-15 10:44 | History & Physical Report ---
Date of Service August 15, 2024 Assessment & Plan (1) Rhinovirus infection: (2) Respiratory acidosis: (3) Acute hypoxic respiratory failure: (4) Elevated troponin: Plan Beverly Fermin is a 58y/o M with PMHx significant for severe COPD with emphysema, HLD, GERD, diverticulitis, DDD, major depressive disorder, tobacco use disorder and chronic back pain who presented to the ED via EMS secondary to worsening SOB/dyspnea and was found to be in acute hypoxic respiratory failure on arrival. Enterovirus/Rhinovirus Infection & Respiratory Acidosis Acute Hypoxic Respiratory Failure ISO Severe COPD w/ Emphysema : Patient's O2 sat was 88% on arrival to the ED. He was subsequently placed on BiPAP with improvement in his breathing. WBC 22.77k, RVP positive for entero- /rhinovirus. VBG showed respiratory acidosis with a pH of 7.27 and pCO2 of 71. CXR showed advanced emphysema with no active disease. Procalcitonin negative, BNP 91. Lactate negative. S/p 2g IV Rocephin, 125mg IV Solu-Medrol and hour-long albuterol neb in the ED. Will continue IV Rocephin 2g Q24H, oral doxycycline added on as well. Pulmonology consulted. Pulmonary toilet with incentive spirometry, flutter valve and scheduled nebs. 40mg IV Solu-Medrol Q8H. Blood culture pending. Chest CTA pending. Initial ABG pending. NPO for now. Aspiration and contact precautions. Repeat ABG, routine labs in AM. Wean off BiPAP as tolerated. Patient will ultimately need close pulmonology follow-up at time of discharge. He has not seen [facility] since 07/2021. Continue home Trelegy. Encourage smoking cessation. Denies need for nicotine patch at this time. Elevated Troponin: Troponin elevated at 44.8 on arrival, likely reactive secondary to respiratory status. Initial EKG showed baseline artifact but no obvious acute ST changes. Repeat troponin was 112.6 at 11:50. Repeat EKG pending. Routine complete echocardiogram pending. Continuous cardiac monitoring in place. May need to get cardiology involved pending repeat EKG and/or echocardiogram findings. Continue to trend troponin Q6H. EKG daily x 2. EKG with chest pain as needed. Other Chronic Medical Conditions: HLD, GERD, chronic back pain and seasonal allergies --> Can continue home medications for these specific conditions. DVT Prophylaxis: SQ Lovenox Code Status: FULL CODE PCP: Octavio Miller MD Disposition: Admit to PCU/Telemetry Patient seen in collaboration with Dr. Vera. Please see addendum. I spent a total of 65 minutes coordinating, documenting, and providing care for this patient excluding time spent in the performance of separately billed services. This included personally reviewing all current laboratories and imaging studies, medical reconciliation, outpatient chart review and discussion with specialists. This chart was completed in part utilizing Speech Voice Recognition Software. Grammatical errors, random word insertions, pronoun errors, and incomplete sentences are an occasional consequence of this system due to software limitations, ambient noise, and hardware issues. Any formal questions or concerns about the content, text, or information contained within the body of this dictation should be directly addressed to the provider for clarification. History of Present Illness Chief Complaint: SOB/Dyspnea Primary Care Provider: Octavio Miller MD Beverly Fermin is a 58y/o M with PMHx significant for severe COPD with emphysema, HLD, GERD, diverticulitis, DDD, major depressive disorder, tobacco use disorder and chronic back pain who presented to the ED via EMS secondary to worsening SOB/dyspnea. History obtained from patient, family at bedside and associated chart review. Patient seen at bedside with Dr. Vera. Patient's reports that she found him this morning hunched over in the bathroom and struggling to breathe. She was the one who called EMS. She mentions that he was recently around their granddaughter who has an upper respiratory illness. He has been feeling increasingly short of breath over the past 2 days per his . Does not recall any fevers. He does have COPD and uses Trelegy daily. reports that he is noncompliant with his albuterol nebulizer treatments but has been using his rescue inhaler quite frequently over the past few days without much relief. He smokes approximately 1 to 1 and 1/2 packs of cigarettes per day. He was recently prescribed an 8-day prednisone taper pack on 08/05/2024. Patient was endorsing some pain in his lower back region in addition to intermittent right- sided lower chest pain. Patient was in obvious respiratory distress when EMS arrived at his house, O2 sat % was in the 80s on RA. He received a DuoNeb en route without significant improvement. He was placed on BiPAP in the ED. VBG showed respiratory acidosis w ith a pH of 7.27 and pCO2 of 71mmHg. WBC notably elevated at 22.77k and RVP was positive for entero-/rhinovirus. Troponin also elevated at 44.8 on arrival, likely reactive secondary to respiratory status. Initial EKG showed baseline artifact but no obvious acute ST changes. CXR showed advanced emphysema with no active disease such as pneumonia. Allergies Allergy/AdvReac Type Severity Reaction Status Date / Time No Known Allergies Allergy Verified 06/27/24 13:11 Home Medications Medication Instructions Recorded Confirmed Type gabapentin 300 mg capsule 300 mg PO TID 06/09/21 08/15/24 History albuterol sulfate 2.5 mg/3 mL 2.5 mg inhalation QID PRN Wheezing 03/05/24 08/15/24 History (0.083 %) solution for nebulization albuterol sulfate 90 mcg/actuation 2 puff inhalation Q4H PRN Dyspnea 03/05/24 08/15/24 History aerosol inhaler fluticasone fur. 200 mcg-umeclid 1 inh inhalation DAILY 03/05/24 08/15/24 History 62.5 mcg-vilant 25 mcg inhalat.powder (Trelegy Ellipta) omeprazole 20 mg capsule,delayed 40 mg PO QAM 03/05/24 08/15/24 History release rosuvastatin 10 mg tablet 10 mg PO DAILY 03/05/24 08/15/24 History loratadine 10 mg tablet (Claritin) 10 mg PO DAILY PRN allergies 06/27/24 08/15/24 History Past Med/Surg History Problem List (Updated 08/15/24 @ 14:57 by Ritika Anguiano MD, [facility]) COPD with emphysema Acute respiratory failure with hypoxia and hypercapnia Elevated troponin (Acute) Rhinovirus infection (Acute) Leukocytosis (Acute) COPD exacerbation (Acute) Respiratory acidosis (Acute) Respiratory distress (Acute) Acute hypoxic respiratory failure Abnormal CT of the abdomen Abdominal pain (Acute) Colonic diverticular abscess (Acute) Sepsis (Acute) Sigmoid diverticulitis (Acute) Medical History HLD (hyperlipidemia) GERD (gastroesophageal reflux disease) Tobacco use disorder Chronic obstructive pulmonary disease, unspecified Low back pain Surgical History H/O inguinal hernia repair Family History Other Diabetes Diverticulitis large intestine Heart disease Social History Smoking Status: Current every day smoker Tobacco Type: Cigarettes packs per day: 1.5; Cigarettes Per Day: 3/4 pack; Second Hand Exposure: Yes; Do You Dip or Chew Tobacco: No; Hx Alcohol Use: Yes Alcohol type: hard liquor Alcohol Intake Frequency: 2-4 x/Month Hx Substance Use: Yes Non-Prescribed Medications: Marijuana Non-Prescribed Medications Comment: occasional use Preferred Language: Yi Communication Ability: Effective 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 Physical Exam Physical Exam: Please refer to Dr. Vera's addendum for physical examination findings. Results & Data Results & Data Vital Signs (Past 12 Hours) Vital Signs Temp Pulse Pulse Resp BP Pulse Ox O2 Del Method 08/15/24 09:30 106 H 23 97 08/15/24 09:30 106 H 23 98 BiPAP 08/15/24 09:09 88 L Room Air 08/15/24 09:09 37.3 C 100 H 26 H 121/90 88 L Room Air FiO2 08/15/24 09:30 21 08/15/24 09:30 21 08/15/24 09:09 08/15/24 09:09 Laboratory Results Short CBC 08/15/24 Range/Units 09:12 WBC 22.77 H (4.8-10.8) K/ul Hgb 15.9 (14.0-18.0) g/dl Hct 47.5 (42.0-52.0) % Plt Count 319 (130-400) K/uL BMP 08/15/24 09:12 Sodium 141 Potassium 3.8 Chloride 101 Carbon Dioxide 31 BUN 17 Creatinine 0.77 Glucose 145 H Calcium 9.2 Liver Function 08/15/24 Range/Units 09:12 Total Bilirubin 1.0 (0.2-1.0) mg/dl AST 28 (13-39) U/L ALT 46 (7-52) U/L Alkaline Phosphatase 64 (34-104) U/L Albumin 4.8 (3.4-5.0) gm/dl Diagnostic Findings Chest X-Ray 08/15/24 09:13 SINGLE VIEW CHEST CLINICAL HISTORY: Dyspnea FINDINGS: 2 AP, portable, upright chest radiographs are compared to study dated 03/05/2024. The cardiomediastinal silhouette is unremarkable. Advanced emphysema and chronic interstitial thickening is similar to previous. Scarring/atelectasis is noted at the lung bases. No airspace consolidation or pleural effusion is identified. No pneumothorax is seen. The skeletal structures are osteopenic. The bony thorax is grossly intact. IMPRESSION: Advanced emphysema with no active disease in the chest. ACT 112: Negative or not required by law. Electronically signed by: Chris Soni M.D. 08/15/2024 9:30 AM Medications Administered Discontinued Medications Albuterol (Albut/Ipratrop 3mg/0.5mg Neb 3 Ml Vial) 12 ml NEB ONE ONE; Protocol Stop: 08/15/24 09:13 Last Admin: 08/15/24 09:29 Dose: 12 ml Documented By: KATHIE Ceftriaxone Sodium (Rocephin) 2,000 mg in 50 mls @ 100 mls/hr IV NOW STA Stop: 08/15/24 10:43 Last Admin: 08/15/24 10:31 Dose: 100 mls/hr Documented By: KRISH Methylprednisolone (Methylprednisolone 125 Mg/2 Ml Vial) 125 mg IV NOW STA Stop: 08/15/24 09:13 Last Admin: 08/15/24 09:15 Dose: 125 mg Documented By: KRISH Code Status & VTE Plan Code Status FULL CODE VTE Prophylaxis Plan VTE Prophylaxis will be ordered: Yes Supervising Physician Co-Signing Physician Notes Patient is a 58-year-old male with history of severe COPD, tobacco use disorder, GERD, hyperlipidemia, mood disorder and other medical problems presents with worsening shortness of breath, rhinitis, cough with expectoration and some right-sided chest discomfort with cough especially since 2 days duration. He admits to have contact with his granddaughter who was ill with respiratory symptoms. Patient continues to smoke about 1-1/2 pack/day. He was found to be in hypoxic in 80s in ED and was placed on BiPAP. Please review HPI for complete details of presentation. I personally reviewed blood work and imaging studies. Noted elevated WBC count, VBG suggestive of respiratory acidosis with hypercarbia, troponin elevation, normal procalcitonin, normal BNP. BioFire positive for rhinovirus. CTA showed no signs of PE, findings suggestive of advanced COPD, granulomatous disease and hepatic steatosis. EKG showed normal sinus rhythm with sinus arrhythmia, QTc 465. Echo showed normal EF with no wall motion abnormality, left ventricle is hyperdynamic. Physical Exam: Vitals signs as noted above General Appearance:Obese, no apparent distress Head: normocephalic, Atraumatic Eyes: normal inspection, EOMI Neck: supple, Trachea midline Respiratory/Chest: Decreased coarse breath sounds, wheezing, rhonchi, + accessory muscle use Cardiovascular: S1, S2, No murmur,+ tachycardia Abdomen/GI:Soft, Non tender, Bowel sounds present Extremities/Musculoskeletal:normal inspection, trace pedal edema Neurologic/Psych:AAOX3, grossly no focal neurological deficits Skin: normal color, warm Acute on chronic respiratory failure with hypoxia and hypercarbia Acute COPD exacerbation secondary to rhinovirus infection Ongoing tobacco use disorder Troponin elevation likely demand ischemia secondary to above Started on empiric antibiotics, nebs, Solu-Medrol Continue BiPAP, repeat VBG Pulmonology on board Counseled to quit tobacco use Patient refused nicotine patch Aggressive pulmonary hygiene with Mucinex, flutter, incentive Aspiration precautions I personally interviewed and examined at bedside. Patient's care is coordinated with Maricruz Pearson PA-C. I have reviewed the advanced practitioner's documentation, and I agree with plan of care. Please refer to the documentation above for details of patient's presentation and for discussion of other issues. I spent a total [id number] coordinating, documenting, and providing care for this patient excluding time spent in the performance of separately billed services.
--- NOTE | 2024-08-15 11:14 | Pulmonary Consultation ---
Date of Consultation August 15, 2024 Assessment & Plan (1) Rhinovirus infection: (2) COPD exacerbation: (3) Acute respiratory failure with hypoxia and hypercapnia: (4) COPD with emphysema: (5) Tobacco use disorder: (6) Acute bronchitis: Plan CT chest 08/15/2024 personally reviewed: Severe centrilobular and paraseptal emphysema appreciated bilaterally Saber-sheath trachea Bronchial wall thickening appreciated bilaterally especially in the lower lobes No mediastinal lymphadenopathy --Acute hypoxic respiratory failure With acute COPD exacerbation and acute on chronic bronchitis Etiology is likely rhinovirus Respiratory BioFire was positive for entero-/rhinovirus Procalcitonin 0.1 -- Severe COPD with emphysema On Trelegy 200 at home --Current smoker [id number] smoking history Plan: Continue with nebulized dilators Mucinex and flutter valve BiPAP nightly and as needed shortness of breath There is any worsening then will consider intubation Case was discussed with RT as well as primary team Please note the above document was generated using voice recognition software. It may contain grammatical, syntax or spelling errors.Any formal questions or concerns about the content, text or information contained within the body of this dictation should be directly addressed to the provider for clarification. History of Present Illness History of Present Illness 58-year-old male present to the hospital with complaints of shortness of breath Past medical history: COPD, dyslipidemia, GERD, depressive disorder Pulmonary consulted for hypoxia At the time of examination patient's as well as sister were in the room Patient was on BiPAP 14/5, saturating 93-94% with FiO2 21% He was using accessory muscles As per the patient as well as family he is feeling better and less accessory muscle use compared to before being on BiPAP He has been having coughing and difficulty bringing up the phlegm He is compliant with discharge inhaler. He follows up with [facility] pulmonology. He has granddaughter who was recently sick. 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 200 mcg-umeclid 1 inh inhalation DAILY 03/05/24 08/15/24 History 62.5 mcg-vilant 25 mcg inhalat.powder (Trelegy Ellipta) omeprazole 20 mg capsule,delayed 40 mg PO QAM 03/05/24 08/15/24 History release rosuvastatin 10 mg tablet 10 mg PO DAILY 03/05/24 08/15/24 History loratadine 10 mg tablet (Claritin) 10 mg PO DAILY PRN allergies 06/27/24 08/15/24 History Patient History Medical History HLD (hyperlipidemia) GERD (gastroesophageal reflux disease) Tobacco use disorder Chronic obstructive pulmonary disease, unspecified Low back pain Surgical History H/O inguinal hernia repair Family History Other Diabetes Diverticulitis large intestine Heart disease Social History Smoking Status: Current every day smoker Tobacco Type: Cigarettes packs per day: 1.5; Cigarettes Per Day: 3/4 pack; Second Hand Exposure: Yes; Do You Dip or Chew Tobacco: No; Hx Alcohol Use: Yes Alcohol type: hard liquor Alcohol Intake Frequency: 2-4 x/Month Hx Substance Use: Yes Non-Prescribed Medications: Marijuana Non-Prescribed Medications Comment: occasional use Preferred Language: Egyptian Communication Ability: Effective Sailing Officer Required: No Beliefs That Will Affect Care: None Current Living Situation: Spouse Other Information That Helps Us Care for You: No Feels Safe at Home: Yes Safety Concerns: Feels Safe At This Time Assistive Devices: Glasses Review of Systems 2 Review of Systems: All systems reviewed & are unremarkable except as noted in HPI & below Physical Exam 2 Physical Exam: Constitutional: In respiratory distress HEENT: EOMI, PERRLA Respiratory system: Decreased air entry bilaterally, positive expiratory wheeze, no rhonchi, no crackles CVS: S1-S2 positive, no murmurs or gallops Abdomen: Soft, nontender, distended, positive bowel sounds x4, obese Extremities: +2 pulses bilaterally radialis/ dorsalis pedis, no cyanosis, no edema Neuro: Awake alert oriented x3 Psych: Normal mood and affect G/U: No Dempsey Skin: no rashes, warm and dry Lymphatic: no cervical or axillary lymphadenopathy Results & Data Results & Data Vital Signs (Past 12 Hours) Vital Signs Temp Pulse Pulse Resp BP Pulse Ox O2 Del Method 08/15/24 09:30 106 H 23 97 08/15/24 09:30 106 H 23 98 BiPAP 08/15/24 09:09 88 L Room Air 08/15/24 09:09 37.3 C 100 H 26 H 121/90 88 L Room Air FiO2 08/15/24 09:30 21 08/15/24 09:30 21 08/15/24 09:09 08/15/24 09:09 Laboratory Results 08/15/24 09:12 08/15/24 09:12 PG Care Time/CCT Total # of Minutes Spent Total Time Spent with Patient: Total time spent is greater than 50% in coordination of care (as documented) at patient's floor/unit and/or counseling patient: Coding Level of Care Code 59311 INT INP/OBS CARE 3/75MIN Diagnoses Rhinovirus infection B34.8 COPD exacerbation J44.1 Acute respiratory failure with hypoxia and hypercapnia J96.01; J96.02 COPD with emphysema J43.9 Tobacco use disorder F17.200 Acute bronchitis J20.9
[2024-08-15] MEDS: FORMOTEROL 20 MCG/2 ML VIAL INH SCH (11:43)
[2024-08-15] MEDS ORDERED: LORATADINE 10 MG TAB PO PRN (12:12)
[2024-08-15] MEDS ORDERED: ACETAMINOPHEN 325 MG TAB PO PRN (12:12)
[2024-08-15] MEDS ORDERED: ONDANSETRON INJ 2 MG/ML 2 ML VIAL IV PRN (12:12)
[2024-08-15] MEDS ORDERED: POLYETHYLENE (MIRALAX) 17 GM PACK PO PRN (12:12)
[2024-08-15] MEDS: ALBUT/IPRATROP 3MG/0.5MG NEB 3 ML VIAL NEB SCH (12:18)
[2024-08-15 12:32] LABS: Partial Thromboplastin Ratio 0.9; Partial Thromboplastin Time 23 Seconds (21-31); Prothrombin Time 10.5 Seconds (9.0-12.0)
[2024-08-15] MEDS ORDERED: NON-FORMULARY MEDICATION (Fluticasone-Umeclidin-Vilanter [Trelegy Ellipta] 200-62.5-25 mcg INH SCH (13:30)
[2024-08-15] MEDS: GABAPENTIN 300 MG CAP PO SCH (13:34)
[2024-08-15] MEDS: DOXYCYCLINE HYCLATE 100 MG CAP PO SCH (13:34)
[2024-08-15] MEDS: ENOXAPARIN INJ 40 MG/0.4 ML SYR SQ SCH (13:34)
[2024-08-15] MEDS: OPTIRAY 320 125ml IV ONE (14:40)
[2024-08-15] MEDS: LEVALBUTEROL HCL 0.63 MG/3 ML NEB NEB PRN (15:01)
[2024-08-15] MEDS: FLUTICASONE FUROATE 200MCG 14 PUFFS/INHALER INH SCH (15:15)
[2024-08-15] MEDS: UMECLIDINIUM/VILANTEROL 62.5/25MCG 7 PUFFS/INHALER INH SCH (15:15)
--- NOTE | 2024-08-15 15:33 | Electrocardiogram Report ---
Test Reason : Blood Pressure : */* mmHG Vent. Rate : 99 BPM Atrial Rate : 99 BPM P-R Int : 116 ms QRS Dur : 74 ms QT Int : 312 ms P-R-T Axes : 86 75 74 degrees QTcB Int : 400 ms Poor data quality, interpretation may be adversely affected Normal sinus rhythm Normal ECG When compared with ECG of 05-Mar-2024 22:42, No significant change was found Confirmed by Evan Dunn ([id number]) on 08/15/2024 3:32:59 PM Referred By: REFERRED SELF Confirmed By: Evan Dunn
--- NOTE | 2024-08-15 15:33 | Electrocardiogram Report ---
Test Reason : Blood Pressure : */* mmHG Vent. Rate : 84 BPM Atrial Rate : 84 BPM P-R Int : 120 ms QRS Dur : 76 ms QT Int : 394 ms P-R-T Axes : 85 71 77 degrees QTcB Int : 465 ms Normal sinus rhythm with sinus arrhythmia Normal ECG When compared with ECG of 15-Aug-2024 09:04, (unconfirmed) QT has lengthened Confirmed by Evan Dunn ([id number]) on 08/15/2024 3:33:30 PM Referred By: REFERRED SELF Confirmed By: Evan Dunn
--- NOTE | 2024-08-15 15:51 | CT Scan Report ---
CT angio chest PE protocol CT DOSE: 784.9 mGy.cm HISTORY: 58 years-old Male with Acute hypoxic resp failure, r/o PE. Acute shortness of breath TECHNIQUE: Multiple CTA images of the chest were obtained after the intravenous administration of 118 ml Optiray. Coronal and sagittal MIPS were obtained from the axial data set and were submitted for review. All measurements were obtained according to NASCET criteria. A dose lowering technique was u tilized adhering to the principles of ALARA. COMPARISON: Chest radiograph of same day FINDINGS: CTA: Trace pericardial effusion. Heart is normal in size. No thoracic aortic aneurysm or dissection. There is patency of the imaged great vessels. No pulmonary emboli identified. CT CHEST: No solid nodule or pathologically enlarged lymph nodes. Scattered partially calcified mediastinal and hilar lymph nodes compatible with prior granulomatous disease. No pneumothorax, pleural effusion or lobar airspace consolidation. Hyperinflation with advanced pulmonary emphysema. Bronchial wall thicke jade with bibasilar predominant mucus plugging. Mild dependent subsegmental bibasilar atelectasis. No suspicious pulmonary nodules or masses. Bony spurring involves a few right-sided lateral ribs with a djacent pleural parenchymal scarring of the lung. No acute upper abdominal abnormality. Had etc. ptos is. Unremarkable soft tissues. No acute fracture. IMPRESSION: 1. No pulmonary emboli identified. 2. Advanced emphysema with bronchitis and bibasilar mucous plugging. 3. Prior granulomatous disease. 4. Hepatic steatosis. ACT 112: Negative or not required by law. The above report was generated using voice recognition software. It may contain grammatical, syntax o r spelling errors. Electronically signed by: Elias Goldsmith M.D. 08/15/2024 3:50 PM
[2024-08-15] MEDS: methylPREDNISolone 40 MG in SYRINGE 0 ML IV SCH (16:56)
[2024-08-15] MEDS: SODIUM CHLORIDE 0.9% 1,000 ML IV ONE (16:58)
[2024-08-15] MEDS ORDERED: methylPREDNISolone 125 MG/2 ML VIAL IV SCH (17:00)
--- OUTSIDE RECORDS SUMMARY | 2024-08-15 17:54 | External Medical Summary | Summary of Care ---
Author Name Unknown Organization [facility] Address [address] [place] [address] Phone [phone] Care Team Providers Care Sheeting Puller Name Role Phone Octavio Miller MD Primary Care Provider [phone] [phone] Reason for Visit * Reason Onset Date Comments Mammogram 07/16/2024 Encounter Details Date Type Department Care Team (Late st Contact Info) Description 07/16/2024 Telephone Radiology [address] [place] [address] Octavio Miller MD [address] [place] [id number] Mammogram Allergies No known active allergiesdocumented as of this encounter (statuses as of 07/16/2024) Medications Medication Sig Dispensed Refills Start Date End Date Status Triamcinolone Acetonide 0.5 % External Cream Apply topically to affected area 2 times a day. To affected area. 60 g 09/28/2021 Active Compressor Nebulizer Inhale via nebulizer. Use as directed. 1 Each 1 08/08/2023 Active Albuterol Sulfate (2.5 MG/3ML) 0.083% Inhalation Nebulization Solution (Proventil) Inhale 1 Vial via nebulizer in the morning and 1 Vial at noon and 1 Vial in the evening and 1 Vial before bedtime. 225 mL 1 10/04/2023 Active guaiFENesin ER 600 MG Oral Tablet Extended Release 12 Hour (Mucinex) Take 2 Tablets by mouth in the morning and 2 Tablets before bedtime. Take with plenty of water. Do not cut, crush or chew. 120 Tablet 2 11/02/2023 Active Ondansetron HCl 4 MG Oral TabletIndications:Na usea and vomiting, unspecified vomiting type Take 1 Tablet by mouth every 6 hours as needed for Nausea. 20 Tablet 03/04/2024 Active Rosuvastatin Calcium 10 MG Oral Tablet (Crestor) Take 1 Tablet by mouth daily. 90 Tablet 3 03/20/2024 Active Trelegy Ellipta 200-62.5-25 MCG/ACT Aerosol Powder Breath Activated (Fluticasone-Umeclid inium-Vilanterol)Ind ications:COPD, group D, by GOLD 2017 classification ([facility]) Inhale 1 Puff by mouth in the morning. 180 Blister Dosing Unit 3 03/20/2024 Active Albuterol Sulfate HFA 108 (90 Base) MCG/ACT Inhalation Aerosol Solution INHALE 2 PUFFS BY MOUTH EVERY 4 HOURS NEEDED FOR DYSPNEA. 8.5 g 2 05/03/2024 Active Gabapentin 300 MG Oral Capsule (Neurontin)Indicatio ns:DDD (degenerative disc disease), lumbar,Lumbar radiculopathy TAKE 1 CAPSULE BY MOUTH EVERY DAY IN THE MORNING , AT NOON, AND BEFORE BEDTIME 90 Capsule 5 06/06/2024 Active Amoxicillin-Pot Clavulanate 875-125 MG Oral Tablet (Augmentin) TAKE 1 TABLET BY MOUTH TWICE A DAY FOR 11 DAYS 06/30/2024 Active predniSONE 20 MG Oral Tablet (Deltasone) Take 4 tabs daily for 2 days, 3 tabs daily for 2 days, 2 tabs daily for 2 days, 1 tab daily for 2 days 20 Tablet 3 07/03/2024 Active Omeprazole 20 MG Oral Capsule Delayed Release (PriLOSEC)Indication s:Gastroesophageal reflux disease, unspecified whether esophagitis present Take 2 Capsules by mouth in the morning. Every morning.. 180 Capsule 07/11/2024 Active documented as of this encounter (statuses as of 07/16/2024) Active Problems Problem Noted Date Diagnosed Date Diverticulosis of large intestine without hemorr susan 07/01/2024 History of pneumothorax 03/09/2023 COPD, group D, by GOLD 2017 classification 10/18 Overview: Per COPD GOLD Classification Gastroesophageal reflux disease without esophagi tis 07/09/2021 Current mild episode of major depressive disorde r 07/01/2021 DDD (degenerative disc disease), lumbar 03/20/20 17 Overview: L3-L4 MRI on 03/18/17 Tobacco use 02/12/2016 documented as of this encounter (statuses as of 07/16/2024) Resolved Problems Problem Noted Date Diagnosed Date Resolved Date Viral URI with cough 11/02/2023 024 Rash and nonspecific skin eruption 09/28/2021 11/27/2021 MEDICATION USE AGREEMENT 02/08/2021 COPD exacerbation 02/17/2020 03/20/2024 Overview: Per COPD GOLD Classification COPD, severe 02/02/2016 02/20/2020 Overview: 02/19 start Advair, NEED vaccines, consider pulm 01/19 PFTs-severe obstruction, partial reversible. CXR WNL documented as of this encounter (statuses as of 07/16/2024) Immunizations Name Administration Dates Next Due COVID-19 mRNA, LNP-s, No Pre serve, 2-Dose Series (VaxInnate) 02/20/2021,02/08/2021 Pneumococcal Conjugate Vaccine, 20-valent (Prevn ar20) 07/25/2023 Pneumococcal Polysaccharide PPV23 (Pneumovax) Seasonal Influenza, PF, 6 M & above, IM , (FluLaval or Fluzone) 07/25/2023,08/31/2017 Seasonal Influenza, Trivalen t, (IIV3), with Preserv, (Fluzone) 07/22/2010 TDAP, Age 7 and older, IM (Adacel) 11/06/2010 documented as of this encounter Social History Tobacco Use Types Packs/Day Years Used Date Smoking Tobacco: Every Day Cigarettes 0.8 33 Smokeless Tobacco: Never Alcohol Use Standard Drinks/Week Comments Yes 0 (1 standard drink = 0.6 oz pur e alcohol) occasionally PHQ-2 Answer Date Recorded PHQ Adult Total Score 19 07/01/2021 Utilities Answer Date Recorded Do you have trouble paying y our heating, water, or electric bill? (Adult - for ages 18 years and over) Not on file 04/23/2024 Is your family able to pay t he heat, water, or electric bill? (Household - for ages 0-17 years) Not on file 04/23/2024 Does your family have access to good internet? (Household - for ages 0-17 years) Not on file 04/23/2024 Social Connections Answer Date Recorded How often do you feel lonely or isolated from those around you? (Adult - for ages 18 years and over) Not on file 04/23/2024 Sex and Gender Information Value Date Recorded Sex Assigned at Not on file Gender Identity Not on file Sexual Orientation Not on file Job Start Date Occupation Industry Not on file Not on file Not on file documented as of this encounter Miscellaneous Notes * Telephone Encounter - Moira Little OSA - 07/16/2024 3:15 PM EDT Finally able to get hold of patient. He states he definitely does not need a mammogram. Patient scheduled incorrect. Appointment has been cancelled. * Telephone Encounter - Octavio Miller MD - 07/16/2024 2:54 PM EDT I have no idea why he is scheduled for a mammogram * Telephone Encounter - Lauren Encinas RT (R)(Jovanny) - 07/16/2024 2:29 PM EDT Patient is scheduled Sunday 07/22 for bilateral screening mammogram. There are no orders in the chart. Is patient currently having issues and needs to be seen as a diagnostic or does the patient have family hx? Thank you, Lauren documented in this encounter Plan of Treatment Upcoming Encounters Date Type Department Care Team (Latest Contact Info) Description 09/05/2024 10:15 AM EDT Hospital Encounter ENDO [facility], Endoscopy Room [facility] [address] [place] [phone] Lisa Michaels MD [address] [place] [address] 09/05/2024 10:15 AM EDT - 09/05/2024 10:45 AM EDT Surgery ENDO [facility], Endoscopy Room [facility] [address] [place] [address] Lisa Michaels MD [address] [place] [address] COLONOSCOPY FLEXIBLE PROXIMAL DIAGNOSTIC 09/12/2024 12:30 PM EST Office Visit Gastroenterology, [facility] [address] [place] [address] Kaitlin Morales CRNP [address] [place] [address] Scheduled Procedures Name Priority Associated Diagnoses Date/Ti me COLONOSCOPY FLEXIBLE PROXIMAL DIAGNOSTIC Gastroesophageal reflux disease, unspecified whether esophagitis present Diverticulitis of colon 09/05/2024 10:15 AM EDT Health Maintenance Due Date Last Done Comments HIV Screening 1981 Alpha-1 Antitrypsin 1984 Hepatitis C Screening 1984 Hepatitis B Vaccine (1 of 3 - 19+ 3-dose series) 1985 Cologuard 2011 Colonoscopy 2011 Colorectal Cancer Screening 2011 Fecal Occult Blood Test 2011 Sigmoidoscopy 2011 DTap/Tdap Vaccines (2 - Td or Tdap) 11/06/2020 11/06/2010 Zoster Vaccines (2 of 2) 10/01/2021 08/06/2021 Depression Monitoring 07/01/2022 07/01/2021 DISCUSS TOBACCO CESSATION (REFER TO SMARTSET #3291) 07/09/2022 07/09/2021 COVID-19 Vaccine ( season) 2024 03/10/2021, 02/20/2021, 02/08/2021 Influenza Vaccine (FLU shot) (#1) 2024 07/25/2023, 08/31/2017, 07/22/2010 O2 ASSESSMENT COMPLETED IN PAST YEAR FOR COPD 07/11/2025 07/11/2024 Diabetes Screening 04/28/2026 04/28/2023, 0 12/14/2019, 02/12/2016, Additional history exists Lipid Panel 04/28/2028 04/28/2023 Lung Cancer Screening Completed 05/29/2023 Pneumococcal Vaccine: Pediatrics (0 to 5 Years) and At-Risk Patients (6 to 64 Years) Completed 07/25/2023, 08/31/2017 HPV (Gardasil) Vaccine Aged Out No lo nger eligible based on patient's age to complete this topic MENINGOCOCCAL (MENACTRA/MENVEO) Aged Out No longer eligible based on patient's age to complete this topic documented as of this encounter Medical Devices Not on filedocumented as of this encounter Care Teams Sheeting Puller Relationship Specialty Start Date End Date Octavio Miller MD [address] [place] [address] PCP - General Family Medicine 03/09/21 documented as of this encounter
--- OUTSIDE RECORDS SUMMARY | 2024-08-15 17:54 | External Medical Summary | Summary of Care ---
Author Name Unknown Organization [facility] Address [address] [address] Phone [phone] Care Team Providers Care Cardiothoracic Surgeon Name Role Phone Octavio Miller MD Primary Care Provider [phone] Reason for Visit * Reason Comments eRx-Medication Refill Encounter Details Date Type Department Care Team (Late st Contact Info) Description 08/09/2024 Refill Gastroenterology, [facility] [address] [place] [address] Marika Wu CRNP [address] [place] [address] Gastroesophageal reflux disease, unspecified whether esophagitis present Allergies No known active allergiesdocumented as of this encounter (statuses as of 08/12/2024) Medications Medication Sig Dispensed Refills Start Date [...] ications:COPD, group D, by GOLD 2017 classification ([facility]) Inhale 1 Puff by mouth in the morning. 180 Blister Dosing Unit 3 03/20/2024 Active Gabapentin 300 MG Oral Capsule (Neurontin)Indicatio ns:DDD (degenerative disc disease), lumbar,Lumbar radiculopathy TAKE 1 CAPSULE BY MOUTH EVERY DAY IN THE MORNING , AT NOON, AND BEFORE BEDTIME 90 Capsule 5 06/06/2024 Active Amoxicillin-Pot Clavulanate 875-125 MG Oral Tablet (Augmentin) TAKE 1 TABLET BY MOUTH TWICE A DAY FOR 11 DAYS 06/30/2024 Active Omeprazole 20 MG Oral Capsule Delayed Release (PriLOSEC)Indication s:Gastroesophageal reflux disease, unspecified whether esophagitis present Take 2 Capsules by mouth in the morning. Every morning.. 180 Capsule 07/11/2024 Active Albuterol Sulfate HFA 108 (90 Base) MCG/ACT Inhalation Aerosol Solution INHALE 2 PUFFS BY MOUTH EVERY 4 HOURS NEEDED FOR DYSPNEA. 8.5 g 11 07/21/2024 Active predniSONE 20 MG Oral Tablet (Deltasone) Take 4 tabs daily for 2 days, 3 tabs daily for 2 days, 2 tabs daily for 2 days, 1 tab daily for 2 days 20 Tablet 3 08/05/2024 Active documented as of this encounter (statuses as of 08/12/2024) Active Problems Problem Noted Date Diagnosed Date [...] as of this encounter (statuses as of 08/12/2024) Resolved Problems Problem Noted Date Diagnosed Date Resolved Date Viral URI with cough 11/02/2023 024 Rash and nonspecific skin eruption 09/28/2021 11/27/2021 MEDICATION USE AGREEMENT 02/08/2021 COPD exacerbation 02/17/2020 03/20/2024 Overview: Per COPD GOLD Classification COPD, severe 02/02/2016 02/20/2020 Overview: 02/19 start Advair, NEED vaccines, consider pulm 01/19 PFTs-severe obstruction, partial reversible. CXR WNL documented as of this encounter (statuses as of 08/12/2024) Immunizations Name Administration Dates Next Due COVID-19 mRNA, LNP-s, No Pre serve, 2-Dose Series (Fluid Stone) 02/20/2021,02/08/2021 Pneumococcal Conjugate Vaccine, 20-valent (Prevn ar20) 07/25/2023 Pneumococcal Polysaccharide PPV23 (Pneumovax) Seasonal Influenza Vac., MDV, IM, 0.5 mL (Fluzon e) 07/22/2010 Seasonal Influenza, PF, 6 M & above, IM , (FluLaval or Fluzone) 07/25/2023,08/31/2017 TDAP, Age 7 and older, IM (Adacel) [...] encounter Miscellaneous Notes * Telephone Encounter - Calista Davis [facility] - 08/12/2024 1:07 PM EDTRefused Prescriptions: Disp Refills Omeprazole 20 MG Oral Capsule Delayed Rele*180 Ca*0 Sig: TAKE 2CAPSULES BY MOUTH IN THE MORNING. EVERY MORNING..Refused By: CALISTA DAVISeason for Refusal:Too soonReason for Refusal Comment: rx for 90 DS sent 07/11/24, pt has f/u appt 09/12/24 * Telephone Encounter - Calista Davis RP - 08/12/2024 12:59 PM EDT Refill too soon/not appropriate at this time as rx for 90 day supply was supplied at [facility] 07/11/24 withplan stating, "Increase omeprazole to 40 mg daily (short course of increase dose)." Enough medication was supplied to hold patient until follow up appt on 09/12/24. Request refused. Thank you, Calista Davis, PharmD Clinical Pharmacist [facility] [phone] 08/12/2024, 1:07 PM documented in this encounter Plan of Treatment Upcoming Encounters Date Type Department Care Team (Latest Contact Info) Description 09/05/2024 10:15 AM EDT Hospital Encounter ENDO [facility], Endoscopy Room [facility] [address] [facility] [place] [address] Lisa Michaels MD [address] [place] [address] 09/05/2024 10:15 AM EDT - 09/05/2024 10:45 AM EDT Surgery [facility] [place] [phone] Lisa Michaels MD [address] [place] [address] COLONOSCOPY FLEXIBLE PROXIMAL DIAGNOSTIC 09/12/2024 12:30 PM EST Office Visit Gastroenterology, [facility] [address] [facility] [place] [address] Kaitlin Morales CRNP [address] [facility] [place] [address] Scheduled Procedures Name Priority Associated Diagnoses Date/Ti [...] TO SMARTSET #3291) 07/09/2022 07/09/2021 COVID-19 Vaccine (4 - season) 2024 03/10/2021, 02/20/2021, 02/08/2021 Influenza Vaccine [...] Not on filedocumented as of this encounter Visit Diagnoses Diagnosis Gastroesophageal reflux disease, unspecified whether esophagitis present Gastroesophageal reflux disease, unspecified whether esophagitis present Diverticulitis of colon Diverticulitis of colon (without mention of hemorrhage) documented in this encounter Care Teams Cardiothoracic Surgeon Relationship Specialty Start Date End Date Octavio Miller MD [address] [place] [address] PCP - General Family Medicine 03/09/21 documented as of this encounter
--- OUTSIDE RECORDS SUMMARY | 2024-08-15 17:54 | External Medical Summary | Summary of Care ---
Author Name Unknown Organization [facility] Address [address] [place] [address] Phone [phone] Care Team Providers Care Custom Bookbinder Name Role Phone Maliha Bolton MD Primary Care Provider [phone] [phone] Reason for Visit * Reason Comments eRx-Medication Refill Encounter Details Date Type Department Care Team (Late st Contact Info) Description 07/20/2024 Refill Family Practice [facility] [address] [place] [address] Nhung Izquierdo PAN[address] [facility] [address] [place] [address] Allergies No known active allergiesdocumented as of this encounter (statuses as of 07/21/2024) Medications Medication Sig Dispensed Refills Start Date End Date Status Triamcinolone Acetonide 0.5 % External Cream Apply topically to affected area 2 times a day. To affected area. 60 g 1 Active Compressor Nebulizer Inhale via nebulizer. Use as directed. 1 Each 1 3 Active Albuterol Sulfate (2.5 MG/3ML) 0.083% Inhalation Nebulization Solution (Proventil) Inhale 1 Vial via nebulizer in the morning and 1 Vial at noon and 1 Vial in the evening and 1 Vial before bedtime. 225 mL 1 3 Active guaiFENesin ER 600 MG Oral Tablet Extended Release 12 Hour (Mucinex) Take 2 Tablets by mouth in the morning and 2 Tablets before bedtime. Take with plenty of water. Do not cut, crush or chew. 120 Tablet 2 3 Active Ondansetron HCl 4 MG Oral TabletIndications:N ausea and vomiting, unspecified vomiting type Take 1 Tablet by mouth every 6 hours as needed for Nausea. 20 Tablet 4 Active Rosuvastatin Calcium 10 MG Oral Tablet (Crestor) Take 1 Tablet by mouth daily. 90 Tablet 3 4 Active Trelegy Ellipta 200-62.5-25 MCG/ACT Aerosol Powder Breath Activated (Fluticasone-Umecli dinium-Vilanterol)I ndications:COPD, group D, by GOLD 2017 classification ([facility]) Inhale 1 Puff by mouth in the morning. 180 Blister Dosing Unit 3 4 Active Gabapentin 300 MG Oral Capsule (Neurontin)Indicati ons:DDD (degenerative disc disease), lumbar,Lumbar radiculopathy TAKE 1 CAPSULE BY MOUTH EVERY DAY IN THE MORNING , AT NOON, AND BEFORE BEDTIME 90 Capsule 5 4 Active Amoxicillin-Pot Clavulanate 875-125 MG Oral Tablet (Augmentin) TAKE 1 TABLET BY MOUTH TWICE A DAY FOR 11 DAYS 4 Active predniSONE 20 MG Oral Tablet (Deltasone) Take 4 tabs daily for 2 days, 3 tabs daily for 2 days, 2 tabs daily for 2 days, 1 tab daily for 2 days 20 Tablet 3 4 Active Omeprazole 20 MG Oral Capsule Delayed Release (PriLOSEC)Indicatio ns:Gastroesophageal reflux disease, unspecified whether esophagitis present Take 2 Capsules by mouth in the morning. Every morning.. 180 Capsule 4 Active Albuterol Sulfate HFA 108 (90 Base) MCG/ACT Inhalation Aerosol Solution INHALE 2 PUFFS BY MOUTH EVERY 4 HOURS NEEDED FOR DYSPNEA. 8.5 g 11 4 Active Albuterol Sulfate HFA 108 (90 Base) MCG/ACT Inhalation Aerosol Solution INHALE 2 PUFFS BY MOUTH EVERY 4 HOURS NEEDED FOR DYSPNEA. 8.5 g 2 4 07/21/20 24 Discontinued documented as of this encounter (statuses as of 07/21/2024) Active Problems Problem Noted Date Diagnosed Date [...] as of this encounter (statuses as of 07/21/2024) Resolved Problems Problem Noted Date Diagnosed Date Resolved Date Viral URI with cough 11/02/2023 024 Rash and nonspecific skin eruption 09/28/2021 11/27/2021 MEDICATION USE AGREEMENT 02/08/2021 COPD exacerbation 02/17/2020 03/20/2024 Overview: Per COPD GOLD Classification COPD, severe 02/02/2016 02/20/2020 Overview: 02/19 start Advair, NEED vaccines, consider pulm 01/19 PFTs-severe obstruction, partial reversible. CXR WNL documented as of this encounter (statuses as of 07/21/2024) Immunizations Name Administration Dates Next Due COVID-19 mRNA, LNP-s, No Pre serve, 2-Dose Series (Youcruit) 02/20/2021,02/08/2021 Pneumococcal Conjugate Vaccine, 20-valent (Prevn ar20) [...] encounter Miscellaneous Notes * Telephone Encounter - Sean Gonzales [facility] - 07/21/2024 10:55 AM EDT Signed Prescriptions: Disp Refills Albuterol Sulfate HFA 108 (90 Base) MCG/AC*8.5 g 11 Sig: INHALE 2 PUFFS BY MOUTH EVERY 4 HOURS NEEDED FOR DYSPNEA.Authorizing Provider: MALIHA BOLTON User: SEAN GONZALES documented in this encounter Plan of Treatment Upcoming Encounters Date Type Department Care Team (Latest Contact Info) Description 09/05/2024 10:15 AM EDT Hospital Encounter ENDO [facility], Endoscopy Room [facility] [address] [facility] [place] [address] Lisa Michaels MD [address] [place] [address] 09/05/2024 10:15 AM EDT - 09/05/2024 10:45 AM EDT Surgery ENDO [facility], Endoscopy Room [facility] [address] [place] [phone] Lisa Michaels MD [address] [place] [address] COLONOSCOPY FLEXIBLE PROXIMAL DIAGNOSTIC 09/12/2024 12:30 PM EST Office Visit Gastroenterology, [facility] [address] [place] [address] Kaitlin Morales CRNP [address] [place] [address] Scheduled Procedures Name Priority Associated Diagnoses Date/Ti [...] SMARTSET #3291) 07/09/2022 07/09/2021 COVID-19 Vaccine ( - season) 2024 03/10/2021, 02/20/2021, 02/08/2021 Influenza [...] filedocumented as of this encounter Care Teams Custom Bookbinder Relationship Specialty Start Date End Date Maliha Bolton MD [address] [place] [address] PCP - General Family Medicine 03/09/21 documented as of this encounter
--- OUTSIDE RECORDS SUMMARY | 2024-08-15 17:54 | External Medical Summary | Summary of Care ---
Author Name Unknown Organization [facility] Address [address] [facility] [place] [address] Phone [phone] Care Team Providers Care Instructional Assistant Name Role Phone Maliha Bolton MD Primary Care Provider [phone] Reason for Visit * Reason Onset Date Comments Medication Refill 08/05/2024 Encounter Details Date Type Department Care Team (Late st Contact Info) Description 08/05/2024 Refill [facility] [address] [place] [address] Maliha Bolton MD [address] [place] [id number] Allergies No known active allergiesdocumented as of this encounter (statuses as of 08/05/2024) Medications Medication Sig Dispensed Refills Start Date [...] 11/02/2023 Active Ondansetron HCl 4 MG Oral TabletIndications:N [...] ndications:COPD, group D, by GOLD 2017 classification ([facility]) Inhale 1 Puff by mouth in the morning. 180 Blister Dosing Unit 3 03/20/2024 Active Gabapentin 300 MG Oral Capsule (Neurontin)Indicati [...] 2 days 20 Tablet 3 08/05/2024 Active predniSONE 20 MG Oral Tablet (Deltasone) Take 4 tabs daily for 2 days, 3 tabs daily for 2 days, 2 tabs daily for 2 days, 1 tab daily for 2 days 20 Tablet 3 07/03/2024 4 Discontinue d(Refill) documented as of this encounter (statuses as of 08/05/2024) Active Problems Problem Noted Date Diagnosed Date [...] as of this encounter (statuses as of 08/05/2024) Resolved Problems Problem Noted Date Diagnosed Date Resolved Date Viral URI with cough 11/02/2023 024 Rash and nonspecific skin eruption 09/28/2021 11/27/2021 MEDICATION USE AGREEMENT 02/08/2021 COPD exacerbation 02/17/2020 03/20/2024 Overview: Per COPD GOLD Classification COPD, severe 02/02/2016 02/20/2020 Overview: 02/19 start Advair, NEED vaccines, consider pulm 01/19 PFTs-severe obstruction, partial reversible. CXR WNL documented as of this encounter (statuses as of 08/05/2024) Immunizations Name Administration Dates Next Due COVID-19 mRNA, LNP-s, No Pre serve, 2-Dose Series (adjust) 02/20/2021,02/08/2021 Pneumococcal Conjugate Vaccine, 20-valent (Prevn ar20) [...] encounter Miscellaneous Notes * Telephone Encounter - Maliha Bolton MD - 08/05/2024 5:05 PM EDTSigned Prescriptions: Disp Refills predniSONE 20 MG Oral Tablet (Deltasone) 20 Tab*3 Sig: Take 4 tabs daily for 2 days, 3 tabs daily for 2 days, 2 tabs daily for 2 days, 1 tab daily for 2 days Authorizing Provider: MALIHA BOLTON * Telephone Encounter - Yuly Viveros CPhT - 08/05/2024 3:07 PM EDT Did you pend patient's preferred pharmacy and medication before forwarding?yes Pharmacy: [id number] [facility] Pending Prescriptions: Disp Refills predniSONE 20 MG Oral Tablet (Deltasone) 20 Tab*3 Sig: Take 4 tabs daily for 2 days, 3 tabs daily for 2 days, 2 tabs daily for 2 days, 1 tab daily for 2 days Last Visit: 07/03/2024 (in office), 12/01/2022 (telemedicine) Next Visit: Visit date not found If no future appointments scheduled, and last appointment is greater than a year ago, please schedule patient for a follow-up appointment Last date the medication was ordered: 07/03/24 Is this request for a controlled substance?No Urine Drug Screen: Results for orders placed or performed in visit on 02/08/21 PAIN MANAGEMENT DRUG PANEL, URINE W/ INTERPRETATION Result Value Compliance Interpretation Based on the medication information provided: The presence of methamphetamine is INCONSISTENT with the medication information provided. The negative oxycodone/oxymorphone screen is CONSISTENT with oxycodone last taken on 02/01/2021. Confirmatory testing is available upon request. Amphetamines Screen, U Refer to confirmation results (A) Benzodiazepines Screen, U Negative Cannabinoids Screen, U Negative Cocaine Metabolite Screen, U Negative Hydrocodone Screen, U Negative Methadone Metabolite Screen, U Negative Morphine/Codeine Screen, U Negative Oxycodone Screen, U Negative Valid Interpretation Normal Creatinine, U 219 Narrative Cutoff Concentrations: Drug Level Amphetamines 500 ng/mL Benzodiazepines 100 ng/mL Cannabinoids 50 ng/mL Cocaine Metabolite 150 ng/mL Hydrocodone / Hydromorphone 100 ng/mL Methadone Metabolite 100 ng/mL Morphine / Codeine 300 ng/mL Oxycodone / Oxymorphone 100 ng/mL Screening results are presumptive and can only be used for medical purposes. Confirmatory testing is available upon request. Patient Phone Numbers Labs: Lab Results Component Value Date/Time CREAT 0.9 04/28/2023 12:10 PM CREAT 0.7 12/14/2019 03:25 PM POTASSIUM 4.6 04/28/2023 12:10 PM POTASSIUM 4.1 12/14/2019 03:25 PM TSH 1.56 04/28/2023 12:10 PM LDL 148 (H) 04/28/2023 12:10 PM ALT 23 04/28/2023 12:10 PM HGBA1C 5.5 02/12/2016 03:41 PM documented in this encounter Plan of Treatment Upcoming Encounters Date Type Department Care Team (Latest Contact Info) Description 09/05/2024 10:15 AM EDT Hospital Encounter [facility]O [facility], Endoscopy Room [facility] [address] [place] [id number] Lisa Michaels MD [address] [place] [address] 09/05/2024 10:15 AM EDT - 09/05/2024 10:45 AM EDT Surgery ENDO [facility], Endoscopy Room [facility] [address] [place] [address] Lisa Michaels MD [address] [place] [address] COLONOSCOPY FLEXIBLE PROXIMAL DIAGNOSTIC 09/12/2024 12:30 PM EST Office Visit Gastroenterology, [facility] [address] [place] [address] Kaitlin Morales CRNP [address] [place] [address] Scheduled Procedures Name Priority Associated Diagnoses Date/Ti [...] filedocumented as of this encounter Care Teams Instructional Assistant Relationship Specialty Start Date End Date Maliha Bolton MD [address] [place] [address] PCP - General Family Medicine 03/09/21 documented as of this encounter
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
--- OUTSIDE RECORDS SUMMARY | 2024-08-15 17:55 | External Medical Summary | Summary of Care ---
Author Name Unknown Organization [facility] Address [address] [place] [address] Phone [phone] Care Team Providers Care Local Driver Name Role Phone Octavio Miller MD Primary Care Provider +1 [phone] Reason for Visit * Reason Onset Date Comments Appointment 07/12/2024 Encounter Details Date Type Department Care Team (Late st Contact Info) Description 07/12/2024 Telephone Gastroenterology, [facility] [address] [place] [address] Specified, Zz No Resource [address] [place] [address] Appointment Allergies No known active allergiesdocumented as of this encounter (statuses as of 07/12/2024) Medications Medication Sig Dispensed Refills Start Date [...] ications:COPD, group D, by GOLD 2017 classification ([facility] [...] as of this encounter (statuses as of 07/12/2024) Active Problems Problem Noted Date Diagnosed Date [...] as of this encounter (statuses as of 07/12/2024) Resolved Problems Problem Noted Date Diagnosed Date Resolved Date Viral URI with cough 11/02/2023 024 Rash and nonspecific skin eruption 09/28/2021 11/27/2021 MEDICATION USE AGREEMENT 02/08/2021 COPD exacerbation 02/17/2020 03/20/2024 Overview: Per COPD GOLD Classification COPD, severe 02/02/2016 02/20/2020 Overview: 02/19 start Advair, NEED vaccines, consider pulm 01/19 PFTs-severe obstruction, partial reversible. CXR WNL documented as of this encounter (statuses as of 07/12/2024) Immunizations Name Administration Dates Next Due COVID-19 mRNA, LNP-s, No Pre serve, 2-Dose Series ([employer]) 02/20/2021,02/08/2021 Pneumococcal Conjugate Vaccine, 20-valent (Prevn ar20) [...] encounter Miscellaneous Notes * Telephone Encounter - Yudith Motley OSA - 07/12/2024 9:16 AM EDT Pt was seen in office with SPOUT POSITIONER Marika Wu and she placed and mtm referral can you please call pt to schedule new pt appt. documented in this encounter Plan of Treatment Upcoming Encounters Date Type Department Care Team (Latest Contact Info) Description 07/22/2024 7:30 AM EDT Imaging Radiology [address] 132 [facility] [place] [address] 09/05/2024 10:15 AM EDT Hospital Encounter ENDO [facility], Endoscopy Room [facility] [address] [facility] [place] [address] Lisa Michaels MD [address] [place] [address] 09/05/2024 10:15 AM EDT - 09/05/2024 10:45 AM EDT Surgery ENDO [facility], Endoscopy Room [facility] [address] [place] [phone] Lisa Michaels MD [address] [place] [address] COLONOSCOPY FLEXIBLE PROXIMAL DIAGNOSTIC 09/12/2024 12:30 PM EST Office Visit Gastroenterology, [facility] [address] [place] [address] Kaitlin Morales CRNP [address] [place] [address] Scheduled Procedures Name Priority Associated Diagnoses Date/Ti [...] filedocumented as of this encounter Care Teams Local Driver Relationship Specialty Start Date End Date Octavio Miller MD 132 [facility] [place] [address] PCP - General Family Medicine 03/09/21 documented as of this encounter
--- OUTSIDE RECORDS SUMMARY | 2024-08-15 17:55 | External Medical Summary | Summary of Care ---
Author Name Unknown Organization [facility] Address [address] [facility] [address] Phone [phone] Care Team Providers Care Accounts Payable Associate Name Role Phone Octavio Miller MD Primary Care Provider [phone] [phone] Reason for Visit * Reason Onset Date Comments Test Results 07/15/2024 Encounter Details Date Type Department Care Team (Late st Contact Info) Description 07/15/2024 [facility] 132 [facility] [place] [address] Nurse Janey Griffiths [facility] 132 [place] [address] Test Results Allergies No known active allergiesdocumented as of this encounter (statuses as of 07/15/2024) Medications Medication Sig Dispensed Refills Start Date [...] ications:COPD, group D, by GOLD 2017 classification ([facility]) Inhale 1 Puff by mouth [...] as of this encounter (statuses as of 07/15/2024) Active Problems Problem Noted Date Diagnosed Date [...] as of this encounter (statuses as of 07/15/2024) Resolved Problems Problem Noted Date Diagnosed Date Resolved Date Viral URI with cough 11/02/2023 024 Rash and nonspecific skin eruption 09/28/2021 11/27/2021 MEDICATION USE AGREEMENT 02/08/2021 COPD exacerbation 02/17/2020 03/20/2024 Overview: Per COPD GOLD Classification COPD, severe 02/02/2016 02/20/2020 Overview: 02/19 start Advair, NEED vaccines, consider pulm 01/19 PFTs-severe obstruction, partial reversible. CXR WNL documented as of this encounter (statuses as of 07/15/2024) Immunizations Name Administration Dates Next Due COVID-19 mRNA, LNP-s, No Pre serve, 2-Dose Series ([employer]) 02/20/2021,02/08/2021 Pneumococcal Conjugate Vaccine, 20-valent (Prevn ar20) [...] encounter Miscellaneous Notes * Telephone Encounter - Shireen Tapia CMA - 07/15/2024 10:41 AM EDT Pt notified of WARP SPLITTER result note and voiced understanding. * Telephone Encounter - Shireen Tapia CMA - 07/15/2024 10:37 AM EDT ----- Message from Marika Wu sent at 07/15/2024 8:54 AM EDT ----- CT of the abdomen indicating diverticulosis without evidence of diverticulitis. Patient's current stomach complaints possibly related to Augmentin. Recommend making sure that he eats prior to his dosage. documented in this encounter Plan of Treatment Upcoming Encounters Date Type Department Care Team (Latest Contact Info) Description 07/22/2024 7:30 AM EDT Imaging Radiology [facility] 132 [facility] [place] [address] 09/05/2024 10:15 AM EDT Hospital Encounter ENDO [facility], Endoscopy Room [facility] [address] [place] [phone] Lisa Michaels MD [address] [place] [address] 09/05/2024 10:15 AM EDT - 09/05/2024 10:45 AM EDT Surgery ENDO [facility], Endoscopy Room [facility] [address] [place] [phone] Lisa Michaels MD [address] [place] [address] COLONOSCOPY FLEXIBLE PROXIMAL DIAGNOSTIC 09/12/2024 12:30 PM EST Office Visit Gastroenterology, [facility] [address] [place] [address] Kaitlin Morales CRNP [address] [place] [address] Scheduled Procedures Name Priority Associated Diagnoses Date/Ti [...] 07/01/2021 DISCUSS TOBACCO CESSATION (REFER TO SMARTSET #2501) 07/09/2022 07/09/2021 COVID-19 Vaccine ( season) 2024 [...] filedocumented as of this encounter Care Teams Accounts Payable Associate Relationship Specialty Start Date End Date Octavio Miller MD [address] [place] [address] PCP - General Family Medicine 03/09/21 documented as of this encounter
--- OUTSIDE RECORDS SUMMARY | 2024-08-15 17:55 | External Medical Summary | Summary of Care ---
Author Name Unknown Organization [facility] Address [address] [place] [address] Phone [phone] Care Team Providers Care Traveling Secretary Name Role Phone Octavio Miller MD Primary Care Provider [phone] [phone] Reason for Visit * Reason Onset Date Comments Referral 07/03/2024 Encounter Details Date Type Department Care Team ([facility] st Contact Info) Description 07/03/2024 Telephone Family Practice [facility] [address] [place] [address] Octavio Miller MD [address] [place] [id number] Referral Allergies No known active allergiesdocumented as of this encounter (statuses as of 07/03/2024) Medications Medication Sig Dispensed Refills Start Date [...] D, by GOLD 2017 classification ([facility]) Inhale 1 Puff by mouth in the [...] BEFORE BEDTIME 90 Capsule 5 06/06/2024 Active Omeprazole 20 MG Oral Capsule Delayed Release (PriLOSEC)Indication s:Gastroesophageal reflux disease without esophagitis TAKE 1 CAPSULE BY MOUTH EVERY MORNING 90 Capsule 3 06/15/2024 Active Amoxicillin-Pot Clavulanate 875-125 MG Oral Tablet (Augmentin) TAKE 1 TABLET BY MOUTH TWICE A DAY FOR 11 DAYS 06/30/2024 Active documented as of this encounter (statuses as of 07/03/2024) Active Problems Problem Noted Date Diagnosed Date [...] as of this encounter (statuses as of 07/03/2024) Resolved Problems Problem Noted Date Diagnosed Date Resolved Date Viral URI with cough 11/02/2023 024 Rash and nonspecific skin eruption 09/28/2021 11/27/2021 MEDICATION USE AGREEMENT 02/08/2021 COPD exacerbation 02/17/2020 03/20/2024 Overview: Per COPD GOLD Classification COPD, severe 02/02/2016 02/20/2020 Overview: 02/19 start Advair, NEED vaccines, consider pulm 01/19 PFTs-severe obstruction, partial reversible. CXR WNL documented as of this encounter (statuses as of 07/03/2024) Immunizations Name Administration Dates Next Due COVID-19 mRNA, LNP-s, No Pre serve, 2-Dose Series ([employer]) 02/20/2021,02/08/2021 Pneumococcal Conjugate Vaccine, 20-valent (Prevn ar20) 07/25/2023 Pneumococcal Polysaccharide PPV23 (Pneumovax) Seasonal Influenza, PF, 6 M & above, IM , (FluLaval or Fluzone) 07/25/2023,08/31/2017 Seasonal Influenza, Split, IIV3, With Preserve, Inj 07/22/2010 TDAP, Age 7 and older, IM [...] encounter Miscellaneous Notes * Telephone Encounter - Janett Coulter OSA - 07/03/2024 3:19 PM EDT Pt having OV 07/11/24, will schedule at that time ELIDIA Springer 07/03/2024 3:19 PM * Telephone Encounter - Rebecca Flannery OSA - 07/03/2024 11:07 AM EDT Please call patient to schedule colonoscopy thank you documented in this encounter Plan of Treatment Upcoming Encounters Date Type Department Care Team (Late st Contact Info) Description 07/11/2024 10:00 AM EDT Office Visit Gastroenterology, [facility] [address] [place] [address] Marika Wu CRNP [address] [place] [address] 07/22/2024 7:30 AM EDT Imaging Radiology [facility] 1st [facility] [address] [place] [address] Health Maintenance Due Date Last Done Comments HIV Screening 1981 Alpha-1 Antitrypsin 1984 Hepatitis C Screening 1984 Hepatitis B Vaccine (1 of 3 - 19+ 3-dose series) 1985 Cologuard 2011 Colonoscopy 2011 Colorectal Cancer Screening 2011 Fecal Occult Blood Test 2011 Sigmoidoscopy 2011 DTap/Tdap Vaccines (2 - Td o r Tdap) 11/06/2020 11/06/2010 Zoster Vaccines (2 of 2) 10/01/2021 08/06/2021 Depression Monitoring 07/01/2022 07/01/2021 DISCUSS TOBACCO CESSATION (REFER TO SMARTSET #3291) 07/09/2022 07/09/2021 COVID-19 Vaccine (4 - 2022-2 4 season) 2023 03/10/2021, 02/20/2021, 02/08/2021 Influenza Vaccine (FLU shot) (#1) 2024 07/25/2023, 08/31/2017, 07/22/2010 O2 ASSESSMENT COMPLETED IN PAST YEAR FOR COPD 05/07/2025 05/07/2024 Lipid Panel 04/28/2028 04/28/2023 Lung Cancer Screening Completed 05/29/2023 Pneumococcal Vaccine: Pediatrics (0 to 5 Years) and At-Risk Patients (6 to 64 Years) Completed 07/25/2023, 08/31/2017 HPV (Gardasil) Vaccine Aged Out No lo nger eligible based on patient's age to complete this topic MENINGOCOCCAL (MENACTRA/MENVEO) Aged Out No longer eligible b ased on patient's age to complete this topic documented as of this encounter Medical Devices Not on filedocumented as of this encounter Care Teams Traveling Secretary Relationship Specialty Start Date End Date Octavio Miller MD [address] [place] [address] PCP - General Family Medicine 03/09/21 documented as of this encounter
--- OUTSIDE RECORDS SUMMARY | 2024-08-15 17:55 | External Medical Summary | Summary of Care ---
Author Name Unknown Organization [facility] Address [address] [place] [address] Phone [phone] Care Team Providers Care Rug Frame Mounter Name Role Phone Octavio Miller MD Primary Care Provider [phone] [phone] Reason for Visit * Reason Onset Date Comments Hospital Follow-Up 07/01/2024 [facility] Encounter Details Date Type Department Care Team (Late st Contact Info) Description 07/01/2024 Telephone [place] [address] [place] [address] Beronica Guillen, JUAN CARLOS Hospital Follow-Up ([facility]) Allergies No known active allergiesdocumented as of this encounter (statuses as of 07/02/2024) Medications Medication Sig Dispensed Refills Start Date [...] ications:COPD, group D, by GOLD 2017 classification ([facility]) Inhale 1 Puff by mouth in the morning. [address] Bl[address] Dosing [address] 3 03/20/2024 Active Albuterol Sulfate HFA 108 (90 Base) MCG/ACT Inhalation Aerosol Solution INHALE 2 PUFFS BY MOUTH EVERY 4 HOURS NEEDED FOR DYSPNEA. 8.5 g 2 05/03/2024 Active predniSONE 20 MG Oral Tablet (Deltasone) Take 4 tabs daily for 2 days, 3 tabs daily for 2 days, 2 tabs daily for 2 days, 1 tab daily for 2 days 20 Tablet 3 05/15/2024 Active Gabapentin 300 MG Oral Capsule (Neurontin)Indicatio ns:DDD (degenerative disc disease), lumbar,Lumbar radiculopathy TAKE 1 CAPSULE BY MOUTH EVERY DAY IN THE MORNING , AT NOON, AND BEFORE BEDTIME 90 Capsule 5 06/06/2024 Active Omeprazole 20 MG Oral Capsule Delayed Release (PriLOSEC)Indication s:Gastroesophageal reflux disease without esophagitis TAKE 1 CAPSULE BY MOUTH EVERY MORNING 90 Capsule 3 06/15/2024 Active documented as of this encounter (statuses as of 07/02/2024) Active Problems Problem Noted Date Diagnosed Date [...] as of this encounter (statuses as of 07/02/2024) Resolved Problems Problem Noted Date Diagnosed Date Resolved Date Viral URI with cough 11/02/2023 024 Rash and nonspecific skin eruption 09/28/2021 11/27/2021 MEDICATION USE AGREEMENT 02/08/2021 COPD exacerbation 02/17/2020 03/20/2024 Overview: Per COPD GOLD Classification COPD, severe 02/02/2016 02/20/2020 Overview: 02/19 start Advair, NEED vaccines, consider pulm 01/19 PFTs-severe obstruction, partial reversible. CXR WNL documented as of this encounter (statuses as of 07/02/2024) Immunizations Name Administration Dates Next Due COVID-19 mRNA, LNP-s, No Pre serve, 2-Dose Series ([employer]) 02/20/2021,02/08/2021 Pneumococcal Conjugate Vaccine, 20-valent (Prevn ar20) [...] encounter Miscellaneous Notes * Telephone Encounter - Beronica Guillen RN - 07/01/2024 1:19 PM EDT Transitions of Care Note Reason for Referral:Recent Admission Phone visit for follow up: [facility] #1 Admitted to: [facility], Date: 06/27/2024 Discharged to: Home, Date: 06/30/2024 Diagnosis driving hospitalization: Sigmoid Diverticulitis with Abscess Attempted Phone Call First Attempt Call Outcome Unable to Leave Message Attempted [facility]ILA - no answer. Not accepting calls at this time. Unable to leave message. Beronica Guillen RN Transitions of Care Note Reason for Referral:Recent Admission Phone visit for follow up: LEILA #2 Admitted to: [facility], Date: 06/27/2024 Discharged to: Home, Date: 06/30/2024 Diagnosis driving hospitalization: Sigmoid Diverticulitis with Abscess Attempted Phone Call Second Attempt Call Outcome Unable to Leave Message Attempted LEILA - No answer - Patient not accepting calls, unable to leave message. Tried other mobile number - invalid changed or disconnected. Myg not active. Beronica Guillen RN documented in this encounter Plan of Treatment Upcoming Encounters Date Type Department Care Team (Late st Contact Info) Description 07/03/2024 11:00 AM EDT Office Visit Family Practice [facility] [address] [place] [address] Octavio Miller MD [address] [place] [address] 07/11/2024 10:00 AM EDT Office Visit Gastroenterology, [facility] [address] [place] [address] Marika Wu, BLANCA [address] [place] [address] 07/22/2024 7:30 AM EDT Imaging Radiology [address], [place] [address] [place] [address] Health Maintenance Due Date Last Done Comments [...] filedocumented as of this encounter Care Teams Rug Frame Mounter Relationship Specialty Start Date End Date Octavio Miller MD [address] [place] [address] PCP - General Family Medicine 03/09/21 documented as of this encounter
--- OUTSIDE RECORDS SUMMARY | 2024-08-15 17:55 | External Medical Summary | Summary of Care ---
Author Name Unknown Organization [facility] Address [address] [place] [address] Phone [phone] Care Team Providers Care Concrete Polisher Name Role Phone Octavio Miller MD Primary Care Provider +1 -[phone] Reason for Visit * Reason Onset Date Comments Referral 07/03/2024 Encounter Details Date Type Department Care Team ([facility] st Contact Info) Description 07/03/2024 Telephone Family Practice [facility] [address] [place] [address] Octavio Miller MD [address] [place] [id number] Referral Allergies No known active allergiesdocumented as [...] ications:COPD, group D, by GOLD 2017 classification ([facility]) Inhale 1 Puff by mouth in [...] mRNA, LNP-s, No Pre serve, 2-Dose Series ([employer]) 02/20/2021,02/08/2021 Pneumococcal Conjugate Vaccine, 20-valent (Prevn ar20) [...] encounter Miscellaneous Notes * Telephone Encounter - Rebecca Flannery OSA - 07/03/2024 11:07 AM EDT Please call patient to schedule colonoscopy thank you documented in this encounter Plan of Treatment Upcoming Encounters Date Type Department Care Team (Late st Contact Info) Description 07/11/2024 10:00 AM EDT Office Visit Gastroenterology, [facility] [address] [place] [address] Marika Wu CRNP [address] [place] [address] 07/22/2024 7:30 AM EDT Imaging Radiology [address] [place] [address] Health Maintenance Due Date Last Done Comments [...] filedocumented as of this encounter Care Teams Concrete Polisher Relationship Specialty Start Date End Date Octavio Miller MD [address] [place] [address] PCP - General Family Medicine 03/09/21 documented as of this encounter
--- OUTSIDE RECORDS SUMMARY | 2024-08-15 17:55 | External Medical Summary | Summary of Care ---
Author Name Unknown Organization [facility] Address [address] [facility] [place] [address] Phone [phone] Care Team Providers Care Women'S Basketball Coach Name Role Phone Octavio Miller MD Primary Care Provider +1 -[phone] Reason for Visit * Reason Onset Date Comments FYI 04/12/2024 Encounter Details Date Type Department Care Team (Late st Contact Info) Description 04/12/2024 Telephone Family Practice [facility] [address] [place] [id number] Octavio Miller MD [address] [place] [address] FYI Allergies No known active allergiesdocumented as of [...] D, by GOLD 2017 classification ([facility]) Inhale 1 Puff by mouth in the morning. 180 Blister Dosing Unit 3 03/20/2024 Active documented as of this encounter (statuses [...] 07/01/2021 DDD (degenerative disc disease), lumbar 03/20/20 Overview: L3-L4 MRI on 03/18/17 Tobacco use [...] encounter Miscellaneous Notes * Telephone Encounter - Heather Briones OSA - 04/12/2024 2:40 PM EDT [facility] does not write letters to [employer] on behalf of patients. Utility companies offer special payment plans/arrangements, should the need arise. You should contact your utility company directly to discuss your situation. The attached link offers useful information for consumers needing assistance:Utility Assistance Programs Pt also wants a call back to talk about MRI documented in this encounter Plan of Treatment Upcoming Encounters Date Type Department Care Team (Latest Contact Info) Description 07/22/2024 7:30 AM EDT Imaging Radiology [address] 132 [facility] [place] [address] 09/05/2024 10:15 AM EDT Hospital Encounter ENDO [facility], Endoscopy Room [facility] [address] [place] [phone] Lisa Michaels MD [address] [place] [address] 09/05/2024 10:15 AM EDT - 09/05/2024 10:45 AM EDT Surgery ENDO [facility], Endoscopy Room [facility] 132 [facility] [place] [address] Lisa Michaels MD [address] [place] [address] COLONOSCOPY FLEXIBLE PROXIMAL DIAGNOSTIC 09/12/2024 12:30 PM EST Office Visit Gastroenterology, [facility] 132 [facility] [place] [address] Kaitlin Morales CRNP [address] [place] [address] Scheduled Procedures Name Priority Associated Diagnoses Date/Ti [...] filedocumented as of this encounter Care Teams Women'S Basketball Coach Relationship Specialty Start Date End Date Octavio Miller MD [address] [place] [address] PCP - General Family Medicine 03/09/21 documented as of this encounter
--- OUTSIDE RECORDS SUMMARY | 2024-08-15 17:55 | External Medical Summary | Summary of Care ---
Author Name Unknown Organization [facility] Address [address] [place] [address] Phone [phone] Care Team Providers Care Toe Closing Machine Tender Name Role Phone Octavio Miller MD Primary Care Provider [phone] Reason for Referral * Ancillary Services (Within 30 days (routine)) - Pending Review Specialty Diagnoses / Procedures Referred By Sujatha t Referred To Contact Gastroenterology Diagnoses Diverticulosis of large intestine without hemorrhage Octavio Miller MD [address] [place] [address] Referral ID Status Reason Start Date Expiration Date Visits Requested Visits Authorized [id number] Pending Review Ancillary Services Required 07/03/[phone] Question Answer Referral Priority Within 30 days (routine) Where should this appointment be scheduled? [facility] Comments ALERT: Do not order for pediatric patients (18 years or younger). Cancel off screen and order PEDS GASTROENTEROLOGY CONSULT (Type: 1 visit only-Evaluate and Treat) The following Pt. Instructions are available: - Gastro Colonoscopy Prep Instructions [40455] - Gastro Colonoscopy Prep Instructions (Yemeni Version) [[id number]] Go to the Pt. Instructions section within the Visit Navigator to access. Colonoscopy ASGE Guidelines: Hx of diverticulitis ADDITIONAL INFORMATION 1. Is the patient on Coumadin? No 2. Is the patient on Pradaxa? No Reason for Visit * Reason Onset Date Comments Hospital Follow-Up Pt here for h ospital follow up Hospital Follow-Up 07/03/2024 Encounter Details Date Type Department Care Team (Latest Contact Info) Description 07/03/2024 11:00 AM EDT Office Visit Family [facility] [address] [place] [address] Octavio Miller MD [address] [place] [address] Hospital discharge follow-up*; Diverticulosis of large intestine without hemorrhage; COPD, group D, by GOLD 2017 classification ([facility]) Allergies No known active allergiesdocumented as of [...] ndications:COPD, group D, by GOLD 2017 classification ([facility]) Inhale 1 Puff by mouth in [...] BEFORE BEDTIME 90 Capsule 5 4 Active Omeprazole 20 MG Oral Capsule Delayed Release (PriLOSEC)Indicatio ns:Gastroesophageal reflux disease without esophagitis TAKE 1 CAPSULE BY MOUTH EVERY MORNING 90 Capsule 3 4 Active Amoxicillin-Pot Clavulanate 875-125 MG Oral Tablet (Augmentin) TAKE 1 TABLET BY MOUTH TWICE A DAY FOR 11 DAYS 4 Active predniSONE 20 MG Oral Tablet (Deltasone) Take 4 tabs daily for 2 days, 3 tabs daily for 2 days, 2 tabs daily for 2 days, 1 tab daily for 2 days 20 Tablet 3 4 Active predniSONE 20 MG Oral Tablet (Deltasone) Take 4 tabs daily for 2 days, 3 tabs daily for 2 days, 2 tabs daily for 2 days, 1 tab daily for 2 days 20 Tablet 3 4 07/03/20 24 Discontinued documented as of this encounter [...] mRNA, LNP-s, No Pre serve, 2-Dose Series ([employer]) 02/20/2021,02/08/2021 Pneumococcal Conjugate Vaccine, 20-valent (Prevn ar20) [...] Sign Reading Time Taken Comments Blood Pressure 98/68 07/03/2024 10:57 AM EDT Pulse 84 07/03/2024 10:57 AM EDT Temperature 36.4 C (97.6 F) 07/03/2024 10:57 AM E DT Respiratory Rate 18 07/03/2024 10:57 AM EDT Oxygen Saturation - - Inhaled Oxygen Concentration - - Weight 76.2 kg (168 lb) 07/03/2024 10:57 AM EDT Height 172.7 cm (5' 8") 07/03/2024 10:57 AM EDT Body Mass Index 25.54 07/03/2024 10:57 AM EDT documented in this encounter Patient Instructions * Patient Instructions* Octavio Miller MD - 07/03/2024 11:03 AM EDT Taking Medicine Safely Medicine is given to help treat or prevent illness. But if you don't take it correctly, it might not help. It might even harm you. Your doctor or pharmacist can help you learn the right way to take your medicine. Listed below are some tips to help you take medicine safely. Safety Tips Have a routine for taking each medicine. Make it part of something you do each day, such as brushing your teeth or eating a meal. When you go to the hospital or your doctor's office, bring all your current medicines in their original boxes or bottles. If you can't do that, bring an up-to-date list of your medicines. Do not stop taking a prescription medicine unless your doctor tells you to. Doing so could make your condition worse. Do not share medicines. Let your doctor and pharmacist know of any allergies you have. Taking prescription medicines with alcohol, street drugs, herbs, supplements, or even some rvzu-zod-bsbsssm medicines can be harmful. Talk to your doctor or pharmacist before using any of these things while taking a prescription medicine. When filling your prescriptions, try using the same pharmacy for all your medicines. If not, let the pharmacist know what medicines you are already on. Keep medicines out of the reach of children and pets. Do not use medicine that has or that doesn't look or smell right. Get rid of it properly. To find out the right way to get rid of medicine: Call your [facility] government's household trash and recycling service and ask if a drug take-back program is available in your community. Call your local pharmacy and ask the right way to get rid of the medicine. Go to http://www.fda.gov/ForConsumers/ConsumerUpdates/ort473422 to learn how to get rid of medicines safely. Using Generic Medicines Medicines have brand names and generic (chemical) names. When a medicine is first made, it is sold only under its brand name. Later, it can be made and sold as a generic. Generic medicines cost less than brand-name medicines and most work just as well. Most people can use the generic medicine instead of the brand-name medicine, unless their doctor says otherwise. [address] [place] [address]. All rights reserved. This information is not intended as a substitute for professional medical care. Always follow your healthcare professional's instructions. Coping with Your Diagnosis of a Chronic Health Condition If you have a chronic health condition, you have a problem that may not go away over time. Heart disease, asthma, arthritis, and diabetes are just a few of the chronic conditions that exist. Right now, these conditions have no known cure. But you can take an active role in managing your health. Coping with Your Diagnosis If you've just learned about your health condition, you may be angry, depressed, or afraid. Or you might feel relieved just to know what's wrong. Even if you've known about your health problem for a while, adjusting to it can be hard. But learning about your condition can help you cope. Look for books at your local library. If you have access to a computer, check the Internet. Or contact a group that focuses on your specific problem. Accepting Change Change is hard for most people. Yet right now you may be facing many changes. What you eat or the way you work may change. Your moods, and even your symptoms, might vary from day to day. Although it isn't easy, learning to accept change can help you feel more in control. Taking Control Feeling you have control can make living with your condition easier. Discuss treatment options withyour health care provider. The more you know, the more active you can be in your care. Moving Forward You may wonder whether you will be able to do the things you've always done. That depends on your age, the condition you have, and your goals. To make the most of each day, try to build caring relationships, be active, and eat right. Also, do your best to [place] [address]. All rights reserved. This information is not intended as a substitute for professional medical care. Always follow your healthcare professional's instructions. Taking an Active Role in Your Medicines Take the time to learn about your medicine. For instance, why are you taking it? What does it do? Work with your doctor or other health care providers to get the answers you need. Talk to your pharmacist about how to take each medicine, and ask for a fact sheet on each one. Ask Questions About Your Medicine What is the name of the medicine? Why do I need to take it? When should I take it? How should I take it: with water? with food? on an empty stomach? How much do I take? What do I do if I miss a dose? What side effects could it cause and which ones should I call the doctor about? Are there any foods or medicines I should avoid while taking this medicine? Keeping track of your medications? Name of medicine: Taken for: Dose: Time(s) to take it: Take an Active Role Fill all your prescriptions at the same pharmacy. This keeps your medicine history in one place. Talk to the pharmacist. Make sure you understand how to take each medicine. Ask for a fact sheet about each one. Tell your doctor and pharmacist about all the prescription and usxe-suc-ibdmvjq medicines you take.This includes vitamins and herbal remedies. Tell your doctor and pharmacist if you have any medical conditions or allergies to any medicine or food, or if you are or . Keep a list of all your medicines. Use the sample to the right as a guide for the type of information [place] [address]. All rights reserved. This information is not intended as a substitute for professional medical care. Always follow your healthcare professional's instructions. documented in this encounter Progress Notes * Octavio Miller MD - 07/03/2024 11:03 AM EDT SUBJECTIVE: Beverly Fermin is a 58 year old male. Chief Complaint Patient presents with Hospital Follow-Up Pt here for hospital follow up Hospital Follow-Up Recent Admission: Patient was recently admitted to [facility]. The date of discharge was 06/28/24. Discharge report receivedand reviewed. HPI: Patient was admitted for diverticulitis with abscess. Surgery was consulted. No surgical intervention was needed and he was treated with antibiotics. This is his first bout of diverticulitis. Will need a colonoscopy in 6-8 weeks. Has GI visit scheduled next week. Finishing up his antibiotics ov er the next few days. No fevers/chills. Patient Active Problem List Diagnosis Tobacco use DDD (degenerative disc disease), lumbar Current mild episode of major depressive disorder (HCC) Gastroesophageal reflux disease without esophagitis COPD, group D, by GOLD 2017 classification ([facility]) History of pneumothorax Diverticulosis of large intestine without hemorrhage Current Outpatient Medications Medication Sig Dispense Refill Triamcinolone Acetonide 0.5 % External Cream Apply topically to affected area 2 times a day. To affected area. 60 g 0 Compressor Nebulizer Inhale via nebulizer. Use as directed. 1 Each 1 Albuterol Sulfate (2.5 MG/3ML) 0.083% Inhalation Nebulization Solution (Proventil) Inhale 1 Vial via nebulizer in the morning and 1 Vial at noon and 1 Vial in the evening and 1 Vial before bedtime. 225 mL 1 guaiFENesin ER 600 MG Oral Tablet Extended Release 12 Hour (Mucinex) Take 2 Tablets by mouth in themorning and 2 Tablets before bedtime. Take with plenty of water. Do not cut, crush or chew. 120 Tablet 2 Ondansetron HCl 4 MG Oral Tablet Take 1 Tablet by mouth every 6 hours as needed for Nausea. 20 Tablet 0 Rosuvastatin Calcium 10 MG Oral Tablet (Crestor) Take 1 Tablet by mouth daily. 90 Tablet 3 Trelegy Ellipta 200-62.5-25 MCG/ACT Aerosol Powder Breath Activated (Osruqdrelcr-Rhrwngoulcsh-Jigrvbbuds) Inhale 1 Puff by mouth in the morning. 180 Blister Dosing Unit 3 Albuterol Sulfate HFA 108 (90 Base) MCG/ACT Inhalation Aerosol Solution INHALE 2 PUFFS BY MOUTH EVERY 4 HOURS NEEDED FOR DYSPNEA. 8.5 g 2 Gabapentin 300 MG Oral Capsule (Neurontin) TAKE 1 CAPSULE BY MOUTH EVERY DAY IN THE MORNING , AT NOON, AND BEFORE BEDTIME 90 Capsule 5 Omeprazole 20 MG Oral Capsule Delayed Release (PriLOSEC) TAKE 1 CAPSULE BY MOUTH EVERY MORNING 90 Capsule 3 Amoxicillin-Pot Clavulanate 875-125 MG Oral Tablet (Augmentin) TAKE 1 TABLET BY MOUTH TWICE A DAY FOR 11 DAYS predniSONE 20 MG Oral Tablet (Deltasone) Take 4 tabs daily for 2 days, 3 tabs daily for 2 days, 2 tabs daily for 2 days, 1 tab daily for 2 days 20 Tablet 3 No current facility-administered medications for this visit. Current and discharge medications have been reconciled. Review of patient's allergies indicates: No Known Allergies OBJECTIVE: BP 98/68 | Pulse 84 | Temp 36.4 C (97.6 F) (Tympanic) | Resp 18 | Ht 1.727 m (5' 8") | Wt 76.2 kg (168 lb) | BMI 25.54 kg/m | BSA 1.91 m PHYSICAL EXAM: General: alert, healthy, and no distress Neck: supple, no adenopathy, no bruits, thyroid normal size, non-tender, without nodularity Heart: regular rate & rhythm, no murmur, and no gallops Lungs: chest symmetric with normal AP diameter, no chest deformities noted, no chest wall tenderness, lungs clear to auscultation Abdomen: abdomen soft, non-tender, normal bowel sounds, and no masses or organomegaly Extremities: less than 2 second capillary refill, no joint deformities, effusion, or inflammation ASSESSMENT: Hospital discharge follow-up (Primary) - DISCH MED RECON CUR MED LIS Diverticulosis of large intestine without hemorrhage - COLONOSCOPY, GI REFERRAL OP COPD, group D, by GOLD 2017 classification ([facility]) Other orders - predniSONE 20 MG Oral Tablet (Deltasone); Take 4 tabs daily for 2 days, 3 tabs daily for 2 days, 2 tabs daily for 2 days, 1 tab daily for 2 days Follow Up: Return if symptoms worsen or fail to improve, for needs colonoscopy in 6-8 weeks per gensurg recommendation. | For: needs colonoscopy in 6-8 weeks per gen surg recommendation PLAN: Continue present medication(s): Follow up as needed. I spent a total of 20-29 minutes (exact time 21 mins) minutes on the date of service in preparation, delivery, and documentation of the care provided to Beverly Fermin excluding any time spent in performance of separately billed services. Octavio Miller MD documented in this encounter Nursing Notes * Aissatou Rivera LPN - 07/03/2024 10:56 AM EDT The patient has been properly identified by confirmation of name and date of . Chief Complaint Patient presents with Hospital Follow-Up Pt here for hospital follow up documented in this encounter Plan of Treatment Upcoming Encounters Date Type Department Care Team (Late st Contact Info) Description 07/11/2024 10:00 AM EDT Office Visit Gastroenterology, [facility] [address] [facility] [place] [address] Marika Wu CRNP [address] [facility] [place] [address] 07/22/2024 7:30 AM EDT Imaging Radiology [facility] [address] [facility] [place] [address] Scheduled Referrals Name Type Priority Associated Diagnoses Orde r Schedule COLONOSCOPY, GI REFERRAL OP Referral Within 30 days (routine) Diverticulosis of large intestine without hemorrhage Ordered: 07/03/2024 Health Maintenance Due Date Last Done Comments [...] 07/01/2021 DISCUSS TOBACCO CESSATION (REFER TO SMARTSET #[id number]) 07/09/2022 07/09/2021 COVID-19 Vaccine (4 - 2022-2 [...] as of this encounter Visit Diagnoses Diagnosis Hospital discharge follow-up- Primary Other follow-up examination Diverticulosis of large intestine without hemorrhage COPD, group D, by GOLD 2017 classification (HCC) documented in this encounter Care Teams Toe Closing Machine Tender Relationship Specialty Start Date End Date Octavio Miller MD [address] [place] [address] PCP - General Family Medicine 03/09/21 documented as of this encounter
--- OUTSIDE RECORDS SUMMARY | 2024-08-15 17:56 | External Medical Summary | Summary of Care ---
Author Name Unknown Organization [facility] Address [address] [place] [address] Phone [phone] Care Team Providers Care Deputy Coroner Investigator Name Role Phone Octavio Miller MD Primary Care Provider [phone] Reason for Visit * Reason Onset Date Comments Hospital Follow-Up 07/01/2024 LEILA Encounter Details Date Type Department Care Team (Late st Contact Info) Description 07/01/2024 Telephone [facility] [address] [place] [address] Beronica Guillen, JUAN CARLOS Hospital Follow-Up (LEILA) Allergies No known active allergiesdocumented as of this encounter (statuses as of 07/01/2024) Medications Medication Sig Dispensed Refills Start Date [...] ications:COPD, group D, by GOLD 2017 classification ([facility] [...] as of this encounter (statuses as of 07/01/2024) Active Problems Problem Noted Date Diagnosed Date History of pneumothorax 03/09/2023 COPD, group D, by GOLD 2017 classification 10/18 Overview: Per COPD GOLD Classification Gastroesophageal reflux disease without esophagi tis 07/09/2021 Current mild episode of major depressive disorde r 07/01/2021 DDD (degenerative disc disease), lumbar 03/20/20 17 Overview: L3-L4 MRI on 03/18/17 Tobacco use 02/12/2016 documented as of this encounter (statuses as of 07/01/2024) Resolved Problems Problem Noted Date Diagnosed Date Resolved Date Viral URI with cough 11/02/2023 024 Rash and nonspecific skin eruption 09/28/2021 11/27/2021 MEDICATION USE AGREEMENT 02/08/2021 COPD exacerbation 02/17/2020 03/20/2024 Overview: Per COPD GOLD Classification COPD, severe 02/02/2016 02/20/2020 Overview: 02/19 start Advair, NEED vaccines, consider pulm 01/19 PFTs-severe obstruction, partial reversible. CXR WNL documented as of this encounter (statuses as of 07/01/2024) Immunizations Name Administration Dates Next Due COVID-19 mRNA, LNP-s, No Pre serve, 2-Dose Series ([employer]) 02/20/2021,02/08/2021 Pneumococcal Conjugate Vaccine, 20-valent (Prevn ar20) [...] Guillen RN - 07/01/2024 1:19 PM EDT Images from the original note were not included. Transitions of Care Note Reason for Referral:Recent Admission Phone visit for follow up: LEILA #1 Admitted to: [facility], Date: 06/27/2024 Discharged to: Home, Date: 06/30/2024 Diagnosis driving hospitalization: Sigmoid Diverticulitis with Abscess Attempted Phone Call First Attempt Call Outcome Unable to Leave Message Attempted LEILA - no answer. Not accepting calls at this time. Unable to leave message. Beronica Guillen RN documented in this encounter Plan of Treatment Upcoming Encounters Date Type Department Care Team (Late st Contact Info) Description 07/03/2024 11:00 AM EDT Office Visit Family Practice [facility] [address] [place] [address] Octavio Miller MD [address] [place] [address] 07/11/2024 10:00 AM EDT Office Visit Gastroenterology, [facility] [address] [place] [address] Marika Wu CRNP [address] [place] [address] 07/22/2024 7:30 AM EDT Imaging Radiology [facility] [address] [place] [address] Health Maintenance Due Date Last Done Comments HIV Screening 1981 Alpha-1 Antitrypsin 1984 Hepatitis C Screening 1984 Hepatitis B Vaccine (1 of 3 - 19+ 3-dose series) 1985 Cologuard 2011 Colonoscopy 2011 Colorectal Cancer Screening 2011 Fecal Occult Blood Test 2011 Sigmoidoscopy 2011 DTaP,Tdap,and Td Vaccines (2 - Td or Tdap) 11/06/2020 [...] filedocumented as of this encounter Care Teams Deputy Coroner Investigator Relationship Specialty Start Date End Date Octavio Miller MD [address] [place] [address] PCP - General Family Medicine 03/09/21 documented as of this encounter
[2024-08-15] MEDS: BUDESONIDE 0.5 MG/2 ML VIAL (PULMICORT) NEB SCH (19:35)
[2024-08-15] MEDS: guaiFENesin 600 MG TABCR PO SCH (22:27)
[2024-08-16 03:56] LABS: Base Excess ABG 3.7 mEq/L (-9-1.8); HCO3 ABG 29 mmol/L (19-24); Oxygen Saturation ABG 98.8 % (90-95); PCO2 ABG 43 mmHg (35-46); PO2 ABG 122 mmHg (80-95); pH ABG 7.43 (7.35-7.45)
[2024-08-16 03:59] LABS: Allen Test Pos (Pos)
[2024-08-16 06:22] LABS: Hematocrit (blood only) 41.4 % (42.0-52.0); Hemoglobin 14.2 g/dl (14.0-18.0); Mean Corpuscular Hemoglobin 31.3 pg (25.0-34.0); Mean Corpuscular Hgb Conc 34.3 g/dL (32.0-36.0); Mean Corpuscular Volume 91.4 fL (80.0-100.0); Mean Platelet Volume 9.9 fL (9.4-12.4); Platelet Count 251 K/uL (130-400); RDW Standard Deviation 47.1 fL (36.4-46.3); Red Blood Count 4.53 M/uL (4.70-6.10); White Blood Count 13.88 K/ul (4.8-10.8)
[2024-08-16 06:47] LABS: Basophils # (auto) 0.01 K/uL (0.00-0.20); Basophils % (auto) 0.1 %; Immature Granulocytes # (auto) 0.07 K/uL (0.01-0.20); Immature Granulocytes % (auto) 0.5 %; Lymphocytes # (auto) 0.56 K/uL (1.20-3.40); Monocytes # (auto) 0.32 K/uL (0.11-0.59); Monocytes % (auto) 2.3 %; Neutrophils # (auto) 12.92 K/uL (1.40-6.50); Neutrophils % (auto) 93.1 %
[2024-08-16 06:48] LABS: Albumin Globulin Ratio 1.5 (0.9-2); BUN Creatinine Ratio 36.2 (10-20); Bilirubin,Total 0.7 mg/dl (0.2-1.0); Creatinine Clr Calc Pharmacy 114.3 ml/min; Globulin 2.6 gm/dl (2.5-4.0); Phosphorus 3.8 mg/dl (2.5-4.9); Potassium 4.2 mmol/L (3.5-5.1); Total Protein 6.6 gm/dl (6.0-8.3)
[2024-08-16 06:58] LABS: Troponin I High Sensitivity 20.3 pg/ml (0-20)
[2024-08-16 07:08] LABS: Estimated Average Glucose 169 mg/dl; Hemoglobin A1C 7.5 % (4.5-5.6)
--- NOTE | 2024-08-16 08:00 | Hospitalist Progress Note ---
Date of Service August 16, 2024 Assessment & Plan (1) Rhinovirus infection: (2) Respiratory acidosis: (3) Acute hypoxic respiratory failure: (4) Elevated troponin: Plan Beverly Fermin is a 58y/o M with PMHx significant for severe COPD with emphysema, HLD, GERD, diverticulitis, DDD, major depressive disorder, tobacco use disorder and chronic back pain who presented to the ED via EMS secondary to worsening SOB/dyspnea and was found to be in acute hypoxic respiratory failure on arrival. Enterovirus/Rhinovirus Infection & Respiratory Acidosis Acute Hypoxic Respiratory Failure ISO Severe COPD w/ Emphysema : Patient's O2 sat was 88% on arrival to the ED. He was subsequently placed on BiPAP with improvement in his breathing. WBC 22.77k, RVP positive for entero-/rhinovirus. VBG showed respiratory acidosis with a pH of 7.27 and pCO2 of 71. CXR showed advanced emphysema with no active disease. Chest CTA 1. No pulmonary emboli identified. 2. Advanced emphysema with bronchitis and bibasilar mucous plugging. Procalcitonin negative, BNP 91. Lactate negative. S/p 2g IV Rocephin, 125mg IV Solu-Medrol and hour-long albuterol neb in the ED. Will continue IV Rocephin 2g Q24H, oral doxycycline added on as well. Pulmonology consulted. Pulmonary toilet with incentive spirometry, flutter valve and scheduled nebs. 40mg IV Solu-Medrol Q8H. Blood culture pending. Aspiration and contact precautions. Wean off BiPAP as tolerated. -> currently on suppl. O2 via [place] Patient will ultimately need close pulmonology follow-up at time of discharge. He has not seen [facility] since 07/2021. Continue home Trelegy. Encourage smoking cessation. Denies need for nicotine patch at this time. Elevated Troponin: Troponin elevated at 44.8 on arrival, likely reactive secondary to respiratory status, demand ischemia Initial EKG showed baseline artifact but no obvious acute ST changes. Continuous cardiac monitoring in place. Echo obtained - No regional wall motion abnormalities noted. LV is hyperdynamic. LVEF 65 to 70%. RV is normal in size and function. Doppler findings do not suggest pulmonary hypertension. Other Chronic Medical Conditions: HLD, GERD, chronic back pain and seasonal allergies --> Can continue home medications for these specific conditions. DVT Prophylaxis: SQ Lovenox Code Status: FULL CODE PCP: Octavio Miller MD Disposition: PCU/Telemetry Admission and Anticipated Discharge Date Admission Date: August 15, 2024 Subjective Pt seen in follow up of hypoxic resp. failure, hx of COPD, now posit for entero/rhinovirus + Accessory muscle use on admission Was placed on Bipap in ER, pulm. consulted Currently laying in bed in NAD On supplemental oxygen, 3 L, in NAD, able to converse Discussed with RN, patient had severe dyspnea on exertion just walking to the bathroom, and was placed on 5 L Pt denies any chest pain, fever, chills, abd. pain, nausea, vomiting A1c elevated - ? new dg. of DM Review of Systems Review of Systems: All systems reviewed & are unremarkable except as noted in Subjective Physical Exam Physical Exam: General Appearance: well nourished M in no apparent distress, on suppl. O2 Head: normocephalic, Atraumatic Eyes: normal inspection, EOMI Neck: supple Respiratory/Chest: Decreased coarse breath sounds, + wheezing, rhonchi, NO accessory muscle use Cardiovascular: S1, S2, No murmur Abdomen/GI:Soft, Non tender, Bowel sounds present Extremities/Musculoskeletal:normal inspection, trace pedal edema Neurologic/Psych:AAOX3, grossly no focal neurological deficits Skin: warm, dry Results & Data Results & Data Vital Signs (Past 12 Hours) Vital Signs Temp Pulse Pulse Resp BP Pulse Ox O2 Del Method 08/16/24 07:39 71 16 94 08/16/24 07:39 63 16 94 BiPAP 08/16/24 06:33 69 08/16/24 04:02 72 16 95 08/16/24 03:16 36.5 C 63 18 106/80 96 BiPAP 08/16/24 00:53 84 16 94 BiPAP 08/15/24 23:00 85 14 95 08/15/24 22:30 BiPAP 08/15/24 22:15 36.5 C 74 18 111/75 BiPAP 08/15/24 21:47 80 08/15/24 20:00 36.5 C 92 H 18 122/85 90 BiPAP FiO2 08/16/24 07:39 30 08/16/24 07:39 30 08/16/24 06:33 08/16/24 04:02 30 08/16/24 03:16 08/16/24 00:53 30 08/15/24 23:00 30 08/15/24 22:30 08/15/24 22:15 08/15/24 21:47 08/15/24 20:00 Laboratory Results 08/16/24 08/16/24 08/15/24 Range/Units 06:04 03:50 21:04 WBC 13.88 H (4.8-10.8) K/ul RBC 4.53 L (4.70-6.10) M/uL Hgb 14.2 (14.0-18.0) g/dl Hct 41.4 L (42.0-52.0) % MCV 91.4 (80.0-100.0) fL MCH 31.3 (25.0-34.0) pg MCHC 34.3 (32.0-36.0) g/dL RDW Std Deviation 47.1 H (36.4-46.3) fL RDW Coeff of Mirtha 14.0 (11.5-14.5) % Plt Count 251 (130-400) K/uL MPV 9.9 (9.4-12.4) fL Immature Gran % (Auto) 0.5 % Neut % (Auto) 93.1 % Lymph % (Auto) 4.0 % Phelps % (Auto) 2.3 % Eos % (Auto) 0.0 % Baso % (Auto) 0.1 % Neut # (Auto) 12.92 H (1.40-6.50) K/uL Lymph # (Auto) 0.56 L (1.20-3.40) K/uL Phelps # (Auto) 0.32 (0.11-0.59) K/uL Eos # (Auto) 0.00 (0.00-0.50) K/uL Baso # (Auto) 0.01 (0.00-0.20) K/uL Immature Gran # (Auto) 0.07 (0.01-0.20) K/uL PT INR APTT PTT Ratio ABG pH 7.43 (7.35-7.45) ABG pCO2 43 (35-46) mmHg ABG pO2 122 H (80-95) mmHg ABG HCO3 29 H (19-24) mmol/L ABG O2 Saturation 98.8 H (90-95) % ABG Base Excess 3.7 H (-9-1.8) mEq/L Bucky Test Pos (Pos) VBG pH (7.36-7.41) VBG pCO2 (38-50) mmHg VBG pO2 mmHg VBG HCO3 mmol/L VBG O2 Saturation % VBG Base Excess mEq/L Oxygen Given 30% FIO2 Sodium 138 (136-145) mmol/L Potassium 4.2 (3.5-5.1) mmol/L Chloride 102 (98-107) mmol/L Carbon Dioxide 28 (21-32) mmol/L Anion Gap 8 (3-11) BUN 25 H (6-23) mg/dl Creatinine 0.69 (0.6-1.4) mg/dl Est Cr Clr Drug Dosing 114.3 ml/min eGFR 107.94 BUN/Creatinine Ratio 36.2 H (10-20) Glucose 164 H (70-99(Fasting)) mg/dl Estimat Average Glucose 169 mg/dl Hemoglobin A1c 7.5 H (4.5-5.6) % Lactate (0.4-2.0) mmol/L Calcium 9.0 (8.6-10.3) mg/dl Phosphorus 3.8 (2.5-4.9) mg/dl Magnesium 2.0 (1.7-2.4) mg/dl Total Bilirubin 0.7 (0.2-1.0) mg/dl AST 17 (13-39) U/L ALT 34 (7-52) U/L Alkaline Phosphatase 50 (34-104) U/L Troponin I High Sens 20.3 H D 46.9 H D (0-20) pg/ml B-Natriuretic Peptide (0-100) pg/ml Total Protein 6.6 (6.0-8.3) gm/dl Albumin 4.0 (3.4-5.0) gm/dl Globulin 2.6 (2.5-4.0) gm/dl Albumin/Globulin Ratio 1.5 (0.9-2) Procalcitonin (0-0.5) ng/ml Adenovirus (PCR) (NotDetected) B. pertussis DNA (PCR) (NotDetected) B.parapertussis DNA PCR (NotDetected) C. pneumoniae DNA (PCR) (NotDetected) Coronavirus OC43 (PCR) (NotDetected) Coronavirus HKU1 (PCR) (NotDetected) Coronavirus 229E (PCR) (NotDetected) SARS-CoV-2 (PCR) (NotDetected) Coronavirus NL63 (PCR) (NotDetected) Human Metapneumovir PCR (NotDetected) Influenza Type A (PCR) (NotDetected) Influenza Type B (PCR) (NotDetected) M. pneumoniae (PCR) (NotDetected) Parainfluenza 1 (PCR) (NotDetected) Parainfluenza 2 (PCR) (NotDetected) Parainfluenza 3 (PCR) (NotDetected) Parainfluenza 4 (PCR) (NotDetected) RSV (PCR) (NotDetected) Entero/Rhino (PCR) (NotDetected) 08/15/24 08/15/24 08/15/24 Range/Units 15:15 11:50 10:29 WBC (4.8-10.8) K/ul RBC (4.70-6.10) M/uL Hgb (14.0-18.0) g/dl Hct (42.0-52.0) % MCV (80.0-100.0) fL MCH (25.0-34.0) pg MCHC (32.0-36.0) g/dL RDW Std Deviation (36.4-46.3) fL RDW Coeff of Mirtha (11.5-14.5) % Plt Count (130-400) K/uL MPV (9.4-12.4) fL Immature Gran % (Auto) % Neut % (Auto) % Lymph % (Auto) % Phelps % (Auto) % Eos % (Auto) % Baso % (Auto) % Neut # (Auto) (1.40-6.50) K/uL Lymph # (Auto) (1.20-3.40) K/uL Phelps # (Auto) (0.11-0.59) K/uL Eos # (Auto) (0.00-0.50) K/uL Baso # (Auto) (0.00-0.20) K/uL Immature Gran # (Auto) (0.01-0.20) K/uL PT 10.5 INR 1.0 APTT 23 PTT Ratio 0.9 ABG pH (7.35-7.45) ABG pCO2 (35-46) mmHg ABG pO2 (80-95) mmHg ABG HCO3 (19-24) mmol/L ABG O2 Saturation (90-95) % ABG Base Excess (-9-1.8) mEq/L Bucky Test (Pos) VBG pH (7.36-7.41) VBG pCO2 (38-50) mmHg VBG pO2 mmHg VBG HCO3 mmol/L VBG O2 Saturation % VBG Base Excess mEq/L Oxygen Given Sodium (136-145) mmol/L Potassium (3.5-5.1) mmol/L Chloride (98-107) mmol/L Carbon Dioxide (21-32) mmol/L Anion Gap (3-11) BUN (6-23) mg/dl Creatinine (0.6-1.4) mg/dl Est Cr Clr Drug Dosing ml/min eGFR BUN/Creatinine Ratio (10-20) Glucose (70-99(Fasting)) mg/dl Estimat Average Glucose mg/dl Hemoglobin A1c (4.5-5.6) % Lactate 1.5 (0.4-2.0) mmol/L Calcium (8.6-10.3) mg/dl Phosphorus (2.5-4.9) mg/dl Magnesium (1.7-2.4) mg/dl Total Bilirubin (0.2-1.0) mg/dl AST (13-39) U/L ALT (7-52) U/L Alkaline Phosphatase (34-104) U/L Troponin I High Sens 112.1 H* 112.6 H* D (0-20) pg/ml B-Natriuretic Peptide (0-100) pg/ml Total Protein (6.0-8.3) gm/dl Albumin (3.4-5.0) gm/dl Globulin (2.5-4.0) gm/dl Albumin/Globulin Ratio (0.9-2) Procalcitonin 0.10 (0-0.5) ng/ml Adenovirus (PCR) (NotDetected) B. pertussis DNA (PCR) (NotDetected) B.parapertussis DNA PCR (NotDetected) C. pneumoniae DNA (PCR) (NotDetected) Coronavirus OC43 (PCR) (NotDetected) Coronavirus HKU1 (PCR) (NotDetected) Coronavirus 229E (PCR) (NotDetected) SARS-CoV-2 (PCR) (NotDetected) Coronavirus NL63 (PCR) (NotDetected) Human Metapneumovir PCR (NotDetected) Influenza Type A (PCR) (NotDetected) Influenza Type B (PCR) (NotDetected) M. pneumoniae (PCR) (NotDetected) Parainfluenza 1 (PCR) (NotDetected) Parainfluenza 2 (PCR) (NotDetected) Parainfluenza 3 (PCR) (NotDetected) Parainfluenza 4 (PCR) (NotDetected) RSV (PCR) (NotDetected) Entero/Rhino (PCR) (NotDetected) 08/15/24 08/15/24 08/15/24 Range/Units 09:38 09:12 09:11 WBC 22.77 H (4.8-10.8) K/ul RBC 5.14 (4.70-6.10) M/uL Hgb 15.9 (14.0-18.0) g/dl Hct 47.5 (42.0-52.0) % MCV 92.4 (80.0-100.0) fL MCH 30.9 (25.0-34.0) pg MCHC 33.5 (32.0-36.0) g/dL RDW Std Deviation 47.2 H (36.4-46.3) fL RDW Coeff of Mirtha 13.8 (11.5-14.5) % Plt Count 319 (130-400) K/uL MPV 10.3 (9.4-12.4) fL Immature Gran % (Auto) 0.6 % Neut % (Auto) 80.1 % Lymph % (Auto) 12.9 % Phelps % (Auto) 6.0 % Eos % (Auto) 0.2 % Baso % (Auto) 0.2 % Neut # (Auto) 18.26 H (1.40-6.50) K/uL Lymph # (Auto) 2.93 (1.20-3.40) K/uL Phelps # (Auto) 1.36 H (0.11-0.59) K/uL Eos # (Auto) 0.05 (0.00-0.50) K/uL Baso # (Auto) 0.04 (0.00-0.20) K/uL Immature Gran # (Auto) 0.13 (0.01-0.20) K/uL PT Cancelled INR Cancelled APTT Cancelled PTT Ratio Cancelled ABG pH (7.35-7.45) ABG pCO2 (35-46) mmHg ABG pO2 (80-95) mmHg ABG HCO3 (19-24) mmol/L ABG O2 Saturation (90-95) % ABG Base Excess (-9-1.8) mEq/L Bucky Test (Pos) VBG pH 7.27 L (7.36-7.41) VBG pCO2 71 H (38-50) mmHg VBG pO2 50 mmHg VBG HCO3 33 mmol/L VBG O2 Saturation 79.4 % VBG Base Excess 3.5 mEq/L Oxygen Given Sodium 141 (136-145) mmol/L Potassium 3.8 (3.5-5.1) mmol/L Chloride 101 (98-107) mmol/L Carbon Dioxide 31 (21-32) mmol/L Anion Gap 9 (3-11) BUN 17 (6-23) mg/dl Creatinine 0.77 (0.6-1.4) mg/dl Est Cr Clr Drug Dosing 102.4 ml/min eGFR 104.42 BUN/Creatinine Ratio 22.1 H (10-20) Glucose 145 H (70-99(Fasting)) mg/dl Estimat Average Glucose mg/dl Hemoglobin A1c (4.5-5.6) % Lactate (0.4-2.0) mmol/L Calcium 9.2 (8.6-10.3) mg/dl Phosphorus (2.5-4.9) mg/dl Magnesium 1.9 (1.7-2.4) mg/dl Total Bilirubin 1.0 (0.2-1.0) mg/dl AST 28 (13-39) U/L ALT 46 (7-52) U/L Alkaline Phosphatase 64 (34-104) U/L Troponin I High Sens 44.8 H (0-20) pg/ml B-Natriuretic Peptide 91 (0-100) pg/ml Total Protein 7.6 (6.0-8.3) gm/dl Albumin 4.8 (3.4-5.0) gm/dl Globulin 2.8 (2.5-4.0) gm/dl Albumin/Globulin Ratio 1.7 (0.9-2) Procalcitonin (0-0.5) ng/ml Adenovirus (PCR) Not Detected (NotDetected) B. pertussis DNA (PCR) Not Detected (NotDetected) B.parapertussis DNA PCR Not Detected (NotDetected) C. pneumoniae DNA (PCR) Not Detected (NotDetected) Coronavirus OC43 (PCR) Not Detected (NotDetected) Coronavirus HKU1 (PCR) Not Detected (NotDetected) Coronavirus 229E (PCR) Not Detected (NotDetected) SARS-CoV-2 (PCR) Not Detected (NotDetected) Coronavirus NL63 (PCR) Not Detected (NotDetected) Human Metapneumovir PCR Not Detected (NotDetected) Influenza Type A (PCR) Not Detected (NotDetected) Influenza Type B (PCR) Not Detected (NotDetected) M. pneumoniae (PCR) Not Detected (NotDetected) Parainfluenza 1 (PCR) Not Detected (NotDetected) Parainfluenza 2 (PCR) Not Detected (NotDetected) Parainfluenza 3 (PCR) Not Detected (NotDetected) Parainfluenza 4 (PCR) Not Detected (NotDetected) RSV (PCR) Not Detected (NotDetected) Entero/Rhino (PCR) DETECTED A (NotDetected) Medications Administered Current Inpatient Medications Acetaminophen (Acetaminophen 325 Mg Tab) 650 mg PO Q4H PRN PRN Reason: Pain or Fever Stop: 09/14/24 12:11 Albuterol (Albut/Ipratrop 3mg/0.5mg Neb 3 Ml Vial) 3 ml NEB Q6R KERA; Protocol Stop: 09/14/24 12:59 Last Admin: 08/16/24 07:39 Dose: Not Given Budesonide (Budesonide 0.5 Mg/2 Ml Vial (Pulmicort)) 0.5 mg NEB BIDR KERA Stop: 09/14/24 18:59 Last Admin: 08/16/24 07:39 Dose: 0.5 mg Doxycycline Hyclate (Doxycycline Hyclate 100 Mg Cap) 100 mg PO BID [facility] Stop: 08/22/24 12:29 Last Admin: 08/15/24 22:27 Dose: 100 mg Enoxaparin Sodium (Enoxaparin Inj 40 Mg/0.4 Ml Syr) 40 mg SQ Q24H [facility]ERA Stop: 09/14/24 12:29 Last Admin: 08/15/24 13:34 Dose: 40 mg Formoterol Fumarate (Formoterol 20 Mcg/2 Ml Vial) 20 mcg INH BIDR [facility] Stop: 09/14/24 18:59 Last Admin: 08/16/24 07:39 Dose: 20 mcg Gabapentin (Gabapentin 300 Mg Cap) 300 mg PO TID [facility] Stop: 09/14/24 13:59 Last Admin: 08/15/24 22:27 Dose: 300 mg Guaifenesin (Guaifenesin 600 Mg Tabcr) 1,200 mg PO Q12 [facility] Stop: 09/14/24 20:59 Last Admin: 08/15/24 22:27 Dose: 1,200 mg Ceftriaxone Sodium (Rocephin) 2,000 mg in 50 mls @ 100 mls/hr IV Q24H [facility] Stop: 08/23/24 08:59 Methylprednisolone 40 mg/ (Syringe) 0.64 mls @ 1.5 mls/min IV Q8H [facility] Stop: 09/14/24 16:59 Last Admin: 08/16/24 01:01 Dose: 1.5 mls/min Influenza Virus Vacc Triv Types A&B (Influenza Vacc [id number](6m+)/Pf (Iiv3) 0.5ml Syr) 0.5 ml IM .ONCE ONE Stop: 08/16/24 12:26 Levalbuterol HCl (Levalbuterol Hcl 0.63 Mg/3 Ml Neb) 0.63 mg NEB Q4H PRN; Protocol PRN Reason: Shortness Of Breath Or Wheezing Stop: 09/14/24 12:11 Last Admin: 08/15/24 15:01 Dose: 0.63 mg Loratadine (Loratadine 10 Mg Tab) 10 mg PO DAILY PRN PRN Reason: allergies Stop: 09/14/24 12:11 Ondansetron HCl (Ondansetron Inj 2 Mg/Ml 2 Ml Vial) 4 mg IV Q6H PRN PRN Reason: Nausea Stop: 09/14/24 12:11 Pantoprazole Sodium (Pantoprazole 40 Mg Tab) 40 mg PO QAM [facility] Stop: 09/15/24 08:59 Polyethylene Glycol (Polyethylene (Miralax) 17 Gm Pack) 17 gm PO DAILY PRN PRN Reason: Constipation Stop: 09/14/24 12:11 Rosuvastatin Calcium (Rosuvastatin Calcium 10 Mg Tab) 10 mg PO DAILY [facility] Stop: 09/15/24 08:59
--- NOTE | 2024-08-16 08:28 | Pulmonology Progress Note ---
Date of Service August 16, 2024 Assessment & Plan (1) Rhinovirus infection: (2) COPD exacerbation: (3) Acute respiratory failure with hypoxia and hypercapnia: (4) COPD with emphysema: (5) Tobacco use disorder: (6) Acute bronchitis: Plan CT chest 08/15/2024 personally reviewed: Severe centrilobular and paraseptal emphysema appreciated bilaterally Saber-sheath trachea Bronchial wall thickening appreciated bilaterally especially in the lower lobes No mediastinal lymphadenopathy PFT 04/07/2023 personally reviewed: Very severe obstructive lung dysfunction, insignificant bronchodilator response, increased lung volumes with air trapping, moderate decrease in DLCO FVC 2.47 L 56%, FEV1 0.95 L, 27%, FEV1/FVC 38, TLC 134%, RV 336%, RV/TLC 78, DLCO 52% --Acute hypoxic respiratory failure With acute COPD exacerbation and acute on chronic bronchitis Etiology is likely rhinovirus Respiratory BioFire was positive for entero-/rhinovirus Procalcitonin 0.1 Absolute eosinophil count 210 on 06/30/2024 -- Severe COPD with emphysema On Trelegy 200 at home --Current smoker [id number] smoking history Plan: Continue with nebulized dilators Mucinex and flutter valve BiPAP nightly and as needed shortness of breath As of tomorrow we can decrease the Solu-Medrol to 40 mg twice daily Complete the course of doxycycline for 5 days. I think it is reasonable to discontinue Rocephin as I do not see any clear signs of pneumonia on the CT of the chest Due to chronic respiratory failure consequent to very severe COPD, FEV1 27% predicted, patient now requires a noninvasive home ventilator. Patient would benefit greatly from noninvasive ventilation which would improve lung function and potentially reduce worsening of symptoms. A BiPAP would be ineffective as patient requires a volume targeted mode. Interruption of ventilator support would lead to a decline of health status. NIMV settings should be AVAPS-AE; Breath rate: auto; Inspiratory time:auto; Sigh: off; Tidal Volume: 350-450, PS min: 4-10 PS max: 12-20; EPAP min: 6-10; EPAP max: 10-16; AVAPS rate: 14 during sleep and as needed Case was discussed with primary team Please note the above document was generated using voice recognition software. It may contain grammatical, syntax or spelling errors.Any formal questions or concerns about the content, text or information contained within the body of this dictation should be directly addressed to the provider for clarification. Admission and Anticipated Discharge Date Admission Date: August 15, 2024 Subjective Patient seen and examined at bedside. No acute distress Overall he says he is feeling better Did use the BiPAP all night He was saturating 93% on 2 L nasal cannula. Coughing up clear phlegm. Denies any hemoptysis No abdominal pain No nausea vomiting Review of Systems 2 Review of Systems: All systems reviewed & are unremarkable except as noted in Subjective Physical Exam 2 Physical Exam: Constitutional: In respiratory distress HEENT: EOMI, PERRLA Respiratory system: Decreased air entry bilaterally, no rhonchi, no crackles, positive expiratory wheeze bilaterally, improved from before CVS: S1-S2 positive, no murmurs or gallops Abdomen: Soft, nontender, distended, positive bowel sounds x4, obese Extremities: +2 pulses bilaterally radialis/ dorsalis pedis, no cyanosis, no edema Neuro: Awake alert oriented x3 Psych: Normal mood and affect G/U: No Dempsey Skin: no rashes, warm and dry Lymphatic: no cervical or axillary lymphadenopathy Results & Data Results & Data Vital Signs (Past 12 Hours) Vital Signs Temp Pulse Pulse Resp BP Pulse Ox O2 Del Method 08/16/24 08:02 78 19 141/92 H 95 Nasal Cannula 08/16/24 07:39 71 16 94 08/16/24 07:39 63 16 94 BiPAP 08/16/24 06:33 69 08/16/24 04:02 72 16 95 08/16/24 03:16 36.5 C 63 18 106/80 96 BiPAP 08/16/24 00:53 84 16 94 BiPAP 08/15/24 23:00 85 14 95 08/15/24 22:30 BiPAP 08/15/24 22:15 36.5 C 74 18 111/75 BiPAP 08/15/24 21:47 80 O2 Flow Rate FiO2 08/16/24 08:02 2 08/16/24 07:39 30 08/16/24 07:39 30 08/16/24 06:33 08/16/24 04:02 30 08/16/24 03:16 08/16/24 00:53 30 08/15/24 23:00 30 08/15/24 22:30 08/15/24 22:15 08/15/24 21:47 Laboratory Results 08/16/24 06:04 08/16/24 06:04 PG Care Time/CCT Total # of Minutes Spent Total Time Spent with Patient: Total time spent is greater than 50% in coordination of care (as documented) at patient's floor/unit and/or counseling patient: Coding Level of Care Code 41088 SUB INP/OBS CARE 3/50MIN Diagnoses Rhinovirus infection B34.8 COPD exacerbation J44.1 Acute respiratory failure with hypoxia and hypercapnia J96.01; J96.02 COPD with emphysema J43.9 Tobacco use disorder F17.200 Acute bronchitis J20.9
[2024-08-16] MEDS: ROSUVASTATIN CALCIUM 10 MG TAB PO SCH (08:57)
[2024-08-16] MEDS: PANTOprazole 40 MG TAB PO SCH (08:57)
[2024-08-16] MEDS: cefTRIAXone SODIUM 2,000 MG/50 ML BAG IV SCH (08:57)
[2024-08-16] MEDS ORDERED: PHARMACY GLYCEMIC MGMT CONSULT PRN (10:59)
[2024-08-16] MEDS ORDERED: GLUCOSE 40% GEL 15 GM TUBE PO PRN (11:15)
[2024-08-16] MEDS ORDERED: DEXTROSE 50% 50 ML SYRINGE IV PRN (11:15)
[2024-08-16] MEDS ORDERED: GLUCAGON FOR INJ 1 MG VIAL SQ PRN (11:15)
[2024-08-16] MEDS ORDERED: CARBOHYDRATES FOR HYPOGLYCEMIA PO PRN (11:15)
[2024-08-16] MEDS ORDERED: GLUCOSE 10 TAB/TUBE PO PRN (11:15)
[2024-08-16] MEDS: INSULIN ASPART PER UNIT CHARGE SC SCH ×2 (12:35→17:07)
--- NOTE | 2024-08-16 14:19 | Pharmacy Report ---
Pharmacy Glycemic Short Note 2 - Date of Service August 16, 2024 - Glycemic Short BSG Results (Last 24 hours): 08/16/24 06:04 Glucose 164 H OUTPATIENT ANTIDIABETIC REGIMEN: * n/a HbA1C: 7.5% ASSESSMENT: * Pt is a 58 year old male admitted with rhinovirus/enterovirus COPD exacerbation. New diabetes diagnosis- not on anti hyperglycemic medications at home. Pharmacy consulted to assist with inpatient glycemic management in setting of steroids. * BSGs 145-164 mg/dL so far this admission (no additional POCs were obtained today). * Receiving methylprednisolone 40mg IV TID and antibiotics. Currently NPO. * Initiate Novolog q6 moderate stress scale. Hold basal for now. PLAN FOR INPATIENT GLYCEMIC CONTROL: * Hold outpatient oral diabetes medications * Basal insulin * hold * Bolus insulin * NovoLog per scale ACHS or Q6hrs while NPO * Goal Range: Low 110 mg/dL - High 140 mg/dL * Correction Factor: 30 mg/dL/unit * Nutritional / Prandial insulin per carb ratio of 1 unit per 15 grams CHO consumed
--- NOTE | 2024-08-16 14:52 | Electrocardiogram Report ---
Test Reason : Blood Pressure : */* mmHG Vent. Rate : 63 BPM Atrial Rate : 63 BPM P-R Int : 122 ms QRS Dur : 78 ms QT Int : 426 ms P-R-T Axes : 79 68 71 degrees QTcB Int : 435 ms Normal sinus rhythm with sinus arrhythmia Normal ECG When compared with ECG of 15-Aug-2024 13:27, No significant change was found Confirmed by Evan Dunn ([id number]) on 08/16/2024 2:52:10 PM Referred By: REFERRED SELF Confirmed By: Evan Dunn
[2024-08-17 07:03] LABS: Hematocrit (blood only) 39.7 % (42.0-52.0); Hemoglobin 13.6 g/dl (14.0-18.0); Mean Corpuscular Hemoglobin 31.2 pg (25.0-34.0); Mean Corpuscular Hgb Conc 34.3 g/dL (32.0-36.0); Mean Corpuscular Volume 91.1 fL (80.0-100.0); Mean Platelet Volume 10.6 fL (9.4-12.4); Platelet Count 251 K/uL (130-400); RDW Coefficient of Variation 13.7 % (11.5-14.5); RDW Standard Deviation 46.4 fL (36.4-46.3); Red Blood Count 4.36 M/uL (4.70-6.10); White Blood Count 18.78 K/ul (4.8-10.8)
[2024-08-17 07:16] LABS: BUN Creatinine Ratio 47.1 (10-20); Calcium 8.8 mg/dl (8.6-10.3); Magnesium 2.2 mg/dl (1.7-2.4); Phosphorus 4.6 mg/dl (2.5-4.9); Potassium 4.3 mmol/L (3.5-5.1)
--- NOTE | 2024-08-17 07:39 | Hospitalist Progress Note ---
Date of Service August 17, 2024 Assessment & Plan (1) Rhinovirus infection: (2) Respiratory acidosis: (3) Acute hypoxic respiratory failure: (4) Elevated troponin: Plan Beverly Femrin is a 58y/o M with PMHx significant for severe COPD with emphysema, HLD, GERD, diverticulitis, DDD, major depressive disorder, tobacco use disorder and chronic back pain who presented to the ED via EMS secondary to worsening SOB/dyspnea and was found to be in acute hypoxic respiratory failure on arrival. Enterovirus/Rhinovirus Infection & Respiratory Acidosis Acute Hypoxic Respiratory Failure ISO Severe COPD w/ Emphysema : Patient's O2 sat was 88% on arrival to the ED. He was subsequently placed on BiPAP with improvement in his breathing. WBC 22.77k, RVP positive for entero-/rhinovirus. VBG showed respiratory acidosis with a pH of 7.27 and pCO2 of 71. CXR showed advanced emphysema with no active disease. Chest CTA 1. No pulmonary emboli identified. 2. Advanced emphysema with bronchitis and bibasilar mucous plugging. Procalcitonin negative, BNP 91. Lactate negative. S/p 2g IV Rocephin, 125mg IV Solu-Medrol and hour-long albuterol neb in the ED. Will continue IV Rocephin 2g Q24H, oral doxycycline added on as well. Pulmonary toilet with incentive spirometry, flutter valve and scheduled nebs. 40mg IV Solu-Medrol Q8H. Blood culture pending. Aspiration and contact precautions. Wean off BiPAP as tolerated. -> currently on suppl. O2 via [place] Patient will ultimately need close pulmonology follow-up at time of discharge. Previously seen by [facility], on home Trelegy. Encouraged smoking cessation. Denies need for nicotine patch at this time. Pulmonary medicine consulted PFT 04/07/2023: Very severe obstructive lung dysfunction, insignificant bronchodilator response, increased lung volumes with air trapping, moderate decrease in DLCO FVC 2.47 L 56%, FEV1 0.95 L, 27%, FEV1/FVC 38, TLC 134%, RV 336%, RV/TLC 78, DLCO 52% Cont. IV solumedrol q12 hrs, add Mucomyst formoterol inh, budesonide neb guaifenesin cont. doxycyline for 5 days Due to chronic respiratory failure consequent to very severe COPD, FEV1 27% predicted, patient now requires a noninvasive home ventilator. Patient would benefit greatly from noninvasive ventilation which would improve lung function and potentially reduce worsening of symptoms. A BiPAP would be ineffective as patient requires a volume targeted mode. Interruption of ventilator support would lead to a decline of health status. NIMV settings should be AVAPS-AE; Breath rate: auto; Inspiratory time:auto; Sigh: off; Tidal Volume: 350-450, PS min: 4-10 PS max: 12-20; EPAP min: 6-10; EPAP max: 10-16; AVAPS rate: 14 during sleep and as needed Elevated Troponin: Troponin elevated at 44.8 on arrival, likely reactive secondary to respiratory status, demand ischemia Initial EKG showed baseline artifact but no obvious acute ST changes. Continuous cardiac monitoring in place. Echo obtained - No regional wall motion abnormalities noted. LV is hyperdynamic. LVEF 65 to 70%. RV is normal in size and function. Doppler findings do not suggest pulmonary hypertension. Poss.New dg. of DM type 2 Possibly steroid induced. Hgb A1c 7.5% cont. 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 Regular/balanced meals. 2.) Recheck hemoglobin A1c and fasting glucose x 3-6 months to guide need for diabetes medications. 3.) Follow-up with primary provider for further discussion and monitoring. Other Chronic Medical Conditions: HLD, GERD, chronic back pain and seasonal allergies --> Can continue home medications for these specific conditions. DVT Prophylaxis: SQ Lovenox Code Status: FULL CODE PCP: Octavio Miller MD Disposition: PCU/Telemetry Admission and Anticipated Discharge Date Admission Date: August 15, 2024 Subjective Pt seen in follow up of hypoxic resp. failure, hx of COPD, now posit for entero/rhinovirus + Accessory muscle use on admission Was placed on Bipap in ER, pulm. consulted Currently laying in bed in NAD On supplemental oxygen, 3 L, in NAD, able to converse YESTERDAY patient had severe dyspnea on exertion just walking to the bathroom, and was placed on 5 L. Today pt said he didn't ambulate yet. Family present at the bedside. Pt denies any chest pain, fever, chills, abd. pain, nausea, vomiting A1c elevated - ? new dg. of DM Review of Systems Review of Systems: All systems reviewed & are unremarkable except as noted in Subjective Physical Exam Physical Exam: General Appearance: well nourished M in no apparent distress, on suppl. O2 Head: normocephalic, Atraumatic Eyes: normal inspection, EOMI Neck: supple Respiratory/Chest: Decreased coarse breath sounds, + wheezing, rhonchi, NO accessory muscle use Cardiovascular: S1, S2, No murmur Abdomen/GI:Soft, Non tender, Bowel sounds present Extremities/Musculoskeletal:normal inspection, trace pedal edema Neurologic/Psych:AAOX3, grossly no focal neurological deficits Skin: warm, dry Results & Data Results & Data Vital Signs (Past 12 Hours) Vital Signs Temp Pulse Pulse Resp BP BP Pulse Ox 08/17/24 07:20 86 15 98 08/17/24 07:20 85 15 98 08/17/24 07:00 36.9 C 66 18 126/80 100 08/17/24 05:32 76 08/17/24 04:03 36.4 C L 64 17 118/79 96 08/17/24 01:20 66 14 97 08/17/24 01:20 66 15 97 08/16/24 23:31 36.5 C 69 16 115/72 98 08/16/24 22:35 78 22 98 08/16/24 22:19 76 08/16/24 20:24 36.6 C 70 19 158/80 H 95 08/16/24 20:06 93 H 17 95 08/16/24 20:00 O2 Del Method O2 Flow Rate FiO2 08/17/24 07:20 30 08/17/24 07:20 BiPAP 30 08/17/24 07:00 Nasal Cannula 08/17/24 05:32 08/17/24 04:03 BiPAP 08/17/24 01:20 30 08/17/24 01:20 BiPAP 30 08/16/24 23:31 BiPAP 08/16/24 22:35 30 08/16/24 22:19 08/16/24 20:24 Nasal Cannula 6 08/16/24 20:06 Nasal Cannula 5 08/16/24 20:00 Nasal Cannula 6 Laboratory Results 08/17/24 08/16/24 08/16/24 Range/Units 06:14 21:20 15:51 WBC 18.78 H (4.8-10.8) K/ul RBC 4.36 L (4.70-6.10) M/uL Hgb 13.6 L (14.0-18.0) g/dl Hct 39.7 L (42.0-52.0) % MCV 91.1 (80.0-100.0) fL MCH 31.2 (25.0-34.0) pg MCHC 34.3 (32.0-36.0) g/dL RDW Std Deviation 46.4 H (36.4-46.3) fL RDW Coeff of Mirtha 13.7 (11.5-14.5) % Plt Count 251 (130-400) K/uL MPV 10.6 (9.4-12.4) fL Sodium 140 (136-145) mmol/L Potassium 4.3 (3.5-5.1) mmol/L Chloride 101 (98-107) mmol/L Carbon Dioxide 30 (21-32) mmol/L Anion Gap 9 (3-11) BUN 32 H (6-23) mg/dl Creatinine 0.68 (0.6-1.4) mg/dl Est Cr Clr Drug Dosing 116.0 ml/min eGFR 108.42 BUN/Creatinine Ratio 47.1 H (10-20) Glucose 138 H (70-99(Fasting)) mg/dl POC Glucose 73 298 H (70-99) mg/dl Calcium 8.8 (8.6-10.3) mg/dl Phosphorus 4.6 (2.5-4.9) mg/dl Magnesium 2.2 (1.7-2.4) mg/dl Troponin I High Sens (0-20) pg/ml 08/16/24 Range/Units 08:57 WBC (4.8-10.8) K/ul RBC (4.70-6.10) M/uL Hgb (14.0-18.0) g/dl Hct (42.0-52.0) % MCV (80.0-100.0) fL MCH (25.0-34.0) pg MCHC (32.0-36.0) g/dL RDW Std Deviation (36.4-46.3) fL RDW Coeff of Mirtha (11.5-14.5) % Plt Count (130-400) K/uL MPV (9.4-12.4) fL Sodium (136-145) mmol/L Potassium (3.5-5.1) mmol/L Chloride (98-107) mmol/L Carbon Dioxide (21-32) mmol/L Anion Gap (3-11) BUN (6-23) mg/dl Creatinine (0.6-1.4) mg/dl Est Cr Clr Drug Dosing ml/min eGFR BUN/Creatinine Ratio (10-20) Glucose (70-99(Fasting)) mg/dl POC Glucose (70-99) mg/dl Calcium (8.6-10.3) mg/dl Phosphorus (2.5-4.9) mg/dl Magnesium (1.7-2.4) mg/dl Troponin I High Sens 17.6 (0-20) pg/ml Medications Administered Current Inpatient Medications Acetaminophen (Acetaminophen 325 Mg Tab) 650 mg PO Q4H PRN PRN Reason: Pain or Fever Stop: 09/14/24 12:11 Albuterol (Albut/Ipratrop 3mg/0.5mg Neb 3 Ml Vial) 3 ml NEB Q6R [facility]; Protocol Stop: 09/14/24 12:59 Last Admin: 08/17/24 07:20 Dose: Not Given Budesonide (Budesonide 0.5 Mg/2 Ml Vial (Pulmicort)) 0.5 mg NEB BIDR [facility] Stop: 09/14/24 18:59 Last Admin: 08/17/24 07:20 Dose: 0.5 mg Dextrose (Dextrose 50% 50 Ml Syringe) 25 - 50 ml IV UD PRN; Protocol PRN Reason: Hypoglycemia Protocol Stop: 09/15/24 11:14 Doxycycline Hyclate (Doxycycline Hyclate 100 Mg Cap) 100 mg PO BID [facility] Stop: 08/22/24 12:29 Last Admin: 08/16/24 20:21 Dose: 100 mg Enoxaparin Sodium (Enoxaparin Inj 40 Mg/0.4 Ml Syr) 40 mg SQ Q24H [facility] Stop: 09/14/24 12:29 Last Admin: 08/16/24 12:37 Dose: 40 mg Formoterol Fumarate (Formoterol 20 Mcg/2 Ml Vial) 20 mcg INH BIDR [facility] Stop: 09/14/24 18:59 Last Admin: 08/17/24 07:20 Dose: 20 mcg Gabapentin (Gabapentin 300 Mg Cap) 300 mg PO TID [facility] Stop: 09/14/24 13:59 Last Admin: 08/16/24 20:21 Dose: 300 mg Glucagon (Glucagon For Inj 1 Mg Vial) 1 mg SQ UD PRN; Protocol PRN Reason: Hypoglycemia Protocol Stop: 09/15/24 11:14 Glucose (Glucose 40% Gel 15 Gm Tube) 15 - 30 gm PO UD PRN; Protocol PRN Reason: Hypoglycemia Protocol Stop: 09/15/24 11:14 Glucose (Glucose 10 Tab/Tube) 4 - 8 tab PO UD PRN; Protocol PRN Reason: Hypoglycemia Protocol Stop: 09/15/24 11:14 Guaifenesin (Guaifenesin 600 Mg Tabcr) 1,200 mg PO Q12 [facility] Stop: 09/14/24 20:59 Last Admin: 08/16/24 20:20 Dose: 1,200 mg Ceftriaxone Sodium (Rocephin) 2,000 mg in 50 mls @ 100 mls/hr IV Q24H [facility] Stop: 08/23/24 08:59 Last Infusion: 08/16/24 10:14 Dose: Infused Methylprednisolone 40 mg/ (Syringe) 0.64 mls @ 1.5 mls/min IV Q8H [facility] Stop: 09/14/24 16:59 Last Admin: 08/17/24 01:05 Dose: 1.5 mls/min Insulin Aspart (Insulin Aspart Per Unit Charge) 0 units SC ACHS [facility] Stop: 09/15/24 11:59 Last Admin: 08/16/24 21:58 Dose: Not Given Levalbuterol HCl (Levalbuterol Hcl 0.63 Mg/3 Ml Neb) 0.63 mg NEB Q4H PRN; Protocol PRN Reason: Shortness Of Breath Or Wheezing Stop: 09/14/24 12:11 Last Admin: 08/15/24 15:01 Dose: 0.63 mg Loratadine (Loratadine 10 Mg Tab) 10 mg PO DAILY PRN PRN Reason: allergies Stop: 09/14/24 12:11 Miscellaneous (Carbohydrates For Hypoglycemia ) 15 - 30 gm PO UD PRN PRN Reason: Hypoglycemia Treatment Stop: 09/15/24 11:14 Miscellaneous Information (Pharmacy Glycemic Mgmt Consult) 1 each N/A UD PRN; Protocol PRN Reason: Consult Stop: 09/15/24 10:58 Ondansetron HCl (Ondansetron Inj 2 Mg/Ml 2 Ml Vial) 4 mg IV Q6H PRN PRN Reason: Nausea Stop: 09/14/24 12:11 Pantoprazole Sodium (Pantoprazole 40 Mg Tab) 40 mg PO QAM [facility] Stop: 09/15/24 08:59 Last Admin: 08/16/24 08:57 Dose: 40 mg Polyethylene Glycol (Polyethylene (Miralax) 17 Gm Pack) 17 gm PO DAILY PRN PRN Reason: Constipation Stop: 09/14/24 12:11 Rosuvastatin Calcium (Rosuvastatin Calcium 10 Mg Tab) 10 mg PO DAILY [facility] Stop: 09/15/24 08:59 Last Admin: 08/16/24 08:57 Dose: 10 mg
--- NOTE | 2024-08-17 08:05 | Pulmonology Progress Note ---
Date of Service August 17, 2024 Assessment & Plan (1) Rhinovirus infection: (2) COPD exacerbation: (3) Acute respiratory failure with hypoxia and hypercapnia: (4) COPD with emphysema: (5) Tobacco use disorder: (6) Acute bronchitis: Plan CT chest 08/15/2024 personally reviewed: Severe centrilobular and paraseptal emphysema appreciated bilaterally Saber-sheath trachea Bronchial wall thickening appreciated bilaterally especially in the lower lobes No mediastinal lymphadenopathy PFT 04/07/2023 personally reviewed: Very severe obstructive lung dysfunction, insignificant bronchodilator response, increased lung volumes with air trapping, moderate decrease in DLCO FVC 2.47 L 56%, FEV1 0.95 L, 27%, FEV1/FVC 38, TLC 134%, RV 336%, RV/TLC 78, DLCO 52% --Acute hypoxic respiratory failure With acute COPD exacerbation and acute on chronic bronchitis Etiology is likely rhinovirus Respiratory BioFire was positive for entero-/rhinovirus Procalcitonin 0.1 Absolute eosinophil count 210 on 06/30/2024 Due to chronic respiratory failure consequent to very severe COPD, FEV1 27% predicted, patient now requires a noninvasive home ventilator. Patient would benefit greatly from noninvasive ventilation which would improve lung function and potentially reduce worsening of symptoms. A BiPAP would be ineffective as patient requires a volume targeted mode. Interruption of ventilator support would lead to a decline of health status. NIMV settings should be AVAPS-AE; Breath rate: auto; Inspiratory time:auto; Sigh: off; Tidal Volume: 350-450, PS min: 4-10 PS max: 12-20; EPAP min: 6-10; EPAP max: 10-16; AVAPS rate: 14 during sleep and as needed -- Severe COPD with emphysema On Trelegy 200 at home --Current smoker [id number] smoking history Plan: Continue with nebulized dilators Mucinex and flutter valve Add Mucomyst nebulized to his regimen BiPAP nightly and as needed shortness of breath Decrease the Solu-Medrol to 40 mg twice daily Complete the course of doxycycline for 5 days. I think it is reasonable to discontinue Rocephin as I do not see any clear signs of pneumonia on the CT of the chest Case was discussed with primary team Case management has been consulted to work on getting the patient AVAPS Please note the above document was generated using voice recognition software. It may contain grammatical, syntax or spelling errors.Any formal questions or concerns about the content, text or information contained within the body of this dictation should be directly addressed to the provider for clarification. Admission and Anticipated Discharge Date Admission Date: August 15, 2024 Subjective Patient seen and examined at bedside. No acute distress, no adverse events overnight He was saturating 100 % on 5 L, I went down to 3 l Overall he says he is feeling better Did use his BiPAP overnight Denied any headache, no nausea, no vomiting Fair appetite Review of Systems 2 Review of Systems: All systems reviewed & are unremarkable except as noted in Subjective Physical Exam 2 Physical Exam: Constitutional: No acute distress HEENT: EOMI, PERRLA Respiratory system: Decreased air entry bilaterally, no rhonchi, no crackles, positive expiratory wheeze bilaterally, improved from before CVS: S1-S2 positive, no murmurs or gallops Abdomen: Soft, nontender, distended, positive bowel sounds x4, obese Extremities: +2 pulses bilaterally radialis/ dorsalis pedis, no cyanosis, no edema Neuro: Awake alert oriented x3 Psych: Normal mood and affect G/U: No Dempsey Skin: no rashes, warm and dry Lymphatic: no cervical or axillary lymphadenopathy Results & Data Results & Data Vital Signs (Past 12 Hours) Vital Signs Temp Pulse Pulse Resp BP BP Pulse Ox 08/17/24 07:20 86 15 98 08/17/24 07:20 85 15 98 08/17/24 07:00 36.9 C 66 18 126/80 100 08/17/24 05:32 76 08/17/24 04:03 36.4 C L 64 17 118/79 96 08/17/24 01:20 66 14 97 08/17/24 01:20 66 15 97 08/16/24 23:31 36.5 C 69 16 115/72 98 08/16/24 22:35 78 22 98 08/16/24 22:19 76 08/16/24 20:24 36.6 C 70 19 158/80 H 95 08/16/24 20:06 93 H 17 95 O2 Del Method O2 Flow Rate FiO2 08/17/24 07:20 30 08/17/24 07:20 BiPAP 30 08/17/24 07:00 Nasal Cannula 08/17/24 05:32 08/17/24 04:03 BiPAP 08/17/24 01:20 30 08/17/24 01:20 BiPAP 30 08/16/24 23:31 BiPAP 08/16/24 22:35 30 08/16/24 22:19 08/16/24 20:24 Nasal Cannula 6 08/16/24 20:06 Nasal Cannula 5 Laboratory Results 08/17/24 06:14 08/17/24 06:14 PG Care Time/CCT Total # of Minutes Spent Total Time Spent with Patient: Total time spent is greater than 50% in coordination of care (as documented) at patient's floor/unit and/or counseling patient: Coding Level of Care Code 50983 SUB INP/OBS CARE 2/35MIN Diagnoses Rhinovirus infection B34.8 COPD exacerbation J44.1 Acute respiratory failure with hypoxia and hypercapnia J96.01; J96.02 COPD with emphysema J43.9 Tobacco use disorder F17.200 Acute bronchitis J20.9
[2024-08-17] MEDS: LANTUS PER UNIT CHARGE SC ONE (12:20)
[2024-08-17] MEDS: ACETYLCYSTEINE 20% INHAL SOLN 4ML ***DISPENSED BY RESP. INH SCH (13:26)
[2024-08-17] MEDS: methylPREDNISolone 40 MG in SYRINGE 0 ML IV SCH (22:09)
[2024-08-18 06:43] LABS: Hematocrit (blood only) 42.5 % (42.0-52.0); Hemoglobin 14.3 g/dl (14.0-18.0); Mean Corpuscular Hemoglobin 30.9 pg (25.0-34.0); Mean Corpuscular Hgb Conc 33.6 g/dL (32.0-36.0); Mean Corpuscular Volume 91.8 fL (80.0-100.0); Mean Platelet Volume 10.6 fL (9.4-12.4); Platelet Count 270 K/uL (130-400); RDW Coefficient of Variation 13.6 % (11.5-14.5); RDW Standard Deviation 46.2 fL (36.4-46.3); Red Blood Count 4.63 M/uL (4.70-6.10); White Blood Count 13.66 K/ul (4.8-10.8)
[2024-08-18 07:11] LABS: BUN Creatinine Ratio 42.1 (10-20); Calcium 8.8 mg/dl (8.6-10.3); Creatinine Clr Calc Pharmacy 103.8 ml/min; Magnesium 2.2 mg/dl (1.7-2.4); Phosphorus 4.3 mg/dl (2.5-4.9); Potassium 4.5 mmol/L (3.5-5.1)
--- NOTE | 2024-08-18 08:17 | Pulmonology Progress Note ---
Date of Service August 18, 2024 Assessment & Plan (1) Rhinovirus infection: (2) COPD exacerbation: (3) Acute respiratory failure with hypoxia and hypercapnia: (4) COPD with emphysema: (5) Tobacco use disorder: (6) Acute bronchitis: Plan CT chest 08/15/2024 personally reviewed: Severe centrilobular and paraseptal emphysema appreciated bilaterally Saber-sheath trachea Bronchial wall thickening appreciated bilaterally especially in the lower lobes No mediastinal lymphadenopathy PFT 04/07/2023 personally reviewed: Very severe obstructive lung dysfunction, insignificant bronchodilator response, increased lung volumes with air trapping, moderate decrease in DLCO FVC 2.47 L 56%, FEV1 0.95 L, 27%, FEV1/FVC 38, TLC 134%, RV 336%, RV/TLC 78, DLCO 52% --Acute hypoxic respiratory failure With acute COPD exacerbation and acute on chronic bronchitis Etiology is likely rhinovirus Respiratory BioFire was positive for entero-/rhinovirus Procalcitonin 0.1 Absolute eosinophil count 210 on 06/30/2024 Due to chronic respiratory failure consequent to very severe COPD, FEV1 27% predicted, patient now requires a noninvasive home ventilator. Patient would benefit greatly from noninvasive ventilation which would improve lung function and potentially reduce worsening of symptoms. A BiPAP would be ineffective as patient requires a volume targeted mode. Interruption of ventilator support would lead to a decline of health status. NIMV settings should be AVAPS-AE; Breath rate: auto; Inspiratory time:auto; Sigh: off; Tidal Volume: 350-450, PS min: 4-10 PS max: 12-20; EPAP min: 6-10; EPAP max: 10-16; AVAPS rate: 14 during sleep and as needed -- Severe COPD with emphysema On Trelegy 200 at home Given the FEV1 of 27%, he may even be a transplant candidate with the age of 58 He needs to quit smoking for at least 6 months in order to be considered for it He he is agreeable to quitting and then eventually --Current smoker [id number] smoking history Plan: Continue with nebulized dilators Mucinex and flutter valve If after the Mucomyst nebulized dose in the evening patient still complains of chest tightness okay to discontinue Mucomyst nebulized BiPAP nightly and as needed shortness of breath Decrease the Solu-Medrol to 40 mg twice daily. Can consider transitioning to daily tomorrow Complete the course of doxycycline for 5 days. Case was discussed with primary team Case management has been consulted to work on getting the patient AVAPS Please note the above document was generated using voice recognition software. It may contain grammatical, syntax or spelling errors.Any formal questions or concerns about the content, text or information contained within the body of this dictation should be directly addressed to the provider for clarification. Admission and Anticipated Discharge Date Admission Date: August 15, 2024 Subjective Patient seen and examined at bedside. No acute distress, no dressings overnight He was saturating 95 to 96% on 2 L nasal cannula. He was able to tolerate the Mucomyst but he did state that while he was getting it through the BiPAP it made his chest tight. Coughing up clear phlegm No chest pain. Overall shortness of breath is improved. Denies any nausea vomiting, fair appetite Review of Systems 2 Review of Systems: All systems reviewed & are unremarkable except as noted in Subjective Physical Exam 2 Physical Exam: Constitutional: No acute distress HEENT: EOMI, PERRLA Respiratory system: Decreased air entry bilaterally, no rhonchi, no crackles, no wheeze CVS: S1-S2 positive, no murmurs or gallops Abdomen: Soft, nontender, distended, positive bowel sounds x4, obese Extremities: +2 pulses bilaterally radialis/ dorsalis pedis, no cyanosis, no edema Neuro: Awake alert oriented x3 Psych: Normal mood and affect G/U: No Dempsey Skin: no rashes, warm and dry Lymphatic: no cervical or axillary lymphadenopathy Results & Data Results & Data Vital Signs (Past 12 Hours) Vital Signs Temp Pulse Pulse Resp BP Pulse Ox O2 Del Method 08/18/24 07:56 36.6 C 78 18 115/65 96 BiPAP 08/18/24 07:27 80 08/18/24 07:19 72 18 95 08/18/24 07:19 72 18 95 BiPAP 08/18/24 04:01 36.5 C 71 16 110/77 97 BiPAP 08/18/24 03:45 78 17 95 08/18/24 00:29 64 15 95 BiPAP 08/17/24 23:54 78 08/17/24 23:54 Nasal Cannula, BiPAP 08/17/24 23:24 36.5 C 66 16 130/85 96 BiPAP 08/17/24 22:26 77 25 H 95 FiO2 08/18/24 07:56 08/18/24 07:27 08/18/24 07:19 30 08/18/24 07:19 30 08/18/24 04:01 08/18/24 03:45 30 08/18/24 00:29 30 08/17/24 23:54 08/17/24 23:54 30 08/17/24 23:24 08/17/24 22:26 30 Laboratory Results 08/18/24 05:33 08/18/24 05:33 PG Care Time/CCT Total # of Minutes Spent Total Time Spent with Patient: Total time spent is greater than 50% in coordination of care (as documented) at patient's floor/unit and/or counseling patient: Coding Level of Care Code 28208 SUB INP/OBS CARE 2/35MIN Diagnoses Rhinovirus infection B34.8 COPD exacerbation J44.1 Acute respiratory failure with hypoxia and hypercapnia J96.01; J96.02 COPD with emphysema J43.9 Tobacco use disorder F17.200 Acute bronchitis J20.9
[2024-08-18] MEDS: LANTUS PER UNIT CHARGE SC ONE (08:33)
--- NOTE | 2024-08-18 09:13 | Hospitalist Progress Note ---
Date of Service August 18, 2024 Assessment & Plan (1) Rhinovirus infection: (2) Respiratory acidosis: (3) Acute hypoxic respiratory failure: (4) Elevated troponin: Plan Beverly Fermin is a 58y/o M with PMHx significant for severe COPD with emphysema, HLD, GERD, diverticulitis, DDD, major depressive disorder, tobacco use disorder and chronic back pain who presented to the ED via EMS secondary to worsening SOB/dyspnea and was found to be in acute hypoxic respiratory failure on arrival. Enterovirus/Rhinovirus Infection & Respiratory Acidosis Acute Hypoxic Respiratory Failure ISO Severe COPD w/ Emphysema : Patient's O2 sat was 88% on arrival to the ED. He was subsequently placed on BiPAP with improvement in his breathing. WBC 22.77k, RVP positive for entero-/rhinovirus. VBG showed respiratory acidosis with a pH of 7.27 and pCO2 of 71. CXR showed advanced emphysema with no active disease. Chest CTA 1. No pulmonary emboli identified. 2. Advanced emphysema with bronchitis and bibasilar mucous plugging. Procalcitonin negative BNP 91. Lactate negative. S/p 2g IV Rocephin, 125mg IV Solu-Medrol and hour-long albuterol neb in the ED. Continued IV Rocephin 2g Q24H, oral doxycycline added on as well. Pulmonary toilet with incentive spirometry, flutter valve and scheduled nebs. 40mg IV Solu-Medrol Q8H. Blood culture pending. Aspiration and contact precautions. Wean off BiPAP as tolerated. -> currently on suppl. O2 via [place] Patient will ultimately need close pulmonology follow-up at time of discharge. Previously seen by [facility], on home Trelegy. Encouraged smoking cessation. Denies need for nicotine patch at this time. Pulmonary medicine consulted PFT 04/07/2023: Very severe obstructive lung dysfunction, insignificant bronchodilator response, increased lung volumes with air trapping, moderate decrease in DLCO FVC 2.47 L 56%, FEV1 0.95 L, 27%, FEV1/FVC 38, TLC 134%, RV 336%, RV/TLC 78, DLCO 52% Cont. IV solumedrol q12 hrs, add Mucomyst formoterol inh, budesonide neb guaifenesin cont. doxycyline for 5 days Due to chronic respiratory failure consequent to very severe COPD, FEV1 27% p redicted, patient now requires a noninvasive home ventilator. Patient would benefit greatly from noninvasive ventilation which would improve lung function and potentially reduce worsening of symptoms. A BiPAP would be ineffective as patient requires a volume targeted mode. Interruption of ventilator support would lead to a decline of health status. NIMV settings should be AVAPS-AE; Breath rate: auto; Inspiratory time:auto; Sigh: off; Tidal Volume: 350-450, PS min: 4-10 PS max: 12-20; EPAP min: 6-10; EPAP max: 10-16; AVAPS rate: 14 during sleep and as needed Elevated Troponin: Troponin elevated at 44.8 on arrival, likely reactive secondary to respiratory status, demand ischemia Initial EKG showed baseline artifact but no obvious acute ST changes. Continuous cardiac monitoring in place. Echo obtained - No regional wall motion abnormalities noted. LV is hyperdynamic. LVEF 65 to 70%. RV is normal in size and function. Doppler findings do not suggest pulmonary hypertension. Poss.New dg. of DM type 2 Possibly steroid induced. 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 Regular/balanced meals. 2.) Recheck hemoglobin A1c and fasting glucose x 3-6 months to guide need for diabetes medications. 3.) Follow-up with primary provider for further discussion and monitoring. Other Chronic Medical Conditions: HLD, GERD, chronic back pain and seasonal allergies --> Can continue home medications for these specific conditions. DVT Prophylaxis: SQ Lovenox Code Status: FULL CODE PCP: Octavio Miller MD Disposition: PCU/Telemetry Admission and Anticipated Discharge Date Admission Date: August 15, 2024 Subjective Pt seen in follow up of hypoxic resp. failure, hx of COPD, now posit for entero/rhinovirus + Accessory muscle use on admission Was placed on Bipap in ER, pulm. consulted Currently sitting up in bed in NAD On supplemental oxygen, 3 L, in NAD, able to converse Not able to ambulate to bathroom d/t shortness of breath Pt denies any chest pain, fever, chills, abd. pain, nausea, vomiting A1c elevated - ? new dg. of DM Family updated at the bedside yesterday Review of Systems Review of Systems: All systems reviewed & are unremarkable except as noted in Subjective Physical Exam Physical Exam: General Appearance: well nourished M in no apparent distress, on suppl. O2 Head: normocephalic, Atraumatic Eyes: normal inspection, EOMI Neck: supple Respiratory/Chest: Decreased coarse breath sounds, No accessory muscle use Cardiovascular: S1, S2, No murmur Abdomen/GI:Soft, Non tender, Bowel sounds present Extremities/Musculoskeletal:normal inspection, trace pedal edema Neurologic/Psych:AAOX3, grossly no focal neurological deficits Skin: warm, dry Results & Data Results & Data Vital Signs (Past 12 Hours) Vital Signs Temp Pulse Pulse Resp BP Pulse Ox O2 Del Method 08/18/24 07:56 36.6 C 78 18 115/65 96 BiPAP 08/18/24 07:27 80 08/18/24 07:19 72 18 95 08/18/24 07:19 72 18 95 BiPAP 08/18/24 04:01 36.5 C 71 16 110/77 97 BiPAP 08/18/24 03:45 78 17 95 08/18/24 00:29 64 15 95 BiPAP 08/17/24 23:54 78 08/17/24 23:54 Nasal Cannula, BiPAP 08/17/24 23:24 36.5 C 66 16 130/85 96 BiPAP 08/17/24 22:26 77 25 H 95 FiO2 08/18/24 07:56 08/18/24 07:27 08/18/24 07:19 30 08/18/24 07:19 30 08/18/24 04:01 08/18/24 03:45 30 08/18/24 00:29 30 08/17/24 23:54 08/17/24 23:54 30 08/17/24 23:24 08/17/24 22:26 30 Laboratory Results 08/18/24 08/18/24 08/17/24 Range/Units 07:31 05:33 21:19 WBC 13.66 H (4.8-10.8) K/ul RBC 4.63 L (4.70-6.10) M/uL Hgb 14.3 (14.0-18.0) g/dl Hct 42.5 (42.0-52.0) % MCV 91.8 (80.0-100.0) fL MCH 30.9 (25.0-34.0) pg MCHC 33.6 (32.0-36.0) g/dL RDW Std Deviation 46.2 (36.4-46.3) fL RDW Coeff of Mirtha 13.6 (11.5-14.5) % Plt Count 270 (130-400) K/uL MPV 10.6 (9.4-12.4) fL Sodium 139 (136-145) mmol/L Potassium 4.5 (3.5-5.1) mmol/L Chloride 99 (98-107) mmol/L Carbon Dioxide 32 (21-32) mmol/L Anion Gap 8 (3-11) BUN 32 H (6-23) mg/dl Creatinine 0.76 (0.6-1.4) mg/dl Est Cr Clr Drug Dosing 103.8 ml/min eGFR 104.83 BUN/Creatinine Ratio 42.1 H (10-20) Glucose 148 H (70-99(Fasting)) mg/dl POC Glucose 148 H 147 H (70-99) mg/dl Calcium 8.8 (8.6-10.3) mg/dl Phosphorus 4.3 (2.5-4.9) mg/dl Magnesium 2.2 (1.7-2.4) mg/dl 08/17/24 08/17/24 Range/Units 16:20 10:56 WBC (4.8-10.8) K/ul RBC (4.70-6.10) M/uL Hgb (14.0-18.0) g/dl Hct (42.0-52.0) % MCV (80.0-100.0) fL MCH (25.0-34.0) pg MCHC (32.0-36.0) g/dL RDW Std Deviation (36.4-46.3) fL RDW Coeff of Mirtha (11.5-14.5) % Plt Count (130-400) K/uL MPV (9.4-12.4) fL Sodium (136-145) mmol/L Potassium (3.5-5.1) mmol/L Chloride (98-107) mmol/L Carbon Dioxide (21-32) mmol/L Anion Gap (3-11) BUN (6-23) mg/dl Creatinine (0.6-1.4) mg/dl Est Cr Clr Drug Dosing ml/min eGFR BUN/Creatinine Ratio (10-20) Glucose (70-99(Fasting)) mg/dl POC Glucose 124 H 168 H (70-99) mg/dl Calcium (8.6-10.3) mg/dl Phosphorus (2.5-4.9) mg/dl Magnesium (1.7-2.4) mg/dl Medications Administered Current Inpatient Medications Acetaminophen (Acetaminophen 325 Mg Tab) 650 mg PO Q4H PRN PRN Reason: Pain or Fever Stop: 09/14/24 12:11 Acetylcysteine (Acetylcysteine 20% Inhal Soln 4ml Dispensed By Resp.) 5 ml INH Q12R [facility] Stop: 09/16/24 12:59 Last Admin: 08/18/24 07:19 Dose: 5 ml Albuterol (Albut/Ipratrop 3mg/0.5mg Neb 3 Ml Vial) 3 ml NEB Q6R [facility]; Protocol Stop: 09/14/24 12:59 Last Admin: 08/18/24 07:19 Dose: Not Given Budesonide (Budesonide 0.5 Mg/2 Ml Vial (Pulmicort)) 0.5 mg NEB BIDR [facility] Stop: 09/14/24 18:59 Last Admin: 08/18/24 07:18 Dose: 0.5 mg Dextrose (Dextrose 50% 50 Ml Syringe) 25 - 50 ml IV UD PRN; Protocol PRN Reason: Hypoglycemia Protocol Stop: 09/15/24 11:14 Doxycycline Hyclate (Doxycycline Hyclate 100 Mg Cap) 100 mg PO BID [facility] Stop: 08/22/24 12:29 Last Admin: 08/17/24 21:11 Dose: 100 mg Enoxaparin Sodium (Enoxaparin Inj 40 Mg/0.4 Ml Syr) 40 mg SQ Q24H [facility] Stop: 09/14/24 12:29 Last Admin: 08/17/24 14:05 Dose: 40 mg Formoterol Fumarate (Formoterol 20 Mcg/2 Ml Vial) 20 mcg INH BIDR [facility] Stop: 09/14/24 18:59 Last Admin: 08/18/24 07:19 Dose: 20 mcg Gabapentin (Gabapentin 300 Mg Cap) 300 mg PO TID [facility] Stop: 09/14/24 13:59 Last Admin: 08/17/24 21:13 Dose: 300 mg Glucagon (Glucagon For Inj 1 Mg Vial) 1 mg SQ UD PRN; Protocol PRN Reason: Hypoglycemia Protocol Stop: 09/15/24 11:14 Glucose (Glucose 40% Gel 15 Gm Tube) 15 - 30 gm PO UD PRN; Protocol PRN Reason: Hypoglycemia Protocol Stop: 09/15/24 11:14 Glucose (Glucose 10 Tab/Tube) 4 - 8 tab PO UD PRN; Protocol PRN Reason: Hypoglycemia Protocol Stop: 09/15/24 11:14 Guaifenesin (Guaifenesin 600 Mg Tabcr) 1,200 mg PO Q12 [facility] Stop: 09/14/24 20:59 Last Admin: 08/17/24 21:12 Dose: 1,200 mg Ceftriaxone Sodium (Rocephin) 2,000 mg in 50 mls @ 100 mls/hr IV Q24H [facility] Stop: 08/23/24 08:59 Last Infusion: 08/17/24 09:33 Dose: Infused Methylprednisolone 40 mg/ (Syringe) 0.64 mls @ 1.5 mls/min IV Q12 [facility] Stop: 09/16/24 20:59 Last Admin: 08/17/24 22:09 Dose: 1.5 mls/min Insulin Aspart (Insulin Aspart Per Unit Charge) 0 units SC ACHS [facility] Stop: 09/15/24 11:59 Last Admin: 08/18/24 08:34 Dose: 3 units Levalbuterol HCl (Levalbuterol Hcl 0.63 Mg/3 Ml Neb) 0.63 mg NEB Q4H PRN; Protocol PRN Reason: Shortness Of Breath Or Wheezing Stop: 09/14/24 12:11 Last Admin: 08/15/24 15:01 Dose: 0.63 mg Loratadine (Loratadine 10 Mg Tab) 10 mg PO DAILY PRN PRN Reason: allergies Stop: 09/14/24 12:11 Miscellaneous (Carbohydrates For Hypoglycemia ) 15 - 30 gm PO UD PRN PRN Reason: Hypoglycemia Treatment Stop: 09/15/24 11:14 Miscellaneous Information (Pharmacy Glycemic Mgmt Consult) 1 each N/A UD PRN; Protocol PRN Reason: Consult Stop: 09/15/24 10:58 Ondansetron HCl (Ondansetron Inj 2 Mg/Ml 2 Ml Vial) 4 mg IV Q6H PRN PRN Reason: Nausea Stop: 09/14/24 12:11 Pantoprazole Sodium (Pantoprazole 40 Mg Tab) 40 mg PO QAM [facility] Stop: 09/15/24 08:59 Last Admin: 08/17/24 08:37 Dose: 40 mg Polyethylene Glycol (Polyethylene (Miralax) 17 Gm Pack) 17 gm PO DAILY PRN PRN Reason: Constipation Stop: 09/14/24 12:11 Rosuvastatin Calcium (Rosuvastatin Calcium 10 Mg Tab) 10 mg PO DAILY [facility] Stop: 09/15/24 08:59 Last Admin: 08/17/24 08:37 Dose: 10 mg
--- NOTE | 2024-08-18 13:05 | Pharmacy Report ---
Pharmacy Glycemic Short Note 2 - Date of Service August 18, 2024 - Glycemic Short BSG Results (Last 24 hours): 08/17/24 08/17/24 08/18/24 16:20 21:19 05:33 Glucose 148 H POC Glucose 124 H 147 H 08/18/24 08/18/24 07:31 11:09 Glucose POC Glucose 148 H 185 H OUTPATIENT ANTIDIABETIC REGIMEN: * n/a HbA1C: 7.5% (08/16/24) ASSESSMENT: 08/18/24: * Blood sugars well-controlled over past 36 hours (ranging 124-168 mg/dL) * Received 15 units of insulin yesterday (5 units of basal and 10 units of prandial/correctional bolus) * Fasting blood sugar of 148 mg/dL, will increase basal today * Steroids (methylprednisolone 40 mg IV) reduced from TID to BID yesterday, continued 08/16/24: * Pt is a 58 year old male admitted with rhinovirus/enterovirus COPD exacerbation. New diabetes diagnosis- not on anti hyperglycemic medications at home. Pharmacy consulted to assist with inpatient glycemic management in setting of steroids. * BSGs 145-164 mg/dL so far this admission (no additional POCs were obtained today). * Receiving methylprednisolone 40mg IV TID and antibiotics. Currently NPO. * Initiate Novolog q6 moderate stress scale. Hold basal for now. PLAN FOR INPATIENT GLYCEMIC CONTROL: * Hold outpatient oral diabetes medications * Basal insulin * 8 units SC daily * Bolus insulin * NovoLog per scale ACHS or Q6hrs while NPO * Goal Range: Low 110 mg/dL - High 140 mg/dL * Correction Factor: 45 mg/dL/unit * Nutritional / Prandial insulin per carb ratio of 1 unit per 12 grams CHO consumed
[2024-08-19 06:27] LABS: Hematocrit (blood only) 42.5 % (42.0-52.0); Hemoglobin 14.5 g/dl (14.0-18.0); Mean Corpuscular Hemoglobin 30.9 pg (25.0-34.0); Mean Corpuscular Hgb Conc 34.1 g/dL (32.0-36.0); Mean Corpuscular Volume 90.4 fL (80.0-100.0); Mean Platelet Volume 10.4 fL (9.4-12.4); Platelet Count 256 K/uL (130-400); RDW Coefficient of Variation 13.2 % (11.5-14.5); RDW Standard Deviation 43.8 fL (36.4-46.3)
[2024-08-19 06:46] LABS: BUN Creatinine Ratio 42.1 (10-20); Calcium 8.9 mg/dl (8.6-10.3); Creatinine Clr Calc Pharmacy 103.8 ml/min; Magnesium 2.2 mg/dl (1.7-2.4); Potassium 4.4 mmol/L (3.5-5.1)
--- NOTE | 2024-08-19 07:47 | Hospitalist Progress Note ---
Date of Service August 19, 2024 Assessment & Plan (1) Rhinovirus infection: (2) Respiratory acidosis: (3) Acute hypoxic respiratory failure: (4) Elevated troponin: Plan Beverly Fermin is a 58y/o M with PMHx significant for severe COPD with emphysema, HLD, GERD, diverticulitis, DDD, major depressive disorder, tobacco use disorder and chronic back pain who presented to the ED via EMS secondary to worsening SOB/dyspnea and was found to be in acute hypoxic respiratory failure on arrival. Enterovirus/Rhinovirus Infection & Respiratory Acidosis Acute Hypoxic Respiratory Failure ISO Severe COPD w/ Emphysema : Patient's O2 sat was 88% on arrival to the ED. He was subsequently placed on BiPAP with improvement in his breathing. WBC 22.77k, RVP positive for entero-/rhinovirus. VBG showed respiratory acidosis with a pH of 7.27 and pCO2 of 71. CXR showed advanced emphysema with no active disease. Chest CTA 1. No pulmonary emboli identified. 2. Advanced emphysema with bronchitis and bibasilar mucous plugging. Procalcitonin negative BNP 91. Lactate negative. S/p 2g IV Rocephin, 125mg IV Solu-Medrol and hour-long albuterol neb in the ED. Continued IV Rocephin 2g Q24H, oral doxycycline added on as well. Pulmonary toilet with incentive spirometry, flutter valve and scheduled nebs. 40mg IV Solu-Medrol Q8H. Blood culture pending. Aspiration and contact precautions. Wean off BiPAP as tolerated. -> currently on suppl. O2 via [place] Patient will ultimately need close pulmonology follow-up at time of discharge. Previously seen by [facility], on home Trelegy. Encouraged smoking cessation. Denies need for nicotine patch at this time. Pulmonary medicine consulted PFT 04/07/2023: Very severe obstructive lung dysfunction, insignificant bronchodilator response, increased lung volumes with air trapping, moderate decrease in DLCO FVC 2.47 L 56%, FEV1 0.95 L, 27%, FEV1/FVC 38, TLC 134%, RV 336%, RV/TLC 78, DLCO 52% IV solumedrol q12 hrs -> switch to prednisone formoterol inh, budesonide neb guaifenesin add Incruse ellipta cont. doxycyline for 5 days Due to chronic respiratory failure consequent to very severe COPD, FEV1 27% predicted, patient now requires a noninvasive home ventilator. Patient would benefit greatly from noninvasive ventilation which would improve lung function and potentially reduce worsening of symptoms. A BiPAP would be ineffective as patient requires a volume targeted mode. Interruption of ventilator support would lead to a decline of health status. NIMV settings should be AVAPS-AE; Breath rate: auto; Inspiratory time:auto; Sigh: off; Tidal Volume: 350-450, PS min: 4-10 PS max: 12-20; EPAP min: 6-10; EPAP max: 10-16; AVAPS rate: 14 during sleep and as needed Elevated Troponin: Troponin elevated at 44.8 on arrival, likely reactive secondary to respiratory status, demand ischemia Initial EKG showed baseline artifact but no obvious acute ST changes. Continuous cardiac monitoring in place. Echo obtained - No regional wall motion abnormalities noted. LV is hyperdynamic. LVEF 65 to 70%. RV is normal in size and function. Doppler findings do not suggest pulmonary hypertension. Poss.New dg. of DM type 2 Possibly steroid induced. 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 Regular/balanced meals. 2.) Recheck hemoglobin A1c and fasting glucose x 3-6 months to guide need for diabetes medications. 3.) Follow-up with primary provider for further discussion and monitoring. Other Chronic Medical Conditions: HLD, GERD, chronic back pain and seasonal allergies --> Can continue home medications for these specific conditions. DVT Prophylaxis: SQ Lovenox Code Status: FULL CODE PCP: Octavio Miller MD Disposition: PCU/Telemetry Admission and Anticipated Discharge Date Admission Date: August 15, 2024 Subjective Pt seen in follow up of hypoxic resp. failure, hx of COPD, now posit for entero/rhinovirus + Accessory muscle use on admission Was placed on Bipap in ER, pulm. consulted Currently sitting up in bed in NAD On supplemental oxygen, 3 L, in NAD, able to converse Ambulated to bathroom only once last night d/t shortness of breath Pt denies any chest pain, fever, chills, abd. pain, nausea, vomiting A1c elevated - ? new dg. of DM Family updated at the bedside over the phone Pulmonary med. following Review of Systems Review of Systems: All systems reviewed & are unremarkable except as noted in Subjective Physical Exam Physical Exam: General Appearance: well nourished M in no apparent distress, on suppl. O2 Head: normocephalic, Atraumatic Eyes: normal inspection, EOMI Neck: supple Respiratory/Chest: Decreased breath sounds, No accessory muscle use Cardiovascular: S1, S2, No murmur Abdomen/GI:Soft, Non tender, Bowel sounds present Extremities/Musculoskeletal:normal inspection, trace pedal edema Neurologic/Psych:AAOX3, grossly no focal neurological deficits Skin: warm, dry Results & Data Results & Data Vital Signs (Past 12 Hours) Vital Signs Temp Pulse Pulse Pulse Resp BP BP 08/19/24 07:18 72 20 08/19/24 07:12 72 08/19/24 03:56 71 18 08/19/24 03:23 36.4 C L 75 20 128/78 08/19/24 01:10 70 14 08/18/24 23:10 36.9 C 79 18 112/84 08/18/24 22:37 79 20 08/18/24 21:00 86 08/18/24 21:00 08/18/24 20:02 36.5 C 94 H 19 142/105 H Pulse Ox O2 Del Method O2 Flow Rate FiO2 08/19/24 07:18 94 Nasal Cannula 3 08/19/24 07:12 08/19/24 03:56 95 30 08/19/24 03:23 97 CPAP 08/19/24 01:10 97 BiPAP 30 08/18/24 23:10 94 BiPAP 08/18/24 22:37 95 30 08/18/24 21:00 08/18/24 21:00 Nasal Cannula, BiPAP 3 08/18/24 20:02 93 Nasal Cannula 3 Laboratory Results 08/19/24 08/19/24 08/18/24 Range/Units 07:45 06:08 20:45 WBC 12.60 H (4.8-10.8) K/ul RBC 4.70 (4.70-6.10) M/uL Hgb 14.5 (14.0-18.0) g/dl Hct 42.5 (42.0-52.0) % MCV 90.4 (80.0-100.0) fL MCH 30.9 (25.0-34.0) pg MCHC 34.1 (32.0-36.0) g/dL RDW Std Deviation 43.8 (36.4-46.3) fL RDW Coeff of Mirtha 13.2 (11.5-14.5) % Plt Count 256 (130-400) K/uL MPV 10.4 (9.4-12.4) fL Sodium 137 (136-145) mmol/L Potassium 4.4 (3.5-5.1) mmol/L Chloride 100 (98-107) mmol/L Carbon Dioxide 31 (21-32) mmol/L Anion Gap 6 (3-11) BUN 32 H (6-23) mg/dl Creatinine 0.76 (0.6-1.4) mg/dl Est Cr Clr Drug Dosing 103.8 ml/min eGFR 104.83 BUN/Creatinine Ratio 42.1 H (10-20) Glucose 157 H (70-99(Fasting)) mg/dl POC Glucose Pending 210 H (70-99) mg/dl Calcium 8.9 (8.6-10.3) mg/dl Phosphorus 4.0 (2.5-4.9) mg/dl Magnesium 2.2 (1.7-2.4) mg/dl 08/18/24 08/18/24 Range/Units 16:23 11:09 WBC (4.8-10.8) K/ul RBC (4.70-6.10) M/uL Hgb (14.0-18.0) g/dl Hct (42.0-52.0) % MCV (80.0-100.0) fL MCH (25.0-34.0) pg MCHC (32.0-36.0) g/dL RDW Std Deviation (36.4-46.3) fL RDW Coeff of Mirtha (11.5-14.5) % Plt Count (130-400) K/uL MPV (9.4-12.4) fL Sodium (136-145) mmol/L Potassium (3.5-5.1) mmol/L Chloride (98-107) mmol/L Carbon Dioxide (21-32) mmol/L Anion Gap (3-11) BUN (6-23) mg/dl Creatinine (0.6-1.4) mg/dl Est Cr Clr Drug Dosing ml/min eGFR BUN/Creatinine Ratio (10-20) Glucose (70-99(Fasting)) mg/dl POC Glucose 89 185 H (70-99) mg/dl Calcium (8.6-10.3) mg/dl Phosphorus (2.5-4.9) mg/dl Magnesium (1.7-2.4) mg/dl Medications Administered Current Inpatient Medications Acetaminophen (Acetaminophen 325 Mg Tab) 650 mg PO Q4H PRN PRN Reason: Pain or Fever Stop: 09/14/24 12:11 Acetylcysteine (Acetylcysteine 20% Inhal Soln 4ml Dispensed By Resp.) 5 ml INH Q12R [facility] Stop: 09/16/24 12:59 Last Admin: 08/19/24 07:15 Dose: 5 ml Albuterol (Albut/Ipratrop 3mg/0.5mg Neb 3 Ml Vial) 3 ml NEB Q6R [facility]; Protocol Stop: 09/14/24 12:59 Last Admin: 08/19/24 07:15 Dose: Not Given Budesonide (Budesonide 0.5 Mg/2 Ml Vial (Pulmicort)) 0.5 mg NEB BIDR [facility] Stop: 09/14/24 18:59 Last Admin: 08/19/24 07:15 Dose: 0.5 mg Dextrose (Dextrose 50% 50 Ml Syringe) 25 - 50 ml IV UD PRN; Protocol PRN Reason: Hypoglycemia Protocol Stop: 09/15/24 11:14 Doxycycline Hyclate (Doxycycline Hyclate 100 Mg Cap) 100 mg PO BID [facility] Stop: 08/22/24 12:29 Last Admin: 08/18/24 19:54 Dose: 100 mg Enoxaparin Sodium (Enoxaparin Inj 40 Mg/0.4 Ml Syr) 40 mg SQ Q24H [facility] Stop: 09/14/24 12:29 Last Admin: 08/18/24 13:13 Dose: 40 mg Formoterol Fumarate (Formoterol 20 Mcg/2 Ml Vial) 20 mcg INH BIDR [facility] Stop: 09/14/24 18:59 Last Admin: 08/19/24 07:15 Dose: 20 mcg Gabapentin (Gabapentin 300 Mg Cap) 300 mg PO TID [facility] Stop: 09/14/24 13:59 Last Admin: 08/18/24 19:54 Dose: 300 mg Glucagon (Glucagon For Inj 1 Mg Vial) 1 mg SQ UD PRN; Protocol PRN Reason: Hypoglycemia Protocol Stop: 09/15/24 11:14 Glucose (Glucose 40% Gel 15 Gm Tube) 15 - 30 gm PO UD PRN; Protocol PRN Reason: Hypoglycemia Protocol Stop: 09/15/24 11:14 Glucose (Glucose 10 Tab/Tube) 4 - 8 tab PO UD PRN; Protocol PRN Reason: Hypoglycemia Protocol Stop: 09/15/24 11:14 Guaifenesin (Guaifenesin 600 Mg Tabcr) 1,200 mg PO Q12 [facility] Stop: 09/14/24 20:59 Last Admin: 08/18/24 19:53 Dose: 1,200 mg Methylprednisolone 40 mg/ (Syringe) 0.64 mls @ 1.5 mls/min IV Q12 [facility] Stop: 09/16/24 20:59 Last Admin: 08/18/24 19:52 Dose: 1.5 mls/min Insulin Aspart (Insulin Aspart Per Unit Charge) 0 units SC ACHS [facility] Stop: 09/15/24 11:59 Last Admin: 08/18/24 21:00 Dose: 2 units Levalbuterol HCl (Levalbuterol Hcl 0.63 Mg/3 Ml Neb) 0.63 mg NEB Q4H PRN; Protocol PRN Reason: Shortness Of Breath Or Wheezing Stop: 09/14/24 12:11 Last Admin: 08/15/24 15:01 Dose: 0.63 mg Loratadine (Loratadine 10 Mg Tab) 10 mg PO DAILY PRN PRN Reason: allergies Stop: 09/14/24 12:11 Miscellaneous (Carbohydrates For Hypoglycemia ) 15 - 30 gm PO UD PRN PRN Reason: Hypoglycemia Treatment Stop: 09/15/24 11:14 Miscellaneous Information (Pharmacy Glycemic Mgmt Consult) 1 each N/A UD PRN; Protocol PRN Reason: Consult Stop: 09/15/24 10:58 Ondansetron HCl (Ondansetron Inj 2 Mg/Ml 2 Ml Vial) 4 mg IV Q6H PRN PRN Reason: Nausea Stop: 09/14/24 12:11 Pantoprazole Sodium (Pantoprazole 40 Mg Tab) 40 mg PO QAM [facility] Stop: 09/15/24 08:59 Last Admin: 08/18/24 09:47 Dose: 40 mg Polyethylene Glycol (Polyethylene (Miralax) 17 Gm Pack) 17 gm PO DAILY PRN PRN Reason: Constipation Stop: 09/14/24 12:11 Rosuvastatin Calcium (Rosuvastatin Calcium 10 Mg Tab) 10 mg PO DAILY [facility] Stop: 09/15/24 08:59 Last Admin: 08/18/24 09:47 Dose: 10 mg
--- NOTE | 2024-08-19 08:31 | Critical Care Progress Note ---
Date of Service August 19, 2024 Assessment & Plan (1) Rhinovirus infection: (2) COPD exacerbation: (3) Acute respiratory failure with hypoxia and hypercapnia: (4) COPD with emphysema: (5) Tobacco use disorder: (6) Acute bronchitis: Plan Impression: 58-year-old male with advanced COPD and ongoing tobacco abuse admitted with exacerbation and hypoxemic/hypercarbic respiratory failure. His hypercarbia has resolved. He is using noninvasive positive pressure ventilation at night which she feels is beneficial. He is developing bronchospasm associated with nebulized Mucomyst. Recommendations: 1. Acute exacerbation of COPD: Continue DuoNebs to be changed to as needed. Continue perform wrist and budesonide. Add Incruse given significant hyperinflation and air trapping. Would recommend pulmonary rehab at outpatient. Complete 5 days of doxycycline for acute exacerbation of COPD. I will transition steroids from methylprednisolone to oral prednisone at this point in time. Discontinue nebulized Mucomyst given potential bronchospasm associated with this medication and lack of any significant benefit from the patient's perspective. 2. Hypoxemic/hypercarbic respiratory failure: Continue noninvasive positive pressure ventilation at night. Patient will require outpatient pulmonary follow-up. Ambulate as tolerated. Will need formal assessment for supplemental oxygen prior to discharge. Would avoid oxygen saturations above 92%. 3. Smoking cessation reinforced. The patient states he is motivated to consider smoking cessation and will discontinue his tobacco habit at discharge. Will follow with you Admission and Anticipated Discharge Date Admission Date: August 15, 2024 Subjective Patient seen and examined. EMR reviewed. Discussed with off going skip pitman. The patient is sitting up eating breakfast this morning. He states his breathing is better. He used noninvasive positive pressure ventilation last evening and definitely felt that it was beneficial. He believes that he becomes significantly more bronchospastic with nebulized Mucomyst, and known side effect. He overall feels like he is making some progress. He is able to ambulate to the restroom. He is using oxygen and is inquiring about a portable oxygen concentrator to go home with. He states he is committed to smoking cessation. He denies nausea vomiting or diarrhea. No chest pain or palpitations. His cough is productive of some scant white mucus without hemoptysis Review of Systems 2 Review of Systems: All systems reviewed & are unremarkable except as noted in Subjective Physical Exam 2 Constitutional: WD/WN, vitals as above Neck: trachea midline, no thyromegaly Respiratory: no labored breathing, no cough and not tachypneic A uscultation: + diminished lung sounds and + wheezes; no rhonchi Cardiovascular: RRR, no murmur, no edema Gastrointestinal (Abdomen): normal bowel sounds, soft, nontender, no hepatosplenomegaly Musculoskeletal: Extremities: extremities normal to inspection Skin: no rashes, warm and dry Neurologic: Nonfocal exam Lymphatic: no cervical lymphadenopathy Results & Data Results & Data Vital Signs (Past 12 Hours) Vital Signs Temp Pulse Pulse Pulse Resp BP Pulse Ox 08/19/24 07:45 36.5 C 79 18 151/95 H 97 08/19/24 07:18 72 20 94 08/19/24 07:12 72 08/19/24 03:56 71 18 95 08/19/24 03:23 36.4 C L 75 20 128/78 97 08/19/24 01:10 70 14 97 08/18/24 23:10 36.9 C 79 18 112/84 94 08/18/24 22:37 79 20 95 08/18/24 21:00 86 08/18/24 21:00 O2 Del Method O2 Flow Rate FiO2 08/19/24 07:45 Nasal Cannula 3 08/19/24 07:18 Nasal Cannula 3 08/19/24 07:12 08/19/24 03:56 30 08/19/24 03:23 CPAP 08/19/24 01:10 BiPAP 30 08/18/24 23:10 BiPAP 08/18/24 22:37 30 08/18/24 21:00 08/18/24 21:00 Nasal Cannula, BiPAP 3 Laboratory Results 08/19/24 06:08 08/19/24 06:08 Diagnostic Findings No new imaging Coding Level of Care Code 88703 SUB INP/OBS CARE 3/50MIN Diagnoses Rhinovirus infection B34.8 COPD exacerbation J44.1 Acute respiratory failure with hypoxia and hypercapnia J96.01; J96.02 COPD with emphysema J43.9 Tobacco use disorder F17.200 Acute bronchitis J20.9
[2024-08-19] MEDS: LANTUS PER UNIT CHARGE SC SCH (08:40)
[2024-08-19] MEDS: predniSONE 20 MG TAB PO SCH (09:22)
[2024-08-19] MEDS: UMECLIDINIUM BROMIDE 62.5MCG/BLISTER 7 PUFFS/INHALER INH SCH (09:23)
--- NOTE | 2024-08-19 12:13 | Electrocardiogram Report ---
Test Reason : Blood Pressure : */* mmHG Vent. Rate : 64 BPM Atrial Rate : 64 BPM P-R Int : 116 ms QRS Dur : 80 ms QT Int : 422 ms P-R-T Axes : 88 83 81 degrees QTcB Int : 435 ms Sinus rhythm with occasional Premature ventricular complexes Abnormal ECG When compared with ECG of 16-Aug-2024 05:48, Premature ventricular complexes are now Present Confirmed by Octavio Munoz ([id number] on 08/19/2024 12:13:37 PM Referred By: REFERRED SELF Confirmed By: Octavio Munoz
[2024-08-19] MEDS: INSULIN ASPART PER UNIT CHARGE SC SCH (12:17)
--- NOTE | 2024-08-19 13:00 | Pharmacy Report ---
Pharmacy Glycemic Short Note 2 - Date of Service August 19, 2024 - Glycemic Short BSG Results (Last 24 hours): 08/18/24 08/18/24 08/19/24 16:23 20:45 06:08 Glucose 157 H POC Glucose 89 210 H 08/19/24 08/19/24 07:45 11:35 Glucose POC Glucose 236 H 114 H OUTPATIENT ANTIDIABETIC REGIMEN: * n/a HbA1c: 7.5% (08/16/24) ASSESSMENT: 08/19: * Beverly received 20 units of insulin yesterday, 8 basal + 12 bolus. BSGs were 681-082-32-210 mg/dL. * Fasting BSG this AM was 236 mg/dL. Believe this is an erroneous result as serum BSG was 157 mg/dL. Did not make any adjustments to basal regimen. * IV Solumedrol was discontinued and Prednisone 20 mg PO AM was started this morning. * Due to dinner BSG dropping significantly yesterday, will go with tighter carb cover with breakfast only and loosen the carb coverage the rest of the day. 08/18: * Blood sugars well-controlled over past 36 hours (ranging 124-168 mg/dL) * Received 15 units of insulin yesterday (5 units of basal and 10 units of prandial/correctional bolus) * Fasting blood sugar of 148 mg/dL, will increase basal today * Steroids (methylprednisolone 40 mg IV) reduced from TID to BID yesterday, continued 08/16: * Pt is a 58 year old male admitted with rhinovirus/enterovirus COPD exacerbation. New diabetes diagnosis- not on anti hyperglycemic medications at home. Pharmacy consulted to assist with inpatient glycemic management in setting of steroids. * BSGs 145-164 mg/dL so far this admission (no additional POCs were obtained today). * Receiving methylprednisolone 40mg IV TID and antibiotics. Currently NPO. * Initiate Novolog q6 moderate stress scale. Hold basal for now. PLAN FOR INPATIENT GLYCEMIC CONTROL: * Basal insulin * 8 units SC daily * Bolus insulin * NovoLog per scale ACHS or Q6hrs while NPO * Goal Range: Low 110 mg/dL - High 140 mg/dL * Breakfast: Correction Factor: 45; Carb Ratio: 12 * Lunch, Dinner, HS: Correction Factor: 45; Carb Ratio: 15
[2024-08-20 07:48] LABS: Hematocrit (blood only) 44.1 % (42.0-52.0); Hemoglobin 14.4 g/dl (14.0-18.0); Mean Corpuscular Hemoglobin 29.9 pg (25.0-34.0); Mean Corpuscular Hgb Conc 32.7 g/dL (32.0-36.0); Mean Corpuscular Volume 91.5 fL (80.0-100.0); Mean Platelet Volume 10.6 fL (9.4-12.4); Platelet Count 255 K/uL (130-400); RDW Coefficient of Variation 13.1 % (11.5-14.5); RDW Standard Deviation 44.3 fL (36.4-46.3); Red Blood Count 4.82 M/uL (4.70-6.10); White Blood Count 13.24 K/ul (4.8-10.8)
[2024-08-20 08:02] LABS: BUN Creatinine Ratio 41.1 (10-20); Calcium 8.9 mg/dl (8.6-10.3); Magnesium 2.1 mg/dl (1.7-2.4); Phosphorus 2.9 mg/dl (2.5-4.9); Potassium 3.6 mmol/L (3.5-5.1)
[2024-08-20] MEDS ORDERED: UMECLIDINIUM/VILANTEROL 62.5/25MCG 7 PUFFS/INHALER INH SCH (09:00)
--- NOTE | 2024-08-20 09:01 | Pulmonology Progress Note ---
Date of Service August 20, 2024 Assessment & Plan (1) Rhinovirus infection: (2) COPD exacerbation: (3) COPD with emphysema: (4) Tobacco use disorder: (5) Acute bronchitis: (6) Chronic respiratory failure with hypoxia and hypercapnia: Plan Impression: 58-year-old male with advanced COPD and ongoing tobacco abuse admitted with exacerbation and hypoxemic/hypercarbic respiratory failure. His hypercarbia has resolved. He is using noninvasive positive pressure ventilation at night which she feels is beneficial. He appears to be at his chronic baseline. No evidence of ongoing bronchospasm Recommendations: 1. Acute exacerbation of COPD: Continue DuoNebs as needed. Transition from Perforomist and budesonide to Breo and continue Incruse. The patient can go back to his home trilogy at discharge. Would recommend pulmonary rehab at outpatient, this can be arranged by his outpatient pulmonary providers at [facility]. Complete 5 days of doxycycline for acute exacerbation of COPD. Additional 5 days of prednisone. 2. Acute on chronic hypoxemic/hypercarbic respiratory failure: Continue noninvasive positive pressure ventilation at night. Patient will require outpatient pulmonary follow-up with [facility] pulmonary. Ambulate as tolerated. Will need formal assessment for supplemental oxygen prior to discharge. Would avoid oxygen saturations above 92%. 3. Smoking cessation reinforced. The patient states he is motivated to consider smoking cessation and will discontinue his tobacco habit at discharge. Patient appears to have achieved maximal benefit from inpatient hospitalization. Recommend formal two-step and set up with supplemental oxygen if the patient meets criteria and dismissal from the hospital with outpatient follow-up with [facility] pulmonary. The above recommendations and plan were discussed with patient and his . Questions were answered to the best my ability and they expressed understanding with the plan. Pulmonary will sign off. Feel free to contact us with questions or concerns Admission and Anticipated Discharge Date Admission Date: August 15, 2024 Subjective Patient seen and examined. EMR reviewed. Discussed with patient and spouse at bedside. The patient reports that he is doing okay. He feels like he is at or approaching his baseline. Review of Systems 2 Review of Systems: All systems reviewed & are unremarkable except as noted in Subjective Physical Exam 2 Constitutional: WD/WN, vitals as above Neck: trachea midline, no thyromegaly Respiratory: no labored breathing, no cough and not tachypneic A uscultation: + diminished lung sounds and + wheezes; no rhonchi Cardiovascular: RRR, no murmur, no edema Gastrointestinal (Abdomen): normal bowel sounds, soft, nontender, no hepatosplenomegaly Musculoskeletal: Extremities: extremities normal to inspection Skin: no rashes, warm and dry Lymphatic: no cervical lymphadenopathy Results & Data Results & Data Vital Signs (Past 12 Hours) Vital Signs Temp Pulse Pulse Pulse Resp BP BP 08/20/24 07:41 36.6 C 74 18 114/75 08/20/24 07:19 73 18 08/20/24 03:41 63 15 08/20/24 03:34 36.4 C L 68 18 115/80 08/19/24 23:14 66 16 08/19/24 22:40 36.6 C 76 16 136/101 H Pulse Ox O2 Del Method O2 Flow Rate FiO2 08/20/24 07:41 96 Nasal Cannula 3 08/20/24 07:19 95 Nasal Cannula 3 08/20/24 03:41 97 30 08/20/24 03:34 95 Room Air, BiPAP 08/19/24 23:14 97 30 08/19/24 22:40 96 Nasal Cannula 3.0 Laboratory Results 08/20/24 07:11 08/20/24 07:11 Diagnostic Findings No new imaging PG Care Time/CCT Total # of Minutes Spent Total Time Spent with Patient: Total time spent is greater than 50% in coordination of care (as documented) at patient's floor/unit and/or counseling patient: Coding Level of Care Code 10319 SUB INP/OBS CARE 2/35MIN Diagnoses Rhinovirus infection B34.8 COPD exacerbation J44.1 COPD with emphysema J43.9 Tobacco use disorder F17.200 Acute bronchitis J20.9 Chronic respiratory failure with hypoxia and hypercapnia J96.11; J96.12
[2024-08-20] MEDS: INSULIN ASPART PER UNIT CHARGE SC SCH ×2 (09:06→17:22)
[2024-08-20] MEDS: POTASSIUM CHLORIDE CRTAB 20 MEQ TABCR PO STA (09:07)
[2024-08-20] MEDS: FLUTICASONE/VILANTEROL 100/25MCG 14 PUFFS/INHALER INH SCH (10:35)
--- NOTE | 2024-08-20 12:13 | Hospitalist Progress Note ---
Date of Service August 20, 2024 Assessment & Plan (1) Rhinovirus infection: (2) Respiratory acidosis: (3) Acute hypoxic respiratory failure: (4) Elevated troponin: Plan Beverly Fermin is a 58y/o M with PMHx significant for severe COPD with emphysema, HLD, GERD, diverticulitis, DDD, major depressive disorder, tobacco use disorder and chronic back pain who presented to the ED via EMS secondary to worsening SOB/dyspnea and was found to be in acute hypoxic respiratory failure on arrival. Enterovirus/Rhinovirus Infection & Respiratory Acidosis Acute Hypoxic Respiratory Failure ISO Severe COPD w/ Emphysema : Patient's O2 sat was 88% on arrival to the ED. He was subsequently placed on BiPAP with improvement in his breathing. WBC 22.77k, RVP positive for entero-/rhinovirus. VBG showed respiratory acidosis with a pH of 7.27 and pCO2 of 71. CXR showed advanced emphysema with no active disease. Chest CTA 1. No pulmonary emboli identified. 2. Advanced emphysema with bronchitis and bibasilar mucous plugging. Procalcitonin negative BNP 91. Lactate negative. S/p 2g IV Rocephin, 125mg IV Solu-Medrol and hour-long albuterol neb in the ED. Continued IV Rocephin 2g Q24H, oral doxycycline added on as well. Pulmonary toilet with incentive spirometry, flutter valve and scheduled nebs. 40mg IV Solu-Medrol Q8H. Blood culture pending. Aspiration and contact precautions. Wean off BiPAP as tolerated. -> currently on suppl. O2 via NC Patient will ultimately need close pulmonology follow-up at time of discharge. Previously seen by [facility], on home Tre[place]. Encouraged smoking cessation. Denies need for nicotine patch at this time. Pulmonary medicine consulted PFT 04/07/2023: Very severe obstructive lung dysfunction, insignificant bronchodilator response, increased lung volumes with air trapping, moderate decrease in DLCO FVC 2.47 L 56%, FEV1 0.95 L, 27%, FEV1/FVC 38, TLC 134%, RV 336%, RV/TLC 78, DLCO 52% IV solumedrol q12 hrs -> switch to prednisone formoterol inh, budesonide neb -. transition to breo. cont Incruse ellipta while inpt . can go back on trilogy on DC guaifenesin cont. doxycyline for 5 days Due to chronic respiratory failure consequent to very severe COPD, FEV1 27% predicted, patient now requires a noninvasive home ventilator. Patient would benefit greatly from noninvasive ventilation which would improve lung function and potentially reduce worsening of symptoms. A BiPAP would be ineffective as patient requires a volume targeted mode. Interruption of ventilator support would lead to a decline of health status. NIMV settings should be AVAPS-AE; Breath rate: auto; Inspiratory time:auto; Sigh: off; Tidal Volume: 350-450, PS min: 4-10 PS max: 12-20; EPAP min: 6-10; E PAP max: 10-16; AVAPS rate: 14 during sleep and as needed Elevated Troponin: Troponin elevated at 44.8 on arrival, likely reactive secondary to respiratory status, demand ischemia Initial EKG showed baseline artifact but no obvious acute ST changes. Continuous cardiac monitoring in place. Echo obtained - No regional wall motion abnormalities noted. LV is h yperdynamic. LVEF 65 to 70%. RV is normal in size and function. Doppler findings do not suggest pulmonary hypertension. Poss.New dg. of DM type 2 Possibly steroid induced. Hgb A1c 7.5% cont. 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 Regular/balanced meals. 2.) Recheck hemoglobin A1c and fasting glucose x 3-6 months to guide need for diabetes medications. 3.) Follow-up with primary provider for further discussion and monitoring. Other Chronic Medical Conditions: HLD, GERD, chronic back pain and seasonal allergies --> Can continue home medications for these specific conditions. DVT Prophylaxis: SQ Lovenox Code Status: FULL CODE PCP: Octavio Miller MD Disposition: PCU/Telemetry Admission and Anticipated Discharge Date Admission Date: August 15, 2024 Subjective Pt seen in follow up of hypoxic resp. failure, hx of COPD, now posit for entero/rhinovirus + Accessory muscle use on admission Was placed on Bipap in ER, pulm. consulted Currently sitting up in bed in NAD On supplemental oxygen, 3 L, in NAD, able to converse Ambulated to bathroom but not able to do much d/t shortness of breath Pt denies any chest pain, fever, chills, abd. pain, nausea, vomiting A1c elevated - ? new dg. of DM Family updated at the bedside. Pulmonary med. following. Pt and family feel that pt is not ready for dc yet. Review of Systems Review of Systems: All systems reviewed & are unremarkable except as noted in Subjective Physical Exam Physical Exam: General Appearance: well nourished M in no apparent distress, on suppl. O2 Head: normocephalic, Atraumatic Eyes: normal inspection, EOMI Neck: supple Respiratory/Chest: Decreased breath sounds, mild wheezing. No accessory muscle use Cardiovascular: S1, S2, No murmur Abdomen/GI:Soft, Non tender, Bowel sounds present Extremities/Musculoskeletal:normal inspection, trace pedal edema Neurologic/Psych:AAOX3, grossly no focal neurological deficits Skin: warm, dry Results & Data Results & Data Vital Signs (Past 12 Hours) Vital Signs Temp Pulse Pulse Pulse Resp BP BP 08/20/24 07:45 70 08/20/24 07:45 08/20/24 07:41 36.6 C 74 18 114/75 08/20/24 07:19 73 18 08/20/24 03:41 63 15 08/20/24 03:34 36.4 C L 68 18 115/80 Pulse Ox O2 Del Method O2 Flow Rate FiO2 08/20/24 07:45 08/20/24 07:45 Nasal Cannula 3 08/20/24 07:41 96 Nasal Cannula 3 08/20/24 07:19 95 Nasal Cannula 3 08/20/24 03:41 97 30 08/20/24 03:34 95 Room Air, BiPAP Laboratory Results 08/20/24 08/20/24 08/20/24 Range/Units 11:43 07:30 07:11 WBC 13.24 H (4.8-10.8) K/ul RBC 4.82 (4.70-6.10) M/uL Hgb 14.4 (14.0-18.0) g/dl Hct 44.1 (42.0-52.0) % MCV 91.5 (80.0-100.0) fL MCH 29.9 (25.0-34.0) pg MCHC 32.7 (32.0-36.0) g/dL RDW Std Deviation 44.3 (36.4-46.3) fL RDW Coeff of Mirtha 13.1 (11.5-14.5) % Plt Count 255 (130-400) K/uL MPV 10.6 (9.4-12.4) fL Sodium 138 (136-145) mmol/L Potassium 3.6 (3.5-5.1) mmol/L Chloride 100 (98-107) mmol/L Carbon Dioxide 34 H (21-32) mmol/L Anion Gap 4 (3-11) BUN 30 H (6-23) mg/dl Creatinine 0.73 (0.6-1.4) mg/dl Est Cr Clr Drug Dosing 108.0 ml/min eGFR 106.12 BUN/Creatinine Ratio 41.1 H (10-20) Glucose 73 (70-99(Fasting)) mg/dl POC Glucose 95 111 H (70-99) mg/dl Calcium 8.9 (8.6-10.3) mg/dl Phosphorus 2.9 D (2.5-4.9) mg/dl Magnesium 2.1 (1.7-2.4) mg/dl 08/19/24 08/19/24 Range/Units 20:27 16:12 WBC (4.8-10.8) K/ul RBC (4.70-6.10) M/uL Hgb (14.0-18.0) g/dl Hct (42.0-52.0) % MCV (80.0-100.0) fL MCH (25.0-34.0) pg MCHC (32.0-36.0) g/dL RDW Std Deviation (36.4-46.3) fL RDW Coeff of Mirtha (11.5-14.5) % Plt Count (130-400) K/uL MPV (9.4-12.4) fL Sodium (136-145) mmol/L Potassium (3.5-5.1) mmol/L Chloride (98-107) mmol/L Carbon Dioxide (21-32) mmol/L Anion Gap (3-11) BUN (6-23) mg/dl Creatinine (0.6-1.4) mg/dl Est Cr Clr Drug Dosing ml/min eGFR BUN/Creatinine Ratio (10-20) Glucose (70-99(Fasting)) mg/dl POC Glucose 128 H 155 H (70-99) mg/dl Calcium (8.6-10.3) mg/dl Phosphorus (2.5-4.9) mg/dl Magnesium (1.7-2.4) mg/dl Medications Administered Current Inpatient Medications Acetaminophen (Acetaminophen 325 Mg Tab) 650 mg PO Q4H PRN PRN Reason: Pain or Fever Stop: 09/14/24 12:11 Albuterol (Albut/Ipratrop 3mg/0.5mg Neb 3 Ml Vial) 3 ml NEB Q6R PRN; Protocol PRN Reason: Wheezing Stop: 09/14/24 12:59 Dextrose (Dextrose 50% 50 Ml Syringe) 25 - 50 ml IV UD PRN; Protocol PRN Reason: Hypoglycemia Protocol Stop: 09/15/24 11:14 Doxycycline Hyclate (Doxycycline Hyclate 100 Mg Cap) 100 mg PO BID KERA Stop: 08/22/24 12:29 Last Admin: 08/20/24 08:57 Dose: 100 mg Enoxaparin Sodium (Enoxaparin Inj 40 Mg/0.4 Ml Syr) 40 mg SQ Q24H KERA Stop: 09/14/24 12:29 Last Admin: 08/19/24 12:16 Dose: 40 mg Fluticasone/Vilanterol (Fluticasone/Vilanterol 100/25mcg 14 Puffs/Inhaler) 1 puffs INH DAILY KERA Stop: 09/19/24 08:59 Last Admin: 08/20/24 10:35 Dose: 1 puffs Gabapentin (Gabapentin 300 Mg Cap) 300 mg PO TID KERA Stop: 09/14/24 13:59 Last Admin: 08/20/24 08:57 Dose: 300 mg Glucagon (Glucagon For Inj 1 Mg Vial) 1 mg SQ UD PRN; Protocol PRN Reason: Hypoglycemia Protocol Stop: 09/15/24 11:14 Glucose (Glucose 40% Gel 15 Gm Tube) 15 - 30 gm PO UD PRN; Protocol PRN Reason: Hypoglycemia Protocol Stop: 09/15/24 11:14 Glucose (Glucose 10 Tab/Tube) 4 - 8 tab PO UD PRN; Protocol PRN Reason: Hypoglycemia Protocol Stop: 09/15/24 11:14 Guaifenesin (Guaifenesin 600 Mg Tabcr) 1,200 mg PO Q12 KERA Stop: 09/14/24 20:59 Last Admin: 08/20/24 08:58 Dose: 1,200 mg Insulin Aspart (Insulin Aspart Per Unit Charge) 0 units SC DAILY@0730 [facility] Stop: 09/15/24 16:29 Last Admin: 08/20/24 09:06 Dose: 4 units Insulin Aspart (Insulin Aspart Per Unit Charge) 0 units SC TID@1130,1630,2100 [facility] Stop: 09/18/24 11:29 Last Admin: 08/19/24 21:16 Dose: Not Given Insulin Glargine (Lantus Per Unit Charge) 8 units SC DAILY [facility] Stop: 09/18/24 08:59 Last Admin: 08/20/24 09:07 Dose: 8 units Loratadine (Loratadine 10 Mg Tab) 10 mg PO DAILY PRN PRN Reason: allergies Stop: 09/14/24 12:11 Miscellaneous (Carbohydrates For Hypoglycemia ) 15 - 30 gm PO UD PRN PRN Reason: Hypoglycemia Treatment Stop: 09/15/24 11:14 Miscellaneous Information (Pharmacy Glycemic Mgmt Consult) 1 each N/A UD PRN; Protocol PRN Reason: Consult Stop: 09/15/24 10:58 Ondansetron HCl (Ondansetron Inj 2 Mg/Ml 2 Ml Vial) 4 mg IV Q6H PRN PRN Reason: Nausea Stop: 09/14/24 12:11 Pantoprazole Sodium (Pantoprazole 40 Mg Tab) 40 mg PO QAM [facility] Stop: 09/15/24 08:59 Last Admin: 08/20/24 08:58 Dose: 40 mg Polyethylene Glycol (Polyethylene (Miralax) 17 Gm Pack) 17 gm PO DAILY PRN PRN Reason: Constipation Stop: 09/14/24 12:11 Prednisone (Prednisone 20 Mg Tab) 20 mg PO DAILY [facility] Stop: 09/18/24 08:59 Last Admin: 08/20/24 08:58 Dose: 20 mg Rosuvastatin Calcium (Rosuvastatin Calcium 10 Mg Tab) 10 mg PO DAILY [facility] Stop: 09/15/24 08:59 Last Admin: 08/20/24 08:58 Dose: 10 mg Umeclidinium [place] (Umeclidinium [place] 62.5mcg/Blister 7 Puffs/Inhaler) 1 puffs INH DAILY [facility] Stop: 09/18/24 08:59 Last Admin: 08/20/24 08:58 Dose: 1 puffs
[2024-08-20] MEDS: ALBUT/IPRATROP 3MG/0.5MG NEB 3 ML VIAL NEB PRN (22:36)
[2024-08-21 07:19] LABS: Hematocrit (blood only) 44.4 % (42.0-52.0); Hemoglobin 15.1 g/dl (14.0-18.0); Mean Corpuscular Hemoglobin 30.8 pg (25.0-34.0); Mean Corpuscular Volume 90.6 fL (80.0-100.0); Mean Platelet Volume 10.7 fL (9.4-12.4); Platelet Count 249 K/uL (130-400); RDW Coefficient of Variation 12.7 % (11.5-14.5); RDW Standard Deviation 41.8 fL (36.4-46.3); White Blood Count 11.89 K/ul (4.8-10.8)
[2024-08-21 07:36] LABS: BUN Creatinine Ratio 40.8 (10-20); Creatinine Clr Calc Pharmacy 103.8 ml/min; Phosphorus 3.1 mg/dl (2.5-4.9); Potassium 3.8 mmol/L (3.5-5.1)
[2024-08-21] MEDS: INFLUENZA VACC TS2024-25(6m+)/PF (IIV3) 0.5mL Syr IM ONE (08:24)
[2024-08-21 10:58] VITALS: TEMP 97.9
--- NOTE | 2024-08-21 11:07 | Pharmacy Report ---
Pharmacy Glycemic Short Note 2 - Date of Service August 21, 2024 - Glycemic Short BSG Results (Last 24 hours): 08/20/24 08/20/24 08/20/24 11:43 16:18 20:06 Glucose POC Glucose 95 193 H 109 H 08/21/24 08/21/24 06:24 07:29 Glucose 67 L POC Glucose 73 OUTPATIENT ANTIDIABETIC REGIMEN: * n/a HbA1c: 7.5% (08/16/24) ASSESSMENT: 08/21: * Prednisone 20 mg po qAM day 3 * AM hypoglycemia noted despite only 0.1 unit/kg of Lantus. Will hold. * BSG below goal at lunch yesterday, likely 2nd tighter CHO ratio at breakfast. Will loosen CHO at breakfast to be the same as the other checks. Regimen is significantly looser than weight-based moderate stress estimate 08/19: * Beverly received 20 units of insulin yesterday, 8 basal + 12 bolus. BSGs were 699-356-93-210 mg/dL. * Fasting BSG this AM was 236 mg/dL. Believe this is an erroneous result as serum BSG was 157 mg/dL. Did not make any adjustments to basal regimen. * IV Solumedrol was discontinued and Prednisone 20 mg PO AM was started this morning. * Due to dinner BSG dropping significantly yesterday, will go with tighter carb cover with breakfast only and loosen the carb coverage the rest of the day. 08/18: * Blood sugars well-controlled over past 36 hours (ranging 124-168 mg/dL) * Received 15 units of insulin yesterday (5 units of basal and 10 units of prandial/correctional bolus) * Fasting blood sugar of 148 mg/dL, will increase basal today * Steroids (methylprednisolone 40 mg IV) reduced from TID to BID yesterday, continued 08/16: * Pt is a 58 year old male admitted with rhinovirus/enterovirus COPD exa cerbation. New diabetes diagnosis- not on anti hyperglycemic medications at home. Pharmacy consulted to assist with inpatient glycemic management in setting of steroids. * BSGs 145-164 mg/dL so far this admission (no additional POCs were obtained today). * Receiving methylprednisolone 40mg IV TID and antibiotics. Currently NPO. * Initiate Novolog q6 moderate stress scale. Hold basal for now. PLAN FOR INPATIENT GLYCEMIC CONTROL: * Basal insulin * HOld * Bolus insulin * NovoLog per scale ACHS or Q6hrs while NPO * Goal Range: Low 110 mg/dL - High 140 mg/dL * Correction Factor: 45 mg/dL/unit * Carb Ratio: 15 g CHO/unit
--- NOTE | 2024-08-21 13:50 | Discharge Summary ---
Date of Service August 21, 2024 Admission HPI Per Admitting Provider Beverly Fermin is a 58y/o M with PMHx significant for severe COPD with emphysema, HLD, GERD, diverticulitis, DDD, major depressive disorder, tobacco use disorder and chronic back pain who presented to the ED via EMS secondary to worsening SOB/dyspnea. History obtained from patient, family at bedside and associated chart review. Patient seen at bedside with Dr. Vera. Patient's reports that she found him this morning hunched over in the bathroom and struggling to breathe. She was the one who called EMS. She mentions that he was recently around their granddaughter who has an upper respiratory illness. He has been feeling increasingly short of breath over the past 2 days per his . Does not recall any fevers. He does have COPD and uses Trelegy daily. reports that he is noncompliant with his albuterol nebulizer treatments but has been using his rescue inhaler quite frequently over the past few days without much relief. He smokes approximately 1 to 1 and 1/2 packs of cigarettes per day. He was recently prescribed an 8-day prednisone taper pack on 08/05/2024. Patient was endorsing some pain in his lower back region in addition to intermittent right- sided lower chest pain. Patient was in obvious respiratory distress when EMS arrived at his house, O2 sat % was in the 80s on RA. He received a DuoNeb en route without significant improvement. He was placed on BiPAP in the ED. VBG showed respiratory acidosis with a pH of 7.27 and pCO2 of 71mmHg. WBC notably elevated at 22.77k and RVP was positive for entero-/rhinovirus. Troponin also elevated at 44.8 on arrival, likely reactive secondary to respiratory status. Initial EKG showed baseline artifact but no obvious acute ST changes. CXR showed advanced emphysema with no active disease such as pneumonia. Admission Exam Per Admitting Provider General Appearance:Obese, no apparent distress Head: normocephalic, Atraumatic Eyes: normal inspection, EOMI Neck: supple, Trachea midline Respiratory/Chest: Decreased coarse breath sounds, wheezing, rhonchi, + accessory muscle use Cardiovascular: S1, S2, No murmur,+ tachycardia Abdomen/GI:Soft, Non tender, Bowel sounds present Extremities/Musculoskeletal:normal inspection, trace pedal edema Neurologic/Psych:AAOX3, grossly no focal neurological deficits Skin: normal color, warm Principal Diagnosis Acute respiratory failure with hypoxia and hypercapnia COPD exacerbation + Entero/rhinovirus Discharge Exam General Appearance: well nourished M in no apparent distress, on RA Head: normocephalic, Atraumatic Eyes: normal inspection, EOMI Neck: supple Respiratory/Chest: Decreased breath sounds., no wheezing. No accessory muscle use Cardiovascular: S1, S2, No murmur Abdomen/GI:Soft, Non tender, Bowel sounds present Extremities/Musculoskeletal:normal inspection, no LE edema Neurologic/Psych:AAOX3, grossly no focal neurological deficits Skin: warm, dry Discharge Data Allergies Allergy/AdvReac Type Severity Reaction Status Date / Time No Known Allergies Allergy Verified 06/27/24 13:11 Consultations 08/15/24 10:43 Consult Pulmonology Routine 08/15/24 10:55 ED Decision to Admit Stat Ordered Studies 08/15/24 13:33 CT angio chest PE protocol Stat FINDINGS: CTA: Trace pericardial effusion. Heart is normal in size. No thoracic aortic aneurysm or dissection. There is patency of the imaged great vessels. No pulmonary emboli identified. CT CHEST: No solid nodule or pathologically enlarged lymph nodes. Scattered partially calcified mediastinal and hilar lymph nodes compatible with prior granulomatous disease. No pneumothorax, pleural effusion or lobar airspace consolidation. Hyperinflation with advanced pulmonary emphysema. Bronchial wall thickening with bibasilar predominant mucus plugging. Mild dependent subsegmental bibasilar atelectasis. No suspicious pulmonary nodules or masses. Bony spurring involves a few right-sided lateral ribs with adjacent pleural parenchymal scarring of the lung. No acute upper abdominal abnormality. Had etc. ptosis. Unremarkable soft tissues. No acute fracture. IMPRESSION: 1. No pulmonary emboli identified. 2. Advanced emphysema with bronchitis and bibasilar mucous plugging. 3. Prior granulomatous disease. 4. Hepatic steatosis. Diabetes Follow up Diabetes Follow-up Needed for Newly Diagnosed Diabetes Hospital Course (1) Rhinovirus infection: (2) Respiratory acidosis: (3) Acute hypoxic respiratory failure: (4) Elevated troponin: Sophia Fermin is a 58y/o M with PMHx significant for severe COPD with emphysema, HLD, GERD, diverticulitis, DDD, major depressive disorder, tobacco use disorder and chronic back pain who presented to the ED via EMS secondary to worsening SOB/dyspnea and was found to be in acute hypoxic respiratory failure on arrival. Enterovirus/Rhinovirus Infection & Respiratory Acidosis Acute Hypoxic Respiratory Failure ISO Severe COPD w/ Emphysema : Patient's O2 sat was 88% on arrival to the ED. He was subsequently placed on BiPAP with improvement in his breathing. WBC 22.77k, RVP positive for entero-/rhinovirus. VBG showed respiratory acidosis with a pH of 7.27 and pCO2 of 71. CXR showed advanced emphysema with no active disease. Chest CTA 1. No pulmonary emboli identified. 2. Advanced emphysema with bronchitis and bibasilar mucous plugging. Procalcitonin negative BNP 91. Lactate negative. S/p 2g IV Rocephin, 125mg IV Solu-Medrol and hour-long albuterol neb in the ED. Continued IV Rocephin 2g Q24H, oral doxycycline added on as well. Pulmonary toilet with incentive spirometry, flutter valve and scheduled nebs. 40mg IV Solu-Medrol Q8H. Blood culture pending. Aspiration and contact precautions. Wean off BiPAP as tolerated. -> currently on suppl. O2 via [place] Patient will ultimately need close pulmonology follow-up at time of discharge. [facility], on home Trelegy. Encouraged smoking cessation. Denies need for nicotine patch at this time. Pulmonary medicine consulted PFT 04/07/2023: Very severe obstructive lung dysfunction, insignificant bron chodilator response, increased lung volumes with air trapping, moderate decrease in DLCO FVC 2.47 L 56%, FEV1 0.95 L, 27%, FEV1/FVC 38, TLC 134%, RV 336%, RV/TLC 78, DLCO 52% IV solumedrol q12 hrs -> switch to prednisone 20 mg x5 days formoterol inh, budesonide neb -. transition to breo. cont Incruse ellipta while inpt . can go back on trelegy on DC guaifenesin cont. doxycyline for 5 days - abx course finished while inpt Due to chronic respiratory failure consequent to very severe COPD, FEV1 27% predicted, patient now requires a noninvasive home ventilator. Patient would benefit greatly from noninvasive ventilation which would improve lung function and potentially reduce worsening of symptoms. A BiPAP would be ineffective as patient requires a volume targeted mode. Interruption of ventilator support would lead to a decline of health status. NIMV settings should be AVAPS-AE; Breath rate: auto; Inspiratory time:auto; Sigh : off; Tidal Volume: 350-450, PS min: 4-10 PS max: 12-20; EPAP min: 6-10; EPAP max: 10-16; AVAPS rate: 14 during sleep and as needed Elevated Troponin: Troponin elevated at 44.8 on arrival, likely reactive secondary to respiratory status, demand ischemia Initial EKG showed baseline artifact but no obvious acute ST changes. Continuous cardiac monitoring in place. Echo obtained - No regional wall motion abnormalities noted. LV is hyperdynamic. LVEF 65 to 70%. RV is normal in size and function. Doppler findings do not suggest pulmonary hypertension. Poss.New dg. of DM type 2 Possibly steroid induced. Hgb A1c 7.5% cont. novolog while inpt occupational ther consulted DISCHARGE RECOMMENDATIONS: 1.) Lifestyle changes, eliminate sugar-sweetened drinks and limit candy/sweets. Regular/balanced meals. 2.) Recheck hemoglobin A1c and fasting glucose x 3-6 months to guide need for diabetes medications. 3.) Follow-up with primary provider for further discussion and monitoring. Other Chronic Medical Conditions: HLD, GERD, chronic back pain and seasonal allergies --> Can continue home medications for these specific conditions. Total Time Total Time Spent Total Time Spent (In Minutes): 40 Discharge Plan Discharge Items Patient Disposition: Home - Self-Care Reason For Visit: ACUTE HYPOXIC RESP FAILURE Discharge Diagnosis: Acute respiratory failure with hypoxia and hypercapnia COPD exacerbation + Entero/rhinovirus Condition on Discharge: Fair Activity: Per Instructions section Non-emergency contact: Primary Care Provider and Department Helper Call non-emergency contact if: you have any medication questions and your symptoms worsen Follow-up/Referrals: Russell Pa MD [Outside Practitioners] - (Date & Time 08/27/2024 9:00 AM Provider Russell Pa MD Department Pulmonary Medicine, [facility] ) Octavio Miller MD [Primary Care Provider] - (Date & Time 08/26/2024 3:20 PM Provider Octavio Miller MD Department Family Practice [facility] ) Diet: Carb Consistent or DM2 and Heart Healthy Addtl Attending Provider Instructions: 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 Continue using Trelegy. Take prednisone 20 mg daily for next 5 days. It is crucial that you quit smoking. Your hemoglobin A1c was elevated (your blood sugars has been elevated). This can be secondary to steroid use. Follow up with your primary care physician to address any possibility of new diagnosis of diabetes. Pending Studies at Discharge: No Stand-Alone Forms: [facility], Smoking Cessation Medications and DC Order Prescriptions: New guaifenesin [Mucinex] 600 mg Tablet Extended Release 12hr 1,200 mg PO Q12 Qty: 20 0RF prednisone 20 mg Tablet 20 mg PO DAILY Qty: 5 0RF Continued gabapentin 300 mg capsule 300 mg PO TID loratadine [Claritin] 10 mg Tablet 10 mg PO DAILY PRN (Reason: allergies ) albuterol sulfate 2.5 mg /3 mL (0.083 %) solution for nebulization 2.5 mg inhalation QID PRN (Reason: Wheezing) omeprazole 20 mg capsule,delayed release(DR/EC) 40 mg PO QAM albuterol sulfate 90 mcg/actuation HFA aerosol inhaler 2 puff inhalation Q4H PRN (Reason: Dyspnea) rosuvastatin 10 mg tablet 10 mg PO DAILY Trelegy Ellipta 200-62.5-25 mcg blister with device 1 inh INHALATION DAILY Discharge Orders: Discharge Order (Routine); Ordered 08/21/24 Ordered By: Ernesto Abbott Admission Data Admit Date/Time: 08/15/24 10:43 Attending Provider: Ernesto Abbott Admit Provider: Deon Vera Primary Care Provider: Octavio Miller Other Providers: Ritika Anguiano; Deon Vera; [facility]
[2024-08-21 14:13] VITALS: BP 132/68; PULSE 97; RESP 20; O2SAT 94
== END 2024-08-21 14:40 | disposition home or self-care (01) | DRG 189 ==
LOC: ED 09:08 → SUATTDRO 10:43 → 2E 10:43